=== PATIENT | male | born 1935 | race Caucasian/White ===

== ENCOUNTER 2019-03-29 05:36 | Inpatient (IN) ==
[2019-03-29] MEDS ORDERED: SODIUM CHLORIDE 0.9% 1000ML 1,000 ML IV ONE (05:51)
[2019-03-29] MEDS ORDERED: fentaNYL citrate 100 MCG/2 ML VIAL IV STA ×2 (05:51→06:10)
[2019-03-29 06:06] LABS: Eosinophils # (auto) 0.14 K/uL (0-0.5); Eosinophils % (auto) 2.2 %; Hemoglobin 13.2 g/dL (14.0-18.0); Immature Granulocytes # (auto) 0.01 K/uL (0.00-0.02); Immature Granulocytes % (auto) 0.2 %; Lymphocytes # (auto) 2.09 K/uL (1.2-3.4); Lymphocytes % (auto) 33.2 %; Mean Corpuscular Hemoglobin 32.8 pg (25-34); Mean Corpuscular Hgb Conc 32.2 g/dL (32-36); Mean Corpuscular Volume 101.7 fL (80-100); Mean Platelet Volume 10.2 fL (7.4-10.4); Monocytes # (auto) 0.73 K/uL (0.11-0.59); Monocytes % (auto) 11.6 %; Neutrophils # (auto) 3.32 K/uL (1.4-6.5); Neutrophils % (auto) 52.8 %; Platelet Count 145 K/uL (130-400); RDW Coefficient of Variation 14.2 % (11.5-14.5); RDW Standard Deviation 52.6 fL (36.4-46.3); Red Blood Count 4.03 M/uL (4.7-6.1); White Blood Count 6.29 K/uL (4.8-10.8)
[2019-03-29 06:14] LABS: Alanine Aminotransferase 25 U/L (12-78); Albumin Level 3.4 gm/dl (3.4-5.0); Aspartate Aminotransferase 30 U/L (15-37); BUN Creatinine Ratio 23.9 (10-20); Blood Urea Nitrogen 21 mg/dl (7-18); Calcium 9.1 mg/dl (8.5-10.1); Carbon Dioxide 30 mmol/L (21-32); Chloride 105 mmol/L (98-107); Creatinine Clr Calc Pharmacy 65.1 ml/min; Est GFR (African American) 92.9; Est GFR (Non-African American) 80.2; Glucose 115 mg/dl (70-99); Lipase 268 U/L (73-393); Potassium 3.9 mmol/L (3.5-5.1); Sodium 139 mmol/L (136-145)
[2019-03-29 06:19] LABS: Alkaline Phosphatase 76 U/L (45-117); Bilirubin,Total 0.7 mg/dl (0.2-1); Globulin 3.4 gm/dl (2.5-4.0); Total Protein 6.8 gm/dl (6.4-8.2); Troponin I < 0.015 ng/ml (0-0.045)
[2019-03-29] MEDS ORDERED: IOVERSOL 100ml IV PRN (06:25)
--- NOTE | 2019-03-29 06:39 | CT Scan Report ---
CT abd pelvis IV con only CT DOSE: 374.23 mGy.cm CLINICAL HISTORY: Diffuse abdominal pain. TECHNIQUE: The patient was scanned in a dynamic helical fashion during intravenous administration of 92 cc Optiray 320 A dose lowering technique was utilized adhering to the principles of ALARA. COMPARISON STUDY: X-ray study dated 03/29/2019 FINDINGS: The heart is enlarged. There is a 9 mm left lower lobe pulmonary nodule. There is a 3 mm left lower l obe pulmonary nodule. There are subpleural fibrotic/atelectatic changes. There is a 9 mm subpleural r ight middle lobe opacity. No hepatic masses are visualized. No gallbladder lesions are evident. Splenic masses are visualized. No pancreatic masses are visualized. There is borderline dilatation of the pancreatic duct. No adrenal masses are visualized. There is no hydronephrosis. No solid renal masses are visualized. There is colonic dilatation. There is decompression of the rectum and distal sigmoid. There is a mese nteric swirl sign indicative of a sigmoid volvulus. There is no free intraperitoneal air. There is no pneumatosis. There is no evidence of abdominal aortic aneurysm. There is no significant ascites. There are borderline enlarged aortocaval lymph nodes. There is an indwelling IVC filter. There are postsurgical changes of a ventral hernia repair. No destructive skeletal lesions are visualized. IMPRESSION: 1. 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 2. Nonspecific lower lobe pulmonary nodules. The largest measures 9 mm. 3-6 month follow-up is recomm ended. Please refer to below summary of Fleischner criteria recommendations for follow-up of incidental CT n odules ([facility], Guidelines for management of small pulmonary nodules detected on CT scans: A sta tement from the Fleischner [employer], Radiology 237: [id number].) SOLID NODULES Solitary nodule size: <6 mm * low risk patients: no follow-up needed * high risk patients: optional CT at 12 months Solitary nodule size: 6-8 mm * low risk patients: follow-up at 6-12 months, then consider further follow-up at 18-24 months * high risk patients: initial follow-up CT at 6-12 months and then at 18-24 months if no change Solitary nodule size: >8 mm * either low or high risk patients - consider follow-up CT at 3 months, and/or CT-PET, and/or biopsy Multiple nodules size: <6 mm * low risk patients: no routine follow-up * high risk patients: optional CT at 12 months Multiple nodules size: 6-8 mm * low risk patients: follow-up at 3-6 months, then consider further follow-up at 18-24 months * high risk patients: follow-up at 3-6 months, then at 18-24 months if no change Multiple nodules size: >8 mm * low risk patients: follow-up at 3-6 months, then consider further follow-up at 18-24 months * high risk patients: follow-up at 3-6 months, then at 18-24 months if no change Note: newly detected indeterminate nodule in persons 35 years of age or older. * low risk patients: minimal or absent history of smoking and/or other known risk factors * high risk patients: history of smoking or of other known risk factors (e.g. first degree relative with lung cancer, or exposure to asbestos, radon, uranium) * if a nodule up to 8 mm is partly solid or is ground glass further follow-up is required after [address] m [address] to exclude possible slow growing adenocarcinoma (SOUTH) SUBSOLID NODULES Solitary pure ground-glass nodule * nodule size <6 mm - no CT follow-up required * nodule size >=6 mm - follow-up CT at 6-12 months, then every 2 years until 5 years Solitary part-solid nodule * nodule size <6 mm - no CT follow-up required * nodule size >=6 mm - follow-up CT at 3-6 months. If unchanged, and solid component remains <6 mm, then annual follow-up for 5 years Multiple subsolid nodules * nodule size <6 mm - follow-up CT at 3-6 months, consider further follow-up at 2 and 4 years if sta ble * nodule size >=6 mm - follow-up CT at 3-6 months, subsequent management based on the most suspiciou s nodule(s) ACT 112: Negative or not required by law. Electronically signed by: Calderon Menendez M.D. 03/29/2019 6:38 AM
[2019-03-29] MEDS ORDERED: HYDROmorphone INJ 1 MG/ML SYRINGE IV STA (06:49)
[2019-03-29] MEDS ORDERED: HYDROmorphone INJ 1 MG/ML SYRINGE ONE (06:50)
--- NOTE | 2019-03-29 06:50 | XRay Report ---
XR abdomen 2V w PA chest CLINICAL HISTORY: Abdominal distention COMPARISON STUDY: No previous studies for comparison. FINDINGS: There are postsurgical changes of a midline sternotomy. There is mediastinal widening possi negrita secondary to aortic tortuosity/ectasia. There is no free air. There is colonic dilatation with a paucity of rectal gas. Clinical correlation regards to distal large bowel obstruction is recommended. IMPRESSION: 1. No free air identified 2. Dilated colon with a paucity of rectal gas. The findings raise the possibility of a distal colonic obstruction. ACT 112: Negative or not required by law. Electronically signed by: Calderon Menendez M.D. 03/29/2019 6:49 AM
[2019-03-29 06:52] LABS: Appearance Urine Clear (Clear); Bilirubin Urine Negative (Negative); Blood Urine Negative (Negative); Color Urine Yellow; Glucose Urine UA Negative (Negative); Ketones Urine Negative (Negative); Leukocyte Esterase Urine Negative (Negative); Nitrite Urine Negative (Negative); Protein Urine Negative (Negative); Specific Gravity Urine 1.022 (1.000-1.030); Urobilinogen Urine Negative (Negative); pH Urine 7.5 (4.5-7.5)
--- NOTE | 2019-03-29 07:17 | Emergency Department Note ---
Entered by Jovanni Saravia acting as a scribe for History of Present Illness General Chief complaint: Abdominal Pain Stated complaint: abdominal pain Time Seen by Provider: 03/29/19 05:41 Source: patient History of Present Illness Onset (ago): day(s) 2 Location: abdomen Severity: similar to prior episodes Pain Consistency: + other (worsening) Associated symptoms: + other (Positive for weakness. Negative for CP and SOB. ) The patient is an 83 year old male who presents to the emergency department with complaints of worsening abdominal pain beginning two days ago. The patient states that he developed abdominal pain two days ago that worsened this morning. 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 He reports that he had part of his small bowel removed at that time. The patient states that his symptoms feel similar to his past SBO. He also complains of weakness and back pain. She notes that he did not move his bowels much today. He denies any CP and SOB. Home Medications Home Medications Medication Instructions Recorded Confirmed Type aspirin 81 mg chewable tablet 81 mg PO DAILY 02/11/19 03/29/19 History atorvastatin 20 mg tablet 20 mg PO DAILY 02/11/19 03/29/19 History finasteride 5 mg tablet 5 mg PO DAILY 02/11/19 03/29/19 History furosemide 20 mg tablet 20 mg PO DAILY 02/11/19 03/29/19 History iron,carbonyl 65 mg-vitamin C 125 1 tab PO DAILY 02/11/19 03/29/19 History mg tablet,delayed release latanoprost 0.005 % eye drops 1 drops OP HS ml 02/11/19 03/29/19 History lisinopril 5 mg tablet 5 mg PO DAILY 02/11/19 03/29/19 History metoprolol succinate 25 mg capsule 25 mg PO DAILY 02/11/19 03/29/19 History sprinkle, ext. release 24 hr jhzwxcdmqfpx-hngedafj-vbmmba 1 tab PO DAILY 02/11/19 03/29/19 History rivaroxaban 20 mg tablet 20 mg PO QPM 02/11/19 03/29/19 History tamsulosin 0.4 mg capsule 0.4 mg PO DAILY 02/11/19 03/29/19 History vit 1 cap PO DAILY cap 02/11/19 03/29/19 History C,E,zinc,Xt-wnxkm-9-lutein-zeaxanthin 250 mg-2.5 mg-0.5 mg capsule temazepam 30 mg capsule 30 mg PO DAILY #30 cap 02/12/19 03/29/19 Rx Allergies Allergy/AdvReac Type Severity Reaction Status Date / Time No Known Allergies Allergy Unverified 02/11/19 13:36 Past Med/Surg History Medical History (Updated 03/29/19 @ 07:05 by Jovanni Saravia) History of blood clots HTN (hypertension), benign Sensorineural hearing loss of both ears Surgical History (Updated 02/11/19 @ 13:45 by Tom Millard) History of ankle surgery due to broken ankle History of aortic valve replacement History of back surgery History of left cataract surgery History of right cataract surgery Family History (Updated 02/11/19 @ 13:46 by Tom Millard) Mother Heart disease Hypertension Father Hypertension Social History (Updated 02/11/19 @ 13:49 by Tom Millard) Preferred Language: [place]aguan Communication Ability: Effective Hearing Ability: Hard of Hearing marital status: Single Current Living Situation: Alone current occupational status: retired Feels Safe at Home: Yes Smoking Status: Never smoker Second Hand Exposure: No ; Hx Alcohol Use: Yes Alcohol type: wine Alcohol Intake Frequency: Weekly Alcohol Intake Frequency Comment: 2 drinks per week Hx Substance Use: No Dental Care, Regularly: Yes Seatbelt Use: always Review of Systems See HPI for pertinent positives & negatives. and A total of 10 systems reviewed and were otherwise negative Physical Exam Vital Signs Vital Signs - 24 hr 03/29/19 05:40 03/29/19 05:53 03/29/19 06:28 Temperature 36.4 C L Temperature Source Oral Pulse Rate 54 L Pulse Rate [Right Finger] 58 L Pulse Rhythm Regular Pulse Strength Normal Respiratory Rate 20 20 Respiratory Effort / Characteristics Non-Labored Spontaneous Respiratory Depth Normal Respiratory Pattern Regular Blood Pressure 175/100 H Blood Pressure [Right Arm] 185/117 H Blood Pressure Mean 125 Blood Pressure Mean [Right Arm] 139 Pulse Oximetry 98 100 98 Oxygen Delivery Method Room Air Room Air Room Air Sepsis Recent Fever Within 48 Hours No Sepsis Action Taken by Nursing No Action Required 03/29/19 06:46 Temperature Temperature Source Pulse Rate Pulse Rate [Right Finger] 54 L Pulse Rhythm Pulse Strength Respiratory Rate 24 Respiratory Effort / Characteristics Respiratory Depth Respiratory Pattern Blood Pressure Blood Pressure [Right Arm] 153/105 H Blood Pressure Mean Blood Pressure Mean [Right Arm] 121 Pulse Oximetry 94 Oxygen Delivery Method Room Air Sepsis Recent Fever Within 48 Hours Sepsis Action Taken by Nursing HEENT: Head - normocephalic and atraumatic Pupils are equal, round, and reactive to light. Extraocular eye muscles are intact, and sclera are anicteric. Nose - moist nasal mucosa without discharge. Mouth - dry buccal mucosa. Oropharynx is nonerythematous and there is no tonsillar exudate or edema noted. Neck: Supple; no cervical lymphadenopathy. Heart: Regular rhythm and bradycardic. There is a normal S1 and S2 with no murmurs, clicks, or gallops appreciated. Lungs: Clear to auscultation bilaterally with no wheezes, rales, or rhonchi. Abdomen: Hard, significantly distended with tinkling bowel sounds. There are no palpable pulsatile masses or hepatosplenomegaly. The patient has guarding rigidity and rebound noted on physical exam. Diffuse abdominal distention. Extremities: No evidence of cyanosis clubbing. There are easily palpable peripheral pulses. Trace pedal edema in the legs. Skin: warm and dry with good turgor and no rashes. Course Course 0547: The patient was evaluated in room B2. A complete history and physical examination were performed. Nursing notes and previous electronic medical records were reviewed. IV lock was established and labs were drawn as above. 0602: Fentanyl Citrate 50mcg IV 0605: Sodium Chloride 1000 mls @ 999 mls/hr IV. The patient had a portable obstruction series which was concerning for free air versus volvulus. There is no obvious pulmonary pathology. 0614: Fentanyl Citrate 50mcg IV. The patient will go for CT scan of the abdomen/pelvis 0650: I reevaluated and updated the patient on the results of the labs and CT scan. 0651: Hydromorphone HCl 1mg IV 0653: Upon reevaluation, the patient is stable. I discussed the findings and the treatment plan with the patient. He expresses agreement and understanding. I spoke with of the Dr Edwin Sow [facility]. He will evaluate the patient. 0720: There is still significant pain. The patient was given 4 mg of IV morphine and 4 mg of IV Zofran. He is awaiting GI evaluation. Consultations Consultation #1: I reviewed the patient's case with Dr. Edwin Sow [facility]. He will evaluate the patient for further management. Time: 06:53 Administered Medications Ioversol (Optiray 320 100ml) 100 ml IV ONCE PRN PRN Reason: Interaction Checking Stop: 04/02/19 06:24 Last Admin: 03/29/19 06:26 Dose: 92 ml Documented by: [id number] Discontinued Medications Fentanyl Citrate (Fentanyl Citrate) 50 mcg IV NOW STA Stop: 03/29/19 05:52 Last Admin: 03/29/19 06:02 Dose: 50 mcg Documented by: [id number] Fentanyl Citrate (Fentanyl Citrate) 50 mcg IV NOW STA Stop: 03/29/19 06:11 Last Admin: 03/29/19 06:14 Dose: 50 mcg Documented by: [id number] Hydromorphone HCl (Dilaudid) 1 mg IV NOW STA Stop: 03/29/19 06:50 Last Admin: 03/29/19 06:51 Dose: 1 mg Documented by: [id number] Hydromorphone HCl (Dilaudid) Confirm Administered Dose 1 mg .ROUTE .STK-MED ONE Stop: 03/29/19 06:51 Last Admin: 03/29/19 06:51 Dose: Not Given Documented by: [id number] Sodium Chloride (Nss 1000ml) 1,000 mls @ 999 mls/hr IV .Q1H1M ONE Stop: 03/29/19 06:51 Last Admin: 03/29/19 06:05 Dose: 999 mls/hr Documented by: [id number] Medical Decision Making Differential Diagnosis Differential diagnoses includes: SBO, gastritis, cystitis, and ureteral calculi. Medical Records Attestation: I reviewed the patient's medical records. Home Medications Current Medication List: was personally reviewed by me Laboratory Data Attestation: I reviewed the patient's lab results. Result diagrams: 03/29/19 05:30 03/29/19 05:30 Lab Results 03/29/19 03/29/19 03/29/19 Range/Units 05:30 05:30 06:44 WBC 6.29 (4.8-10.8) K/uL RBC 4.03 L (4.7-6.1) M/uL Hgb 13.2 L (14.0-18.0) g/dL Hct 41.0 L (42-52) % MCV 101.7 H (80-100) fL MCH 32.8 (25-34) pg MCHC 32.2 (32-36) g/dL RDW Std Deviation 52.6 H (36.4-46.3) fL RDW Coeff of Any 14.2 (11.5-14.5) % Plt Count 145 (130-400) K/uL MPV 10.2 (7.4-10.4) fL Immature Gran % (Auto) 0.2 % Neut % (Auto) 52.8 % Lymph % (Auto) 33.2 % Clinch % (Auto) 11.6 % Eos % (Auto) 2.2 % Baso % (Auto) 0.0 % Immature Gran # (Auto) 0.01 (0.00-0.02) K/uL Neut # (Auto) 3.32 (1.4-6.5) K/uL Lymph # (Auto) 2.09 (1.2-3.4) K/uL Clinch # (Auto) 0.73 H (0.11-0.59) K/uL Eos # (Auto) 0.14 (0-0.5) K/uL Baso # (Auto) 0.00 (0-0.2) K/uL Sodium 139 (136-145) mmol/L Potassium 3.9 (3.5-5.1) mmol/L Chloride 105 (98-107) mmol/L Carbon Dioxide 30 (21-32) mmol/L Anion Gap 4.0 (3-11) BUN 21 H (7-18) mg/dl Creatinine 0.89 (0.6-1.4) mg/dl Est Cr Clr Drug Dosing 65.1 ml/min Est GFR ( Amer) 92.9 Est GFR (Non-Af Amer) 80.2 BUN/Creatinine Ratio 23.9 H (10-20) Glucose 115 H (70-99) mg/dl Calcium 9.1 (8.5-10.1) mg/dl Total Bilirubin 0.7 (0.2-1) mg/dl AST 30 (15-37) U/L ALT 25 (12-78) U/L Alkaline Phosphatase 76 (45-117) U/L Troponin I < 0.015 (0-0.045) ng/ml Total Protein 6.8 (6.4-8.2) gm/dl Albumin 3.4 (3.4-5.0) gm/dl Globulin 3.4 (2.5-4.0) gm/dl Albumin/Globulin Ratio 1.0 (0.9-2) Lipase 268 (73-393) U/L Urine Color Yellow Urine Appearance Clear (Clear) Urine pH 7.5 (4.5-7.5) Ur Specific [place] 1.022 (1.000-1.030) Urine Protein Negative (Negative) Urine Glucose (UA) Negative (Negative) Urine Ketones Negative (Negative) Urine Blood Negative (Negative) Urine Nitrite Negative (Negative) Urine Bilirubin Negative (Negative) Urine Urobilinogen Negative (Negative) Ur Leukocyte Esterase Negative (Negative) Imaging Data Radiologist's Impression: Radiology results as stated below per my review and the radiologist's interpretation: CT abd pelvis IV con only FINDINGS: The heart is enlarged. There is a 9 mm left lower lobe pulmonary nodule. There is a 3 mm left lower lobe pulmonary nodule. There are subpleural fibrotic/atelectatic changes. There is a 9 mm subpleural right middle lobe opacity. No hepatic masses are visualized. No gallbladder lesions are evident. Splenic masses are visualized. No pancreatic masses are visualized. There is borderline dilatation of the pancreatic duct. No adrenal masses are visualized. There is no hydronephrosis. No solid renal masses are visualized. There is colonic dilatation. There is decompression of the rectum and distal sigmoid. There is a mesenteric swirl sign indicative of a sigmoid volvulus. There is no free intraperitoneal air. There is no pneumatosis. There is no evidence of abdominal aortic aneurysm. There is no significant ascites. There are borderline enlarged aortocaval lymph nodes. There is an indwelling IVC filter. There are postsurgical changes of a ventral hernia repair. No destructive skeletal lesions are visualized. IMPRESSION: 1. 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 2. Nonspecific lower lobe pulmonary nodules. The largest measures 9 mm. 3-6 month follow-up is recommended. Please refer to below summary of Fleischner criteria recommendations for follow- up of incidental CT nodules ([facility], Guidelines for management of small pulmonary nodules detected on CT scans: A statement from the Fleischner [employer], Radiology 237: [phone].) SOLID NODULES Solitary nodule size: <6 mm * low risk patients: no follow-up needed * high risk patients: optional CT at 12 months Solitary nodule size: 6-8 mm * low risk patients: follow-up at 6-12 months, then consider further follow-up at 18-24 months * high risk patients: initial follow-up CT at 6-12 months and then at 18-24 months if no change Solitary nodule size: >8 mm * either low or high risk patients - consider follow-up CT at 3 months, and/or CT-PET, and/or biopsy Multiple nodules size: <6 mm * low risk patients: no routine follow-up * high risk patients: optional CT at 12 months Multiple nodules size: 6-8 mm * low risk patients: follow-up at 3-6 months, then consider further follow-up at 18-24 months * high risk patients: follow-up at 3-6 months, then at 18-24 months if no change Multiple nodules size: >8 mm * low risk patients: follow-up at 3-6 months, then consider further follow-up at 18-24 months * high risk patients: follow-up at 3-6 months, then at 18-24 months if no change Note: newly detected indeterminate nodule in persons 35 years of age or older. * low risk patients: minimal or absent history of smoking and/or other known risk factors * high risk patients: history of smoking or of other known risk factors (e.g. first degree relative with lung cancer, or exposure to asbestos, radon, uranium) * if a nodule up to 8 mm is partly solid or is ground glass further follow-up is required after 24 months to exclude possible slow growing adenocarcinoma (SOUTH) SUBSOLID NODULES Solitary pure ground-glass nodule * nodule size <6 mm - no CT follow-up required * nodule size >=6 mm - follow-up CT at 6-12 months, then every 2 years until 5 years Solitary part-solid nodule * nodule size <6 mm - no CT follow-up required * nodule size >=6 mm - follow-up CT at 3-6 months. If unchanged, and solid component remains <6 mm, then annual follow-up for 5 years Multiple subsolid nodules * nodule size <6 mm - follow-up CT at 3-6 months, consider further follow-up at 2 and 4 years if stable * nodule size >=6 mm - follow-up CT at 3-6 months, subsequent management based on the most suspicious nodule(s) ACT 112: Negative or not required by law. Electronically signed by: Calderon Menendez M.D. 03/29/2019 6:38 AM XR abdomen 2V w PA chest FINDINGS: There are postsurgical changes of a midline sternotomy. There is mediastinal widening possibly secondary to aortic tortuosity/ectasia. There is no free air. There is colonic dilatation with a paucity of rectal gas. Clinical correlation regards to distal large bowel obstruction is recommended. IMPRESSION: 1. No free air identified 2. Dilated colon with a paucity of rectal gas. The findings raise the possibility of a distal colonic obstruction. ACT 112: Negative or not required by law. Electronically signed by: Calderon Menendez M.D. 03/29/2019 6:49 AM ECG Data Attestation: I personally reviewed and interpreted this ECG as follows: Indication: + abdominal pain Rate (beats per minute): 53 Rhythm: + atrial fibrillation ECG ST segments: + ST depression (Lateral) Comparison ECG Date: no prior available Additional Comments: Slow ventricular response. Blood Pressure Blood Pressure Findings: Elevated blood pressure Blood Pressure Disposition: elevated BP felt to be situational MDM Narrative The patient is an 83 year old male who presents to the emergency department with complaints of worsening abdominal pain beginning two days ago. The patient has severe abdominal distention and pain. He has required multiple doses of IV analgesia. Patient has a sigmoid volvulus. I discussed the case with gastroenterology and they will evaluate the patient. Impression & Plan Sigmoid volvulus Discharge Plan Visit Data Chief Complaint: Abdominal Pain Stated Complaint: abdominal pain ED Provider: Liya Kim Discharge Problem: Sigmoid volvulus Patient Disposition: Being Evaluated by Surgeon Forms Stand Alone Forms: My [facility] Prescriptions Prescriptions: No Action latanoprost 0.005 % drops 1 drops OP HS RF: 0 Xarelto 20 mg tablet 20 mg PO QPM RF: 0 atorvastatin 20 mg tablet 20 mg PO DAILY RF: 0 lisinopril 5 mg tablet 5 mg PO DAILY RF: 0 metoprolol succinate 25 mg capsule,sprinkle,ER 24hr 25 mg PO DAILY RF: 0 furosemide 20 mg tablet 20 mg PO DAILY RF: 0 finasteride 5 mg tablet 5 mg PO DAILY RF: 0 tamsulosin [Flomax] 0.4 mg capsule 0.4 mg PO DAILY RF: 0 aspirin [Leslie Chewable Aspirin] 81 mg tablet,chewable 81 mg PO DAILY RF: 0 vit C,E,Zn,Nu--ykd-zeax 250-2.5-0.5 mg capsule 1 cap PO DAILY RF: 0 gbcrwyxajupd-kqfmkbvm-yswxaz tablet 1 tab PO DAILY RF: 0 Vitron-C 65 mg iron- 125 mg tablet,delayed release (DR/EC) 1 tab PO DAILY RF: 0 temazepam 30 mg capsule 30 mg PO DAILY Qty: 30 RF: 5 Referrals Referrals: Jaclyn Hitchcock MD [Primary Care Provider] - The scribe's documentation has been prepared under my direction and personally reviewed by me in its entirety. I confirm that the note above accurately reflects all work, treatment, procedures, and medical decision making performed by me.
[2019-03-29] MEDS ORDERED: MoRPHine SULFATE 4 MG/ML 1 ML CARP\\VIAL IV STA (07:23)
[2019-03-29] MEDS ORDERED: ONDANSETRON INJ 2 MG/ML 2 ML VIAL IV STA (07:23)
[2019-03-29] MEDS ORDERED: LIDOCAINE HCL 2% 2 ML VIAL/AMP(20MG/ML) INFIL ONE (07:54)
[2019-03-29] MEDS ORDERED: PROPOFOL IV EMULSION 10 MG/ML 20 ML VIAL IV ONE (07:54)
--- NOTE | 2019-03-29 08:09 | Gastrointestinal Consultation ---
Date of Consultation March 29, 2019 Assessment & Plan (1) Sigmoid volvulus: Proceed with emergent colonoscopy for sigmoid decompression. I did inform him, that if this is not successful, or if his sigmoid volvulus recurs, he will need surgery Consult surgery for further evaluation and recommendations. Continue supportive care. History of Present Illness Reason for Consultation: Sigmoid Volvulus History of Present Illness Rubén Thapa is an 83 yo CM who presented to the ER today with complaints of abdominal pain and bloating. He stated that his pain began 2 days prior to evaluation and was 8/10 in intensity. He denied any vomiting, but did have intermittent nausea with the bloating. 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 Lab studies in the ER revealed a slight decrease in H/H and a CT abd/pelvis revealed a sigmoid volvulus. I was contacted emergently for this. At the time I saw the patient in pre-op endoscopy area, he continued to complain of 9/10 abdominal pain, generalized, constant, radiating to his back. He states he has never had a sigmoid volvulus in the past, and does not remember the date of his last colonoscopy. He denies any further complaints. Allergies Allergy/AdvReac Type Severity Reaction Status Date / Time No Known Allergies Allergy Unverified 02/11/19 13:36 Home Medications Home Medications Medication Instructions Recorded Confirmed Type aspirin 81 mg chewable tablet 81 mg PO DAILY 02/11/19 03/29/19 History atorvastatin 20 mg tablet 20 mg PO DAILY 02/11/19 03/29/19 History finasteride 5 mg tablet 5 mg PO DAILY 02/11/19 03/29/19 History furosemide 20 mg tablet 20 mg PO DAILY 02/11/19 03/29/19 History iron,carbonyl 65 mg-vitamin C 125 1 tab PO DAILY 02/11/19 03/29/19 History mg tablet,delayed release latanoprost 0.005 % eye drops 1 drops OP HS ml 02/11/19 03/29/19 History lisinopril 5 mg tablet 5 mg PO DAILY 02/11/19 03/29/19 History metoprolol succinate 25 mg capsule 25 mg PO DAILY 02/11/19 03/29/19 History sprinkle, ext. release 24 hr [id number]-abeoxzwb-gpmtoe 1 tab PO DAILY 02/11/19 03/29/19 History rivaroxaban 20 mg tablet 20 mg PO QPM 02/11/19 03/29/19 History tamsulosin 0.4 mg capsule 0.4 mg PO DAILY 02/11/19 03/29/19 History vit 1 cap PO DAILY cap 02/11/19 03/29/19 History C,E,zinc,Te-tuene-7-lutein-zeaxanthin 250 mg-2.5 mg-0.5 mg capsule temazepam 30 mg capsule 30 mg PO DAILY #30 cap 02/12/19 03/29/19 Rx Patient History Medical History History of blood clots HTN (hypertension), benign Sensorineural hearing loss of both ears Surgical History History of ankle surgery due to broken ankle History of aortic valve replacement History of back surgery History of left cataract surgery History of right cataract surgery Family History Mother Heart disease Hypertension Father Hypertension Social History Preferred Language: Amharic Communication Ability: Effective Hearing Ability: Hard of Hearing marital status: Single Current Living Situation: Alone current occupational status: retired Feels Safe at Home: Yes Smoking Status: Never smoker Second Hand Exposure: No ; Hx Alcohol Use: Yes Alcohol type: wine Alcohol Intake Frequency: Weekly Alcohol Intake Frequency Comment: 2 drinks per week Hx Substance Use: No Dental Care, Regularly: Yes Seatbelt Use: always Review of Systems Review of Systems: All systems reviewed & are unremarkable except as noted in HPI & below Physical Exam Constitutional: + ill appearing and + thin Eyes: PERRL, conjunctivae normal, anicteric sclerae ENMT: external ear and nose normal, oropharynx normal Neck: trachea midline, no thyromegaly Respiratory: normal respiratory effort, lungs clear to auscultation Cardiovascular: Rate/Rhythm: + irregularly irregular Gastrointestinal (Abdomen): Inspection/Auscultation: + abdomen distended; + abnormal bowel sounds (minimal with trace tinkling auscultated) Percussion/Palpation: + abdomen tender; no guarding and abdomen not rigid Skin: no rashes, warm and dry Psychiatric: A+Ox3, euthymic affect Results & Data Vital Signs (Past 12 Hours) Vital Signs Temp Pulse Pulse Resp BP BP Pulse Ox 03/29/19 07:53 62 28 H 163/102 H 96 03/29/19 07:14 67 28 H 181/120 H 03/29/19 06:46 54 L 24 153/105 H 94 03/29/19 06:28 58 L 20 185/117 H 98 03/29/19 05:53 100 03/29/19 05:40 36.4 C L 54 L 20 175/100 H 98 PG Care Time/CCT Total # of Minutes Spent Total Time Spent with Patient: Total time spent is greater than 50% in coordination of care (as documented) at patient's floor/unit and/or counseling patient:
--- NOTE | 2019-03-29 08:19 | Anesthesiology Consultation ---
Date of Service March 29, 2019 Assessment & Plan (1) Encounter for pre-operative examination: Chart Review Chart Review: Acceptable Risk for Surgery and Patient NOT seen in Pre Admission Testing Consults Requested none History Surgery Operation Date: 03/29/19 16:30 Proposed Procedures p Colonoscopy Dr. Edwin Sanches Case, DO Height/Weight Height: 5 ft 9 in Weight: 73.7 kg Allergies Allergy/AdvReac Type Severity Reaction Status Date / Time No Known Allergies Allergy Unverified 02/11/19 13:36 Medications Home Medications Medication Instructions Recorded Confirmed Last Taken aspirin 81 mg chewable tablet 81 mg PO DAILY 02/11/19 03/29/19 03/28/19 atorvastatin 20 mg tablet 20 mg PO DAILY 02/11/19 03/29/19 03/28/19 finasteride 5 mg tablet 5 mg PO DAILY 02/11/19 03/29/19 03/28/19 furosemide 20 mg tablet 20 mg PO DAILY 02/11/19 03/29/19 03/28/19 iron,carbonyl 65 mg-vitamin C 125 1 tab PO DAILY 02/11/19 03/29/19 03/28/19 mg tablet,delayed release latanoprost 0.005 % eye drops 1 drops OP HS ml 02/11/19 03/29/19 03/28/19 lisinopril 5 mg tablet 5 mg PO DAILY 02/11/19 03/29/19 03/28/19 metoprolol succinate 25 mg capsule 25 mg PO DAILY 02/11/19 03/29/19 03/28/19 sprinkle, ext. release 24 hr [id number]-tjmcnacf-tejarl 1 tab PO DAILY 02/11/19 03/29/19 03/28/19 rivaroxaban 20 mg tablet 20 mg PO QPM 02/11/19 03/29/19 03/28/19 tamsulosin 0.4 mg capsule 0.4 mg PO DAILY 02/11/19 03/29/19 03/28/19 vit 1 cap PO DAILY cap 02/11/19 03/29/19 03/28/19 C,E,zinc,Go-umlpw-3-lutein-zeaxanthin 250 mg-2.5 mg-0.5 mg capsule temazepam 30 mg capsule 30 mg PO DAILY #30 cap 02/12/19 03/29/19 03/28/19 NPO Date Last Intake of Fluids: 03/28/19 Time Last Intake of Fluids: 18:00 Date Last Intake of Solids: 03/28/19 Time Last Intake of Solids: 23:00 Past Medical History Medical History History of blood clots HTN (hypertension), benign Sensorineural hearing loss of both ears Past Family History Family History Mother Heart disease Hypertension Father Hypertension Past Surgical History Surgical History History of ankle surgery due to broken ankle History of aortic valve replacement History of back surgery History of left cataract surgery History of right cataract surgery Social History Smoking Status: Never smoker Hx Alcohol Use: Yes Alcohol type: wine Hx Substance Use: No Physical Exam Vital Signs Last Vital Signs Temp 36.6 C 03/29/19 08:13 Pulse 50 L 03/29/19 08:13 Resp 18 03/29/19 08:13 BP 169/117 H 03/29/19 08:13 Pulse Ox 97 03/29/19 08:13 Testing Laboratory Results 03/29/19 05:30 03/29/19 05:30 Urine Color Yellow 03/29/19 06:44 Urine Appearance Clear (Clear) 03/29/19 06:44 Urine pH 7.5 (4.5-7.5) 03/29/19 06:44 Ur Specific [place] 1.022 (1.000-1.030) 03/29/19 06:44 Urine Protein Negative (Negative) 03/29/19 06:44 Urine Glucose (UA) Negative (Negative) 03/29/19 06:44 Urine Ketones Negative (Negative) 03/29/19 06:44 Urine Nitrite Negative (Negative) 03/29/19 06:44 Ur Leukocyte Esterase Negative (Negative) 03/29/19 06:44
[2019-03-29] MEDS ORDERED: ePHEDrine sulfate 50 MG/ML AMP IV PRN (08:23)
[2019-03-29] MEDS ORDERED: ATROPINE SULFATE 0.1 MG/ML 10ML SYR IV PRN (08:23)
--- NOTE | 2019-03-29 08:57 | GI REPORT ---
Patient Name: Rubén Thapa Procedure Date: 03/29/2019 8:03 AM Date of : 1935 Admit Type: Emergency Department Age: 83 Gender: Male Attending MD: Red Pineda DO Procedure: Colonoscopy Providers: Red Pineda DO Referring MD: Referred Self Indications: Volvulus Medicines: Monitored Anesthesia Care Complications: No immediate complications. Estimated Blood Loss: Estimated blood loss: none. Procedure: Pre-Anesthesia Assessment: - Prior to the procedure, a History and Physical was performed, and patient medications and allergies were reviewed. The patient's tolerance of previous anesthesia was also reviewed. The risks and benefits of the procedure and the sedation options and risks were discussed with the patient. All questions were answered, and informed consent was obtained. Prior Anticoagulants: The patient last took aspirin 1 day and Xarelto (rivaroxaban) 1 day prior to the procedure. ASA Grade Assessment: III - A patient with severe systemic disease. After reviewing the risks and benefits, the patient was deemed in satisfactory condition to undergo the procedure. After I obtained informed consent, the scope was passed under direct vision. Throughout the procedure, the patient's blood pressure, pulse, and oxygen saturations were monitored continuously. The Scope was introduced through the anus and advanced to the transverse colon for evaluation. This was the intended extent. The colonoscopy was somewhat difficult due to inadequate bowel prep. The patient tolerated the procedure well. The quality of the bowel preparation was inadequate. No anatomical landmarks were photographed. Findings: The perianal and digital rectal examinations were normal. A probable volvulus with apparent localized ischemia was found in the sigmoid colon. Decompression of the volvulus was attempted, and partial decompression was achieved. Impression: - Preparation of the colon was inadequate. - Probable volvulus. Partial decompression achieved. - No specimens collected. Recommendation: - Admit the patient to [facility] for ongoing care. - NPO. - No repeat colonoscopy. - Refer to a surgeon. - Fleets Enema today x 2 - Check Abdominal series following enema therapy. Red Pineda DO 03/29/2019 8:56:41 AM This report has been signed electronically. Note Initiated On: 03/29/2019 8:03 AM Number of Addenda: 0 I attest to the content of the Intraoperative Record and orders documented therein, exceptions below {[id number]}
--- NOTE | 2019-03-29 08:59 | History & Physical Report ---
Date of Service March 29, 2019 Assessment & Plan (1) Sigmoid volvulus: s/p decompression by Dr. Pineda plan for Fleet Enema q6 x 3 doses check Abdominal film this afternoon consult general surgery keep NPO except medications that are needed, such as metoprolol (2) HTN (hypertension), benign: use Hydralazine PRN allowed to take toprol (3) Atrial fibrillation: hold Xarelto continue metoprolol for rate control HR in the 50's on admission (4) H/O mitral valve repair: safe to hold Xarelto, he takes the Xarelto for afib (5) History of aortic valve replacement: porcine valve on the Xarelto for afib History of Present Illness Chief Complaint: My abdomen hurt Primary Care Provider: Jaclyn Hitchcock MD 83 yo male with history of porcine AV replacement, mitral valve repair, 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 The patient gives a history of having intermittent abdominal pain, would not occur too frequently, and he described it as a gas pain and if he would push on his abdomen the pain would go away. Since 2008, he says that he did not have any serious abdominal issues other than some hernias. Last night he started to have some pain after eating dinner, the pain was diffuse. It did not get better with position change. It was associated with some nausea. He could not move his bowels last night. The pain kept him up all night and he felt like his abdomen was getting more distended. He called his neighbor to ask her to take him to the ED, she called ambulance that brought him here. In the ED his abdominal film showed dilated colon with no air in colon distally suggesting an obstruction. CT abdomen/pelvis showed sigmoid volvulus. Dr. Pineda took the patient for colonoscopy and decompression immediately this morning. Saw patient after procedure, he was feeling much better. No abdominal pain, no nausea. Discussed with Dr. Reyes, he will likely need surgical intervention to fix the volvulus. Allergies Allergy/AdvReac Type Severity Reaction Status Date / Time No Known Allergies Allergy Unverified 02/11/19 13:36 Home Medications Home Medications Medication Instructions Recorded Confirmed Type aspirin 81 mg chewable tablet 81 mg PO DAILY 02/11/19 03/29/19 History atorvastatin 20 mg tablet 20 mg PO DAILY 02/11/19 03/29/19 History finasteride 5 mg tablet 5 mg PO DAILY 02/11/19 03/29/19 History furosemide 20 mg tablet 20 mg PO DAILY 02/11/19 03/29/19 History iron,carbonyl 65 mg-vitamin C 125 1 tab PO DAILY 02/11/19 03/29/19 History mg tablet,delayed release latanoprost 0.005 % eye drops 1 drops OP HS ml 02/11/19 03/29/19 History lisinopril 5 mg tablet 5 mg PO DAILY 02/11/19 03/29/19 History metoprolol succinate 25 mg capsule 25 mg PO DAILY 02/11/19 03/29/19 History sprinkle, ext. release 24 hr fpjixiyijaiq-crwvskfz-urcvqt 1 tab PO DAILY 02/11/19 03/29/19 History rivaroxaban 20 mg tablet 20 mg PO QPM 02/11/19 03/29/19 History tamsulosin 0.4 mg capsule 0.4 mg PO DAILY 02/11/19 03/29/19 History vit 1 cap PO DAILY cap 02/11/19 03/29/19 History C,E,zinc,Qf-cxmyo-6-lutein-zeaxanthin 250 mg-2.5 mg-0.5 mg capsule temazepam 30 mg capsule 30 mg PO DAILY #30 cap 02/12/19 03/29/19 Rx Past Med/Surg History Medical History (Updated 03/29/19 @ 08:18 by Shahid Cruz MD) History of blood clots HTN (hypertension), benign Sensorineural hearing loss of both ears Surgical History (Updated 03/30/19 @ 00:21 by Gilles Marvin DO) H/O mitral valve repair History of ankle surgery due to broken ankle History of aortic valve replacement History of back surgery History of left cataract surgery History of right cataract surgery Family History Mother Heart disease Hypertension Father Hypertension Social History Preferred Language: Spanish Communication Ability: Effective Hearing Ability: Hard of Hearing Beliefs That Will Affect Care: None marital status: Single Current Living Situation: Alone current occupational status: retired Other Information That Helps Us Care for You: No Feels Safe at Home: Yes Safety Concerns: Feels Safe At This Time Smoking Status: Never smoker Second Hand Exposure: No ; Hx Alcohol Use: No Hx Substance Use: No Dental Care, Regularly: Yes Seatbelt Use: always Review of Systems Review of Systems: All systems reviewed & are unremarkable except as noted in HPI & below Respiratory: no cough and no dyspnea Cardiovascular: no chest pain and no edema Gastrointestinal: + abdominal pain, + bloating, + nausea and + constipation; no vomiting and no diarrhea/loose stools Physical Exam Constitutional: WD/WN, vitals as above Eyes: PERRL, conjunctivae normal, anicteric sclerae ENMT: external ear and nose normal, oropharynx normal Neck: trachea midline, no thyromegaly Respiratory: normal respiratory effort, lungs clear to auscultation Cardiovascular: Rate/Rhythm: regular rate and + irregularly irregular Heart Sounds: normal S1 and normal S2 (artifical sounding); no murmur Vessels: no JVD Extremities: normal capillary refill; no edema Gastrointestinal (Abdomen): normal bowel sounds, soft, nontender, no hepatosplenomegaly Musculoskeletal: no cyanosis or clubbing, extremities motor strength 5/5 Skin: no rashes, warm and dry Neurologic: patellar DTR's 2+ bilat, sensation intact and PERRL, EOMI, accommodation nl, no face palsy, no dysarthria Psychiatric: A+Ox3, euthymic affect Lymphatic: no cervical or axillary lymphadenopathy Results & Data Vital Signs (Past 12 Hours) Vital Signs Temp Pulse Pulse Resp BP BP Pulse Ox 03/29/19 08:13 36.6 C 50 L 18 169/117 H 97 03/29/19 07:53 62 28 H 163/102 H 96 03/29/19 07:14 67 28 H 181/120 H 03/29/19 06:46 54 L 24 153/105 H 94 03/29/19 06:28 58 L 20 185/117 H 98 03/29/19 05:53 100 03/29/19 05:40 36.4 C L 54 L 20 175/100 H 98 Laboratory Results Laboratory Results - last 24 hr 03/29/19 03/29/19 03/29/19 05:30 05:30 06:44 WBC 6.29 RBC 4.03 L Hgb 13.2 L Hct 41.0 L MCV 101.7 H MCH 32.8 MCHC 32.2 RDW Std Deviation 52.6 H RDW Coeff of Any 14.2 Plt Count 145 MPV 10.2 Immature Gran % (Auto) 0.2 Neut % (Auto) 52.8 Lymph % (Auto) 33.2 [place] % (Auto) 11.6 Eos % (Auto) 2.2 Baso % (Auto) 0.0 Immature Gran # (Auto) 0.01 Neut # (Auto) 3.32 Lymph # (Auto) 2.09 [place] # (Auto) 0.73 H Eos # (Auto) 0.14 Baso # (Auto) 0.00 Sodium 139 Potassium 3.9 Chloride 105 Carbon Dioxide 30 Anion Gap 4.0 BUN 21 H Creatinine 0.89 Est Cr Clr Drug Dosing 65.1 Est GFR ( Amer) 92.9 Est GFR (Non-Af Amer) 80.2 BUN/Creatinine Ratio 23.9 H Glucose 115 H Calcium 9.1 Total Bilirubin 0.7 AST 30 ALT 25 Alkaline Phosphatase 76 Troponin I < 0.015 Total Protein 6.8 Albumin 3.4 Globulin 3.4 Albumin/Globulin Ratio 1.0 Lipase 268 Urine Color Yellow Urine Appearance Clear Urine pH 7.5 Ur Specific [place] 1.022 Urine Protein Negative Urine Glucose (UA) Negative Urine Ketones Negative Urine Blood Negative Urine Nitrite Negative Urine Bilirubin Negative Urine Urobilinogen Negative Ur Leukocyte Esterase Negative Diagnostic Findings XR abdomen min 2V IMPRESSION: Improved exam with no current evidence for significant bowel distention. CT abdomen/pelvis IMPRESSION: 1. 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 2. Nonspecific lower lobe pulmonary nodules. The largest measures 9 mm. 3-6 month follow-up is recommended. Code Status & VTE Plan Code Status full code VTE Prophylaxis Plan VTE Prophylaxis will be ordered: Yes PG Care Time/CCT Total # of Minutes Spent Total Time Spent with Patient: Total time spent is greater than 50% in coordination of care (as documented) at patient's floor/unit and/or counseling patient:
[2019-03-29] MEDS ORDERED: ACETAMINOPHEN 325 MG TAB PO PRN (11:17)
[2019-03-29] MEDS ORDERED: ONDANSETRON INJ 2 MG/ML 2 ML VIAL IV PRN (11:17)
[2019-03-29] MEDS: METOPROLOL SUCC 25MG EXT REL TAB PO SCH (12:29)
[2019-03-29] MEDS: SOD PHOSPHATE/SOD BIPHOSPHATE ENEMA 132 ML BTL PR SCH ×2 (12:30→18:40)
--- NOTE | 2019-03-29 15:20 | Anesthesiology Progress Note ---
Date of Service March 29, 2019 Anesthesia Post Procedure Vital Signs Vital Signs: Temp Pulse Pulse Resp BP BP Pulse Ox 03/29/19 12:28 61 115/79 03/29/19 11:00 36.4 C L 65 18 128/78 94 03/29/19 09:58 58 L 16 108/76 96 03/29/19 09:38 61 16 116/80 97 03/29/19 09:22 65 16 123/86 97 03/29/19 09:07 67 16 128/84 97 03/29/19 09:00 68 16 107/86 97 03/29/19 08:53 50 L 16 85/62 L 97 03/29/19 08:13 36.6 C 50 L 18 169/117 H 97 03/29/19 07:53 62 28 H 163/102 H 96 03/29/19 07:14 67 28 H 181/120 H 03/29/19 06:46 54 L 24 153/105 H 94 03/29/19 06:28 58 L 20 185/117 H 98 03/29/19 05:53 100 03/29/19 05:40 36.4 C L 54 L 20 175/100 H 98 Pain Intensity Abdomen: Pain Intensity: 9 Lower Back: Pain Intensity: 8 Transfer of Care Handoff Completed per policy Notes Mental Status: alert / awake / arousable Patient Amnestic to Procedure: Yes Nausea / Vomiting: adequately controlled Pain: adequately controlled Airway Patency, RR, SpO2: stable & adequate BP & HR: stable & adequate Hydration State: stable & adequate Anesthetic Complications: no major complications apparent and Pt Satisfied with anesthetic care
--- NOTE | 2019-03-29 15:52 | XRay Report ---
XR abdomen min 2V CLINICAL HISTORY: sigmoid volvulus, s/p decompression COMPARISON STUDY: 03/29/2019 5:53 AM FINDINGS: Considerable interval improvement in the appearance of the bowel pattern. No evidence for f ree air or obstructive change. Persistent air within the small bowel as well as colon diminished from the prior study. Mild residual contrast within a trabeculated bladder. IMPRESSION: Improved exam with no current evidence for significant bowel distention. ACT 112: Negative or not required by law. The above report was generated using voice recognition software. It may contain grammatical, syntax or spelling errors. Electronically signed by: Eliseo Bynum M.D. 03/29/2019 3:50 PM
[2019-03-29] MEDS: LATANOPROST 0.005% OP SOLN 2.5 ML BTL OPB SCH (20:26)
[2019-03-29] MEDS ORDERED: TEMAZEPAM 15 MG CAPSULE PO ONE (20:50)
[2019-03-30] MEDS ORDERED: TEMAZEPAM 15 MG CAPSULE ONE (00:06)
[2019-03-30] MEDS: SOD PHOSPHATE/SOD BIPHOSPHATE ENEMA 132 ML BTL PR SCH (00:07)
--- NOTE | 2019-03-30 07:03 | Surgery Consultation ---
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 Delayed post procedure KUB showed no evidence of recurrence. The patient is feeling well. He would be at high risk for surgical intervention with a difficult procedure related to all of his previous abdominal surgery. I explained to the patient that the usual recommendation would be to remove the sigmoid colon. He is not sure that he wants surgery. We discussed the fact that it can recur. His statements indicated that he would rather wait until it recurred to then consider surgery. We also discussed the blood supply problem that can occur. We will continue to follow. If surgery is an option then tertiary care may be a better option for him. Present on Admission?: Yes History of Present Illness Requesting Physician: Gilles Marvin DO and Red Pineda DO Attending Physician: Gilles Marvin DO History of Present Illness I have been asked by Dr. Marvin and Dr. Pineda to see this 83-year-old male who presented to the emergency room with a complaint of abdominal pain that began 2 days prior to admission. It was a very dull ache that then resolved. However the next day he developed severe abdominal pain throughout his abdomen. He has regular bowel movements usually but he had not that day. He had no fever or chills. He had some nausea but no vomiting. He never had pain similar to this before. CT scan of the abdomen and pelvis demonstrated a sigmoid volvulus. He underwent a colonoscopy for decompression. Since then the abdominal pain has resolved. He has had multiple previous abdominal procedures. He was not a good historian but felt that the small bowel resection was for a blockage during which ileostomy was performed. That was reversed. Then he has had 2 ventral hernia repairs one with placement of a large piece of mesh. He is to get enemas. He had a repeat x-ray that demonstrated improvement in the colonic dilatation. He has a history of atrial fibrillation and is on Xarelto. Allergies Allergy/AdvReac Type Severity Reaction Status Date / Time No Known Allergies Allergy Unverified 02/11/19 13:36 Home Medications Home Medications Medication Instructions Recorded Confirmed Type aspirin 81 mg chewable tablet 81 mg PO DAILY 02/11/19 03/29/19 History atorvastatin 20 mg tablet 20 mg PO DAILY 02/11/19 03/29/19 History finasteride 5 mg tablet 5 mg PO DAILY 02/11/19 03/29/19 History furosemide 20 mg tablet 20 mg PO DAILY 02/11/19 03/29/19 History iron,carbonyl 65 mg-vitamin C 125 1 tab PO DAILY 02/11/19 03/29/19 History mg tablet,delayed release latanoprost 0.005 % eye drops 1 drops OP HS ml 02/11/19 03/29/19 History lisinopril 5 mg tablet 5 mg PO DAILY 02/11/19 03/29/19 History metoprolol succinate 25 mg capsule 25 mg PO DAILY 02/11/19 03/29/19 History sprinkle, ext. release 24 hr lgghunujqrba-tbruwicv-upycns 1 tab PO DAILY 02/11/19 03/29/19 History rivaroxaban 20 mg tablet 20 mg PO QPM 02/11/19 03/29/19 History tamsulosin 0.4 mg capsule 0.4 mg PO DAILY 02/11/19 03/29/19 History vit 1 cap PO DAILY cap 02/11/19 03/29/19 History C,E,zinc,Yj-kdwaz-1-lutein-zeaxanthin 250 mg-2.5 mg-0.5 mg capsule temazepam 30 mg capsule 30 mg PO DAILY #30 cap 02/12/19 03/29/19 Rx Patient History Medical History (Updated 03/29/19 @ 08:18 by Shahid Cruz MD) History of blood clots HTN (hypertension), benign Sensorineural hearing loss of both ears Surgical History (Updated 03/30/19 @ 07:02 by Eliseo Reyes MD) H/O mitral valve repair History of ankle surgery due to broken ankle History of aortic valve replacement History of back surgery History of left cataract surgery History of right cataract surgery S/P closure of ileostomy S/P repair of ventral hernia X 2 with placement of mesh S/P small bowel resection Family History Mother Heart disease Hypertension Father Hypertension Social History Preferred Language: Thai Communication Ability: Effective Hearing Ability: Hard of Hearing Beliefs That Will Affect Care: None marital status: Single Current Living Situation: Alone current occupational status: retired Other Information That Helps Us Care for You: No Feels Safe at Home: Yes Safety Concerns: Feels Safe At This Time Smoking Status: Never smoker Second Hand Exposure: No ; Hx Alcohol Use: No Hx Substance Use: No Dental Care, Regularly: Yes Seatbelt Use: always Physical Exam Constitutional: no acute distress Neck: Thyroid: normal thyroid Respiratory: normal respiratory effort, lungs clear to auscultation Cardiovascular: Rate/Rhythm: regular rate and regular rhythm Gastrointestinal (Abdomen): Inspection/Auscultation: abdomen normal to inspection; abdomen not distended Percussion/Palpation: abdomen soft; abdomen nontender Lymphatic: no cervical lymphadenopathy Results & Data Vital Signs (Past 12 Hours) Vital Signs Temp Pulse Resp BP Pulse Ox 03/30/19 06:57 36.8 C 64 18 131/89 94 03/30/19 03:11 36.4 C L 69 18 106/61 96 03/29/19 23:05 36.8 C 53 L 18 132/78 96 Laboratory Results WBC 6.29, H&H 13.2 and 41.0, platelet 145,000 sodium 139, potassium 3.9, chloride 105, CO2 30, BUN glucose 115, LFTs normal, troponin I < 0.[address] abd pelvis IV con only CT DOSE: 374.23 mGy.cm CLINICAL HISTORY: Diffuse abdominal pain. TECHNIQUE: The patient was scanned in a dynamic helical fashion during intravenous administration of 92 cc Optiray 320 A dose lowering technique was utilized adhering to the principles of ALARA. COMPARISON STUDY: X-ray study dated 03/29/2019 FINDINGS: The heart is enlarged. There is a 9 mm left lower lobe pulmonary nodule. There is a 3 mm left lower lobe pulmonary nodule. There are subpleural fibrotic/atelectatic changes. There is a 9 mm subpleural right middle lobe opacity. No hepatic masses are visualized. No gallbladder lesions are evident. Splenic masses are visualized. No pancreatic masses are visualized. There is borderline dilatation of the pancreatic duct. No adrenal masses are visualized. There is no hydronephrosis. No solid renal masses are visualized. There is colonic dilatation. There is decompression of the rectum and distal sigmoid. There is a mesenteric swirl sign indicative of a sigmoid volvulus. There is no free intraperitoneal air. There is no pneumatosis. There is no evidence of abdominal aortic aneurysm. There is no significant ascites. There are borderline enlarged aortocaval lymph nodes. There is an indwelling IVC filter. There are postsurgical changes of a ventral hernia repair. No destructive skeletal lesions are visualized. IMPRESSION: 1. 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 2. Nonspecific lower lobe pulmonary nodules. The largest measures 9 mm. 3-6 month follow-up is recommended. XR abdomen min 2V CLINICAL HISTORY: sigmoid volvulus, s/p decompression COMPARISON STUDY: 03/29/2019 5:53 AM FINDINGS: Considerable interval improvement in the appearance of the bowel pattern. No evidence for free air or obstructive change. Persistent air within the small bowel as well as colon diminished from the prior study. Mild residual contrast within a trabeculated bladder. IMPRESSION: Improved exam with no current evidence for significant bowel distention.
[2019-03-30 07:37] LABS: Eosinophils # (auto) 0.18 K/uL (0-0.5); Eosinophils % (auto) 3.8 %; Hemoglobin 11.8 g/dL (14.0-18.0); Immature Granulocytes # (auto) 0.01 K/uL (0.00-0.02); Immature Granulocytes % (auto) 0.2 %; Lymphocytes # (auto) 1.49 K/uL (1.2-3.4); Lymphocytes % (auto) 31.5 %; Mean Corpuscular Hemoglobin 32.6 pg (25-34); Mean Corpuscular Hgb Conc 31.9 g/dL (32-36); Mean Corpuscular Volume 102.2 fL (80-100); Mean Platelet Volume 9.4 fL (7.4-10.4); Monocytes # (auto) 0.49 K/uL (0.11-0.59); Monocytes % (auto) 10.4 %; Neutrophils # (auto) 2.56 K/uL (1.4-6.5); Neutrophils % (auto) 54.1 %; Platelet Count 107 K/uL (130-400); RDW Coefficient of Variation 14.5 % (11.5-14.5); RDW Standard Deviation 54.2 fL (36.4-46.3); Red Blood Count 3.62 M/uL (4.7-6.1); White Blood Count 4.73 K/uL (4.8-10.8)
[2019-03-30 07:45] LABS: INR 1.3 (0.9-1.1); Prothrombin Time 13.2 Seconds (9.0-12.0)
[2019-03-30 08:14] LABS: BUN Creatinine Ratio 15.7 (10-20); Calcium 8.8 mg/dl (8.5-10.1); Creatinine Clr Calc Pharmacy 69.8 ml/min; Est GFR (African American) 95.6; Est GFR (Non-African American) 82.5; Potassium 3.9 mmol/L (3.5-5.1)
[2019-03-30] MEDS: METOPROLOL SUCC 25MG EXT REL TAB PO SCH (08:29)
--- NOTE | 2019-03-30 09:35 | Electrocardiogram Report ---
Test Reason : Blood Pressure : / mmHG Vent. Rate : 053 BPM Atrial Rate : 214 BPM P-R Int : 000 ms QRS Dur : 120 ms QT Int : 534 ms P-R-T Axes : 000 -32 -28 degrees QTc Int : 501 ms Atrial fibrillation with slow ventricular response Left axis deviation Inferior infarct , age undetermined Abnormal ECG No previous ECGs available Confirmed by Steve Carmona ([id number]) on 03/30/2019 9:35:20 AM Referred By: REFERRED SELF Confirmed By:Steve Carmona
--- NOTE | 2019-03-30 10:52 | XRay Report ---
ABDOMEN 2 VIEWS HISTORY: follow up sigmoid volvulus COMPARISON: Abdominal series 03/29/2019. FINDINGS: Cardiomegaly and interstitial thickening at the lung bases persists. There are poststernoto my changes and a mitral valve ring noted. There is an IVC filter identified. Dilated gas-filled large and small bowel are again noted. This is similar to the prior study. The sigmoid colon measures up t o 9 cm in diameter. IMPRESSION: Persistent dilatation of the colon most pronounced at the sigmoid colon consistent with the patient's known sigmoid volvulus. This is similar to the prior studies. ACT 112: Negative or not required by law. Electronically signed by: Sonido Vann M.D. 03/30/2019 10:51 AM
--- NOTE | 2019-03-30 11:14 | Anesthesiology Progress Note ---
Date of Service March 30, 2019 Anesthesia Post Procedure Vital Signs Vital Signs: Temp Pulse Resp BP Pulse Ox 03/30/19 06:57 36.8 C 64 18 131/89 94 03/30/19 03:11 36.4 C L 69 18 106/61 96 03/29/19 23:05 36.8 C 53 L 18 132/78 96 03/29/19 15:28 36.4 C L 44 L 18 125/78 97 03/29/19 12:28 61 115/79 Pain Intensity Abdomen: Pain Intensity: 9 Lower Back: Pain Intensity: 8 Notes Mental Status: alert / awake / arousable and participated in evaluation Patient Amnestic to Procedure: Yes Nausea / Vomiting: adequately controlled Pain: adequately controlled Airway Patency, RR, SpO2: stable & adequate BP & HR: stable & adequate Hydration State: stable & adequate Anesthetic Complications: no major complications apparent
[2019-03-30] MEDS ORDERED: D5W AND 1/2NSS 1,000 ML IV SCH (15:00)
--- NOTE | 2019-03-30 15:33 | Hospitalist Progress Note ---
Date of Service March 30, 2019 Assessment & Plan (1) Sigmoid volvulus: s/p decompression by Dr. Pineda on 03/29 in the morning repeat abdominal x-ray on 03/30 shows recurrent sigmoid volvulus patient feels fine, no abdominal pain, no bloating, no nausea will keep NPO, had some liquids in the morning on 03/30 very complex surgery as he has hernia repair after reversal of ileostomy he has numerous tacks where mesh was placed will need surgical resection at tertiary care Dr. Reyes discussed with colorectal surgery at [place], they agree to evaluate the patient once he is there I discussed with hospitalist at [place], they will accept to surgical floor however, no beds for 24-48 hours discussed this with patient [place] mentioned that if his clinical status changes at all, such as increased abdominal pain, vomiting, that we should call to change his triage status will place on D5 1/2NSS for hydration keep NPO except medications (2) HTN (hypertension), benign: continue Toprol BP up slightly at 150/82 (3) Atrial fibrillation: hold Xarelto (last dose was in evening on 03/28/19) continue metoprolol for rate control HR in the 60s (4) H/O mitral valve repair: safe to hold Xarelto, he takes the Xarelto for afib (5) History of aortic valve replacement: porcine valve had surgery around [id number] Subjective patient felt well this morning, tolerated clears this morning he reported that he would be interested in getting surgery if indicated allowed him to have liquids this morning as plan initially would be outpatient follow up with colorectal surgeon however, KUB this morning showed return of sigmoid volvulus patient without any symptoms, abdomen soft and non-distended with good bowel sounds discussed at length with Dr. Reyes, recommends referral to tertiary care at [place] for surgical opinion discussed with [place], Dr. Lewis will accept the patient to hospitalist service, however, no beds for 24-48 hours discussed with patient and surgeon, this is acceptable will keep patient NPO, give IV fluids continue to hold Xarelto Review of Systems Review of Systems: All systems reviewed & are unremarkable except as noted in HPI & below Respiratory: no cough and no dyspnea Cardiovascular: no chest pain, no syncope and no edema Gastrointestinal: no abdominal pain, no bloating, no nausea, no vomiting, no constipation and no diarrhea/loose stools Genitourinary: no dysuria and no urinary frequency Physical Exam Constitutional: WD/WN, vitals as above Eyes: PERRL, conjunctivae normal, anicteric sclerae ENMT: external ear and nose normal, oropharynx normal Neck: trachea midline, no thyromegaly Respiratory: normal respiratory effort, lungs clear to auscultation Cardiovascular: Rate/Rhythm: regular rate and + irregularly irregular Heart Sounds: normal S1 and normal S2 (artifical sounding); no murmur Vessels: no JVD Extremities: normal capillary refill; no edema Gastrointestinal (Abdomen): normal bowel sounds, soft, nontender, no hepatosplenomegaly Musculoskeletal: no cyanosis or clubbing, extremities motor strength 5/5 Skin: no rashes, warm and dry Neurologic: patellar DTR's 2+ bilat, sensation intact and PERRL, EOMI, accommodation nl, no face palsy, no dysarthria Psychiatric: A+Ox3, euthymic affect Lymphatic: no cervical or axillary lymphadenopathy Results & Data Vital Signs (Past 12 Hours) Vital Signs Temp Pulse Resp BP BP Pulse Ox 03/30/19 15:03 36.7 C 62 16 150/82 H 96 03/30/19 14:35 36.8 C 64 18 131/89 94 03/30/19 06:57 36.8 C 64 18 131/89 94 Laboratory Results Laboratory Results - last 24 hr 03/30/19 03/30/19 03/30/19 07:25 07:25 07:25 WBC 4.73 L RBC 3.62 L Hgb 11.8 L Hct 37.0 L MCV 102.2 H MCH 32.6 MCHC 31.9 L RDW Std Deviation 54.2 H RDW Coeff of Any 14.5 Plt Count 107 L MPV 9.4 Immature Gran % (Auto) 0.2 Neut % (Auto) 54.1 Lymph % (Auto) 31.5 [place] % (Auto) 10.4 Eos % (Auto) 3.8 Baso % (Auto) 0.0 Immature Gran # (Auto) 0.01 Neut # (Auto) 2.56 Lymph # (Auto) 1.49 [place] # (Auto) 0.49 Eos # (Auto) 0.18 Baso # (Auto) 0.00 PT 13.2 H INR 1.3 H Sodium 142 Potassium 3.9 Chloride 108 H Carbon Dioxide 30 Anion Gap 4.0 BUN 13 Creatinine 0.83 Est Cr Clr Drug Dosing 69.8 Est GFR ( Amer) 95.6 Est GFR (Non-Af Amer) 82.5 BUN/Creatinine Ratio 15.7 Glucose 86 Calcium 8.8 Diagnostic Findings ABDOMEN 2 VIEWS HISTORY: follow up sigmoid volvulus COMPARISON: Abdominal series 03/29/2019. FINDINGS: Cardiomegaly and interstitial thickening at the lung bases persists. There are poststernotomy changes and a mitral valve ring noted. There is an IVC filter identified. Dilated gas-filled large and small bowel are again noted. This is similar to the prior study. The sigmoid colon measures up to 9 cm in diameter. IMPRESSION: Persistent dilatation of the colon most pronounced at the sigmoid colon consistent with the patient's known sigmoid volvulus. This is similar to the prior studies. Medications Administered Current Inpatient Medications Acetaminophen (Tylenol) 650 mg PO Q4H PRN PRN Reason: pain/fever Stop: 04/28/19 11:16 Dextrose/Sodium Chloride (D5w And 1/2nss) 1,000 mls @ 80 mls/hr IV .[id number] [facility] Stop: 04/29/19 14:59 Last Admin: 03/30/19 15:40 Dose: 80 mls/hr Documented by: Ioversol (Optiray 320 100ml) 100 ml IV ONCE PRN PRN Reason: Interaction Checking Stop: 04/02/19 06:24 Last Admin: 03/29/19 06:26 Dose: 92 ml Documented by: Latanoprost (Xalatan Oph) 1 drops OPB HS [facility] Stop: 04/28/19 20:59 Last Admin: 03/29/19 20:26 Dose: 1 drops Documented by: Metoprolol Succinate (Toprol Xl) 25 mg PO DAILY [facility] Stop: 04/28/19 11:59 Last Admin: 03/30/19 08:29 Dose: 25 mg Documented by: Ondansetron HCl (Zofran) 4 mg IV Q6H PRN PRN Reason: Nausea Stop: 04/28/19 11:16 PG Care Time/CCT Total # of Minutes Spent Total Time Spent: 45 Total Time Spent with Patient: Total time spent is greater than 50% in coordination of care (as documented) at patient's floor/unit and/or counseling patient:
--- NOTE | 2019-03-30 18:18 | Surgery Progress Note ---
Date of Service March 30, 2019 Assessment & Plan (1) Sigmoid volvulus: Patient with history of sigmoid volvulus. There is some dilation of the colon again today but there is no evidence of peritonitis. Because of his previous surgical history of multiple medical problems I think surgical intervention at a tertiary care facility would be appropriate. We discussed this with colorectal surgery in [place] who have accepted him. There is no need for immediate surgical intervention at this time. Subjective Denies abdominal pain Denies nausea and vomiting Has not had fever or chills Physical Exam Gastrointestinal (Abdomen): Inspection/Auscultation: abdomen normal to inspection; abdomen not distended Percussion/Palpation: abdomen soft; abdomen nontender Results & Data Vital Signs (Past 12 Hours) Vital Signs Temp Pulse Resp BP BP Pulse Ox 03/30/19 15:03 36.7 C 62 16 150/82 H 96 03/30/19 14:35 36.8 C 64 18 131/89 94 03/30/19 06:57 36.8 C 64 18 131/89 94 Laboratory Results 03/30/19 03/30/19 03/30/19 Range/Units 07:25 07:25 07:25 WBC 4.73 L (4.8-10.8) K/uL RBC 3.62 L (4.7-6.1) M/uL Hgb 11.8 L (14.0-18.0) g/dL Hct 37.0 L (42-52) % MCV 102.2 H (80-100) fL MCH 32.6 (25-34) pg MCHC 31.9 L (32-36) g/dL RDW Std Deviation 54.2 H (36.4-46.3) fL RDW Coeff of Any 14.5 (11.5-14.5) % Plt Count 107 L (130-400) K/uL MPV 9.4 (7.4-10.4) fL Immature Gran % (Auto) 0.2 % Neut % (Auto) 54.1 % Lymph % (Auto) 31.5 % [place] % (Auto) 10.4 % Eos % (Auto) 3.8 % Baso % (Auto) 0.0 % Immature Gran # (Auto) 0.01 (0.00-0.02) K/uL Neut # (Auto) 2.56 (1.4-6.5) K/uL Lymph # (Auto) 1.49 (1.2-3.4) K/uL [place] # (Auto) 0.49 (0.11-0.59) K/uL Eos # (Auto) 0.18 (0-0.5) K/uL Baso # (Auto) 0.00 (0-0.2) K/uL PT 13.2 H (9.0-12.0) Seconds INR 1.3 H (0.9-1.1) Sodium 142 (136-145) mmol/L Potassium 3.9 (3.5-5.1) mmol/L Chloride 108 H (98-107) mmol/L Carbon Dioxide 30 (21-32) mmol/L Anion Gap 4.0 (3-11) BUN 13 (7-18) mg/dl Creatinine 0.83 (0.6-1.4) mg/dl Est Cr Clr Drug Dosing 69.8 ml/min Est GFR ( Amer) 95.6 Est GFR (Non-Af Amer) 82.5 BUN/Creatinine Ratio 15.7 (10-20) Glucose 86 (70-99) mg/dl Calcium 8.8 (8.5-10.1) mg/dl Diagnostic Findings ABDOMEN 2 VIEWS HISTORY: follow up sigmoid volvulus COMPARISON: Abdominal series 03/29/2019. FINDINGS: Cardiomegaly and interstitial thickening at the lung bases persists. There are poststernotomy changes and a mitral valve ring noted. There is an IVC filter identified. Dilated gas-filled large and small bowel are again noted. This is similar to the prior study. The sigmoid colon measures up to 9 cm in diameter. IMPRESSION: Persistent dilatation of the colon most pronounced at the sigmoid colon consistent with the patient's known sigmoid volvulus. This is similar to the prior studies.
--- NOTE | 2019-03-30 19:15 | Discharge Summary ---
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 The patient gives a history of having intermittent abdominal pain, would not occur too frequently, and he described it as a gas pain and if he would push on his abdomen the pain would go away. Since 2008, he says that he did not have any serious abdominal issues other than some hernias. Last night he started to have some pain after eating dinner, the pain was diffuse. It did not get better with position change. It was associated with so me nausea. He could not move his bowels last night. The pain kept him up all night and he felt like his abdomen was getting more distended. He called his neighbor to ask her to take him to the ED, she called ambulance that brought him here. In the ED his abdominal film showed dilated colon with no air in colon distally suggesting an obstruction. CT abdomen/pelvis showed sigmoid volvulus. Dr. Pineda took the patient for colonoscopy and decompression immediately this morning. Saw patient after procedure, he was feeling much better. No abdominal pain, no nausea. Discussed with Dr. Reyes, he will likely need surgical intervention to fix the volvulus. Principal Diagnosis Sigmoid volvulus Discharge Exam Constitutional WD/WN, vitals as above Eyes PERRL, conjunctivae normal, anicteric sclerae ENMT external ear and nose normal, oropharynx normal Neck trachea midline, no thyromegaly Respiratory normal respiratory effort, lungs clear to auscultation Cardiovascular Rate/Rhythm: regular rate and + irregularly irregular Heart Sounds: normal S1 and normal S2 (artifical sounding); no murmur Vessels: no JVD Extremities: normal capillary refill; no edema Gastrointestinal (Abdomen) normal bowel sounds, soft, nontender, no hepatosplenomegaly Musculoskeletal no cyanosis or clubbing, extremities motor strength 5/5 Skin no rashes, warm and dry Neurologic patellar DTR's 2+ bilat, sensation intact and PERRL, EOMI, accommodation nl, no face palsy, no dysarthria Psychiatric A+Ox3, euthymic affect Lymphatic no cervical or axillary lymphadenopathy Discharge Data Allergies Allergy/AdvReac Type Severity Reaction Status Date / Time No Known Allergies Allergy Unverified 02/11/19 13:36 Consultations 03/29/19 06:59 ED Decision to Admit Stat 03/29/19 11:17 Consult Case Management - Discharge Planning Routine 03/29/19 12:10 ED Decision to Admit Stat 03/29/19 12:22 Consult General Surgery Routine Procedures Performed Operation Date: 03/29/19 16:30 Actual Procedures p Colonoscopy with Decompression - Red Pineda, DO Ordered Studies 03/29/19 06:08 CT abd pelvis IV con only Stat Hospital Course (1) Sigmoid volvulus: s/p decompression by Dr. Pineda on 03/29 in the morning repeat abdominal x-ray on 03/30 shows recurrent sigmoid volvulus patient feels fine, no abdominal pain, no bloating, no nausea will keep NPO, had some liquids in the morning on 03/30 very complex surgery as he has hernia repair after reversal of ileostomy he has numerous tacks where mesh was placed will need surgical resection at tertiary care Dr. Reyes discussed with colorectal surgery at [facility], they agree to evaluate the patient once he is there transfer to [facility] this evening will place on D5 1/2NSS for hydration keep NPO except medications (2) HTN (hypertension), benign: continue Toprol BP up slightly at 150/82 (3) Atrial fibrillation: hold Xarelto (last dose was in evening on 03/28/19) continue metoprolol for rate control HR in the 60s (4) H/O mitral valve repair: safe to hold Xarelto, he takes the Xarelto for afib (5) History of aortic valve replacement: porcine valve had surgery around 5917-7932 Total Time Total Time Spent Total Time Spent (In Minutes): 45 minutes Total Time Includes: Examination of the Patient, Discharge Planning, Medication Reconciliation and Communication With Other Providers (Dr. Reyes) Discharge Plan Discharge Items Patient Disposition: Transfer Acute Care Hospital Reason For Visit: SIGMOID VOLVULUS Discharge Diagnosis: Sigmoid volvulus Atrial fibrillation h/o Aortic valve replacement Condition on Discharge: Good Goals: evaluation by colorectal surgery Activity: As commented below Activity Comment: up ad marjorie Non-emergency contact: Primary Care Provider Call non-emergency contact if: you have any medication questions Follow-up/Referrals: Jaclyn Hitchcock MD [Primary Care Provider] - Diet: Regular Diet Comment: keep patient NPO Addtl Attending Provider Instructions: transfer to [facility] for colorectal surgery eval for sigmoid volvulus keep patient NPO can stop fluids while being transported continue to HOLD Xarelto Pending Studies at Discharge: No Stand-Alone Forms: My [facility] Skilled Items Patient informed of condition?: Yes DNR: No Discharge Level of Care: Other Communicable Disease: No Discharge Prognosis: Stable Lines: Peripheral IV Urinary Catheter: No Medications and DC Order Prescriptions: Continued latanoprost 0.005 % drops 1 drops OP HS RF: 0 Xarelto 20 mg tablet 20 mg PO QPM RF: 0 atorvastatin 20 mg tablet 20 mg PO DAILY RF: 0 lisinopril 5 mg tablet 5 mg PO DAILY RF: 0 metoprolol succinate 25 mg capsule,sprinkle,ER 24hr 25 mg PO DAILY RF: 0 furosemide 20 mg tablet 20 mg PO DAILY RF: 0 finasteride 5 mg tablet 5 mg PO DAILY RF: 0 tamsulosin [Flomax] 0.4 mg capsule 0.4 mg PO DAILY RF: 0 aspirin [Leslie Chewable Aspirin] 81 mg tablet,chewable 81 mg PO DAILY RF: 0 vit C,E,Zn,Za--kzr-zeax 250-2.5-0.5 mg capsule 1 cap PO DAILY RF: 0 mcndceowdbmk-sgisaefd-nwkaur tablet 1 tab PO DAILY RF: 0 Vitron-C 65 mg iron- 125 mg tablet,delayed release (DR/EC) 1 tab PO DAILY RF: 0 temazepam 30 mg capsule 30 mg PO DAILY Qty: 30 RF: 5 Discharge Orders: Discharge Order (Routine); Ordered 03/30/19 Ordered By: Gilles Marvin Admission Data Admit Date/Time: 03/29/19 08:57 Attending Provider: Gilles Marvin Admit Provider: Gilles Marvin Primary Care Provider: Jaclyn Hitchcock Other Providers: Red Pineda ; Pito Hennessy ; Rae Lucia ; Gregg Fontanez ; Tee Benaivdez ; Tiago Kern ; Adriane Bolanos ; Yon Khan ; Jigar David ; Gilles Marvin ; Aby Prajapati ; Yuli Salinas ; Ashley Summers ; Dirk Domínguez ; Oriana Boland ; Eldon Allison ; Bola Ferrell ; Rae Loredo ; Osmani Brandon ; Vanessa Alejandro ; Skip Daiz ; Adonis Montoya ; Tee Roldan ; Ellen Whipple ; Dixie Payne ; Gold Guillen ; Mika Balderrama ; Eunice Hall ; Seth Dickson ; Vel Rai ; Radha Braun ; Chucky Rouse ; Eliseo Reyes Other Interventions: Discharge Summary Assessment (RN) Last Done: 03/30/19 14:35
[2019-03-30] MEDS: LATANOPROST 0.005% OP SOLN 2.5 ML BTL OPB SCH (20:08)
== END 2019-03-30 21:11 | disposition short-term general hospital (02) | DRG 344 ==
LOC: ED 05:36 → 3W 07:53 → ED 07:53 → 3W 08:57

== ENCOUNTER 2022-08-28 07:44 | Inpatient (IN) ==
--- NOTE | 2022-08-16 11:20 | Anesthesiology Consultation ---
Date of Service August 16, 2022 Assessment & Plan (1) Encounter for pre-operative examination: - type and screen: Robert with blood bank advised that nothing further is needed from PAT or patient for this, advised labs will need repeated the DOS and that patient will need brought to OR 1 hour prior to usual time. Marilynn with OR made aware. - pt expressed understanding both legs would be operated on, I advised he further discuss with Dr. Azul's office. I also called the office and relayed this information, Yomaira advised she would relay the information to Gaby and Dr. Azul and they will reach out to the patient and will call our office/the OR if the booking needs changed. Chart Review Chart Review: Acceptable Risk for Surgery and Patient seen in Pre Admission Testing Teaching & Discussion Pre-Anesthesia Teaching/Discussion Notes: Instructed NPO after midnight before surgery, except medications with 15 cc of water. Medication instructions provided according to the PAT guidelines. History Surgery Operation Date: 08/28/22 09:45 Proposed Procedures p Endovascular Repair Right Popliteal Artery Aneurysm - Dante Azul MD Height/Weight Height: 5 ft 9 in Weight: 70.4 kg Allergies Allergy/AdvReac Type Severity Reaction Status Date / Time No Known Allergies Allergy Verified 08/16/22 11:16 Medications Home Medications Medication Instructions Recorded Confirmed Last Taken vit C 250 mg-vit E 90 mg-zinc 40 1 tab PO HS 03/21/21 08/16/22 07/24/22 mg-copper 1 bc-svuebj-kzmmry capsule (PreserVision AREDS-2) bghhpdgogvvw-hmonnojl-hqczek tablet 1 tab PO HS 08/27/21 08/16/22 07/25/22 rivaroxaban 20 mg tablet (Xarelto) 20 mg PO HS #90 tabs 10/16/21 08/16/22 07/24/22 atorvastatin 20 mg tablet 20 mg PO HS #90 tabs 10/18/21 08/16/22 07/24/22 lisinopril 5 mg tablet 5 mg PO HS #90 tabs 05/17/22 08/16/22 07/24/22 trazodone 50 mg tablet 50 mg PO HS #30 tabs 05/17/22 08/16/22 07/24/22 finasteride 5 mg tablet 5 mg PO HS #30 tabs 06/17/22 08/16/2207/24/23 tamsulosin 0.4 mg capsule (Flomax) 0.4 mg PO HS #30 caps 07/16/22 08/16/22 07/24/22 colestipol 1 gram tablet 1 g PO DAILY PRN loose stools 08/16/22 08/16/22 Unknown furosemide 20 mg tablet 20 mg PO QPM 08/16/22 08/16/22 Unknown Past Medical History Medical History (Updated 08/16/22 @ 11:56 by Cassy Solis PA-C) 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 following with Dr Azul. Glaucoma History of blood clots pt unsure about this? History of COVID-2020, resolved, no symptoms, tested at assisted [facility] and "test was positive" HTN (hypertension), benign controlled, stable per pt Sensorineural hearing loss of both ears Patient denies h/o stroke, seizures, heart attack, heart failure, DM, or blood transfusions. Exercise / Class Metabolic Activity III < 4 Walking/Shop/Light housework (denies chest discomfort or shortness of breath with usual activities, ambulates with cane) Past Family History Family History Mother Heart disease Hypertension Father Hypertension Denies family history of Ovarian cancer Prostate cancer Myocardial infarction Breast cancer Colorectal cancer Past Surgical History Surgical History (Updated 08/16/22 @ 11:57 by Cassy Solis PA-C) H/[place] History of aortic valve replacement All cardiac surgeries done in [place]. Follows w/JULITO Baker History of back surgery age 32 History of left cataract surgery History of open reduction and internal fixation (ORIF) procedure ankle-pt unsure which side History of right cataract surgery Hx of colonoscopy S/P closure of ileostomy S/P colon resection 04/01/19 Dr. Andrzej Bellamy- Open sigmoidectomy with colocolostomy, flexible sigmoidoscopy, and transversus abdominus plane (TAP) block S/P repair of ventral hernia X 2 with placement of mesh S/P small bowel resection Past Anesthesia History No Hx of Anesthesia Complications and No Family Hx of Anesthesia Complications History of PONV No Hx of PONV and No Hx of Motion Sickness Social History Smoking Status: Never smoker Do You Dip or Chew Tobacco: No Hx Alcohol Use: Yes Alcohol type: wine alcohol intake frequency: holidays/special occasions only Hx Substance Use: No substance use type: does not use Review of Systems Chronic nonproductive cough, denies change or worsening. Patient denies chest pain, shortness of breath, dyspnea on exertion, snoring, witnessed apneas, reflux, fever, chills, wheezing, or palpitations. Physical Exam Vital Signs Vitals BP 138/95 P 54 TEMP 97.6 SP02 98% on RA RESP 18 Physical Full cervical extension range of motion without pain TMD 3.5 finger breadths Mallampati Score 2 Dentition: veneers, denies chipped or loose teeth, caps/crowns, implants or bridges Lungs: normal respiratory effort. Good air movement, clear throughout to auscultation, no adventitious breath sounds Cardiac: regular rate and rhythm, no murmurs noted Carotid arteries: negative bruit bilat Lab Results Anesthesia Preop Results Results Anesthesia Widget: WBC 5.13 K/ul (4.8-10.8) 07/25/22 Hgb 13.6 g/dl (14.0-18.0) L 07/25/22 Hct 41.5 % (42.0-52.0) L 07/25/22 Plt 126 K/uL (130-400) L 07/25/22 Na 140 mmol/L (136-145) 07/25/22 K 3.9 mmol/L (3.5-5.1) 07/25/22 Cl 101 mmol/L (98-107) 07/25/22 CO2 33 mmol/L (21-32) H 07/25/22 BUN 25 mg/dl (6-23) H 07/25/22 Creat 0.99 mg/dl (0.6-1.4) 07/25/22 Glucose Level 68 mg/dl (70-99(Fasting)) L 07/25/22 PT 17.1 Seconds (9.0-12.0) H 08/16/22 PTT 36.1 Seconds (21.0-31.0) H 08/16/22 INR 1.6 (0.9-1.1) H 08/16/22 Blood Type A Negative 08/16/22 Antibody Screen POSITIVE A 08/16/22 Testing Electrocardiogram Date: 07/25/22 Afib, rate 76 bpm RBBB Chest X-Ray Date: 08/16/22 No acute chest disease Echocardiogram Date: 05/24/22 EF 60-65% Mild cLVH LA moderately dilated RA severely dilated Bioprosthetic aortic valve well seated and functions normally, gradient is normal Mild aortic regurgitation Moderate mitral regurgitation Moderate tricuspid regurgitation RVSP elevated at 30-40 mmHg Mild aortic root dilatation Moderately dilated ascending aorta Stress Test Date: 10/03/17 Pharmacologic Normal Cardiac Catheterization Date: 02/05/17 Left main: no stenosis LCX: less than 10% narrowing LAD: less than 20% plaque RCA: less than 20% plaque Other Testing Aorta w/ runoff CTA 08/09/22 1. Fusiform aneurysmal dilatation of the right popliteal artery and distal right superficial femoral artery, measuring 2.6 cm in caliber. Aneurysmal dilatation extends for approximately 5.5 cm. 2. Mild aneurysmal dilatation of the aorta at the level of the diaphragmatic hiatus, measuring 3.2 cm. Mid to distal abdominal aorta normal in caliber. Significant tortuosity of the abdominal aorta, as above. Mild atherosclerotic plaque. 3. Three vessel runoff bilaterally. Multifocal stenoses within the right calf vessels. 4. Dilatation of the ascending aorta, partially imaged on this exam. Visualized portions measure up to 4.9 cm which is similar to chest CT of August 17, 2021. RLE venous doppler 07/25/22 1. No DVT within the right lower extremity. 2. Incidental note is made of a 2.6 cm right popliteal artery fusiform aneurysm. Carotid doppler 12/04/17 < 50% stenosis ICAs bilat COVID-19 Risk Screen Screening Information COVID-19 Screen Date: 08/16/22 Exposure 21 Days Family/Household +COVID Last 21 Days: No Exposure 10 Days Any COVID Exposure Last 10 Days: No Symptoms Last 10 Days Experienced COVID Sx Last 10 Days: No + COVID 0-90 Days COVID + in Last 0-90 Days: No
--- NOTE | 2022-08-16 11:51 | PAT Medication Instructions ---
Medication Instructions Date of Service August 16, 2022 Home Medications Medication Instructions Recorded rivaroxaban 20 mg tablet (Xarelto) 20 mg PO HS #90 tabs 10/16/21 atorvastatin 20 mg tablet 20 mg PO HS #90 tabs 10/18/21 lisinopril 5 mg tablet 5 mg PO HS #90 tabs 05/17/22 trazodone 50 mg tablet 50 mg PO HS #30 tabs 05/17/22 finasteride 5 mg tablet 5 mg PO HS #30 tabs 06/17/22 tamsulosin 0.4 mg capsule (Flomax) 0.4 mg PO HS #30 caps 07/16/22 vit C 250 mg-vit E 90 mg-zinc 40 mg-copper 1 in-tqcflz-tdrsoz capsule (PreserVision AREDS-2) 1 tab PO HS jbmvlxcqtcju-gmsdyofs-rfhshc tablet 1 tab PO HS rivaroxaban 20 mg tablet (Xarelto) 20 mg PO HS atorvastatin 20 mg tablet 20 mg PO HS lisinopril 5 mg tablet 5 mg PO HS trazodone 50 mg tablet 50 mg PO HS finasteride 5 mg tablet 5 mg PO HS tamsulosin 0.4 mg capsule (Flomax) 0.4 mg PO HS colestipol 1 gram tablet 1 g PO DAILY PRN furosemide 20 mg tablet 20 mg PO QPM ASK your prescriber and surgeon rivaroxaban 20 mg tablet (Xarelto) 20 mg PO HS STOP taking 2 weeks before surgery (or as soon as possible if surgery is within 2 weeks) vit C 250 mg-vit E 90 mg-zinc 40 mg-copper 1 eb-ialbjm-xfvyiw capsule (PreserVision AREDS-2) 1 tab PO HS STOP taking 48 hours before surgery colestipol 1 gram tablet 1 g PO DAILY PRN Take evening before surgery gltufimywipp-tdwjxvwo-esmpmf tablet 1 tab PO HS atorvastatin 20 mg tablet 20 mg PO HS lisinopril 5 mg tablet 5 mg PO HS trazodone 50 mg tablet 50 mg PO HS finasteride 5 mg tablet 5 mg PO HS tamsulosin 0.4 mg capsule (Flomax) 0.4 mg PO HS furosemide 20 mg tablet 20 mg PO QPM Other Notes NOTHING TO EAT OR DRINK AFTER MIDNIGHT. If you have any questions please call us at [phone] or [phone] or [phone] or [phone]
[~2022-08-28 07:44] MED LIST: LACTATED RINGER'S 1,000 ML IV SCH; ceFAZolin 2000MG 2,000 MG/15 ML SYR IV SCH
--- NOTE | 2022-08-28 08:05 | History & Physical Bridge Note ---
Date of Service August 28, 2022 History & Physical Bridge Note I have examined the patient, reviewed the History & Physical and in the interval since the performance of the History & Physical I have noted the following changes of clinical significance: no changes noted
--- NOTE | 2022-08-28 08:05 | History & Physical Report ---
Date of Service August 28, 2022 History of Present Illness Primary Care Provider: Jaclyn Hitchcock MD Name: AMY JOHNSON Patient Number: [id number] : 1935 Date of Service: 08/01/2022 Chief Complaint: _Popliteal artery aneurysm of the right lower extremity HPI: _I had the pleasure of seeing Amy today for evaluation of his popliteal artery aneurysm. As you know he is a 87-year-old gentleman who has a history of venous insufficiency and ulcerations in the medial aspect of his right ankle. He had increased leg swelling and pain and was sent to emergency room by his family doctor. 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 He does complain of bilateral leg pain but not associated with walking. He has had aortic and mitral valves replaced in the past. 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 He denies any rest pain in the toes and the foot of the right lower extremity. He is treating his right leg ulceration with local care. He denies any symptoms of cerebrovascular insufficiency. Diagnostic Results His CT angio showed 4.9 cm ascending thoracic aorta. He also has a 3.4 cm suprarenal aortic aneurysm. His right popliteal artery has a 2.6 cm aneurysm. Past medical history is positive for heart disease with aortic and mitral valve surgeries in the past. Social history she has never smoked. He does not drink alcohol. Current Home Meds: (Last Updated 08/01 10:27) atorvastatin (atorvastatin 20 mg oral tablet) 20 mg PO qhs finasteride (finasteride 5 mg oral tablet) 5 mg PO Daily Women of childbearing age should not touch or handle broken tablets. - Lucille Escobar 08/01 10:27 furosemide (furosemide 20 mg oral tablet) 20 mg PO Daily lisinopril (lisinopril 5 mg oral tablet) 5 mg PO Daily multivitamin with minerals (ICaps AREDS 2 oral capsule) 1 tab po daily multivitamin with minerals (Centrum Silver oral tablet) 1 tab PO Daily rivaroxaban (Xarelto 20 mg oral tablet) 20 mg PO qPM tamSULOsin (tamsulosin 0.4 mg oral capsule) 0.4 mg PO Daily traZODone (traZODone 50 mg oral tablet) 50 mg PO qhs Past Medical History: Problems: Ascending aortic aneurysm AAA (abdominal aortic aneurysm) Popliteal aneurysm Vitals: Last Updated 08/01/22 10:41 Date Temp BP Location Pulse RR SpO2 Pain 08/01/22 0 08/01/22 126/90 Right Arm 08/01/22 130/84 Left Arm 65 87 Vital Signs are the last 3 documented. No Orthostatic Data Available Height and Weight: Last Updated 08/01/22 10:36 Date BMI Wt(kg) Wt(lb) Method Ht(cm) (ft-in) Method 08/01/22 67.9 149 Standing Scale Heights and Weights are the last 3 documented. Physical Exam: _The patient is awake alert and oriented x3. Is no apparent distress. His blood pressure is 130/84 in the left and 126/90 on the right. His radials carotids and superficial temporal is a +2 bilaterally. I cannot appreciate carotid bruits. Lungs were clear and heart had a regular rate and rhythm. Abdominal exam is benign. No abnormal dilatation of the aorta was appr eciated. His femorals are +2 and not widened. His popliteals are +2 bilaterally. The right popliteal does have a widened pulse approximately 2-1/2 3 cm in size. Pedal pulses are +1 bilaterally. Lower extremities has a small ulceration present over the medial malleolus on the right leg with mild granulation tissue present. The lower extremities do show signs of venous insufficiency with stasis changes present. 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 He also has a 3.4 cm suprarenal aortic aneurysm as well as a 4.9 cm ascending aortic aneurysm. ASSESSMENT: _Right popliteal artery aneurysm PLAN: _ Patient is scheduled for an endovascular repair of his right popliteal artery aneuryusm. I have discussed the risks options and benefits of the procedure with the patient. The patient understands the risks options and benefits and agrees to the procedure. Thank you very much for letting us participate in the care of this patient. Sincerely, Vincent Azul MD Signature Line Electronic Signature on File Electronically Reviewed/Signed by: Dante Azul MD Author Signature Dt/Tm:08/01/2022 11:45 AM Air Tank Assembler Riaz Bello [facility] [place], [address] [place] [address] EJS Result Type: Outpt Note Date of Service: August 01, 2022 11:33 EDT Authorization Status: Final Author or Import Date: MD Azul Eugene J on August 01, 2022 11:45 EDT Verified By: MD Azul Eugene J on August 01, 2022 11:45 EDT Encounter info: [id number], [place] [address], Clinic, 08/01/2022 - 08/01/2022 Allergies Allergy/AdvReac Type Severity Reaction Status Date / Time No Known Allergies Allergy Verified 08/16/22 11:16 Home Medications Medication Instructions Recorded Confirmed Type vit C 250 mg-vit E 90 mg-zinc 40 1 tab PO HS 03/21/21 08/16/22 History mg-copper 1 av-wvdvfk-cflwme capsule (PreserVision AREDS-2) lsqvptdpodbv-gvgzlagp-uobffp tablet 1 tab PO HS 08/27/21 08/16/22 History rivaroxaban 20 mg tablet (Xarelto) 20 mg PO HS #90 tabs 10/16/21 08/16/22 Rx atorvastatin 20 mg tablet 20 mg PO HS #90 tabs 10/18/21 08/16/22 Rx lisinopril 5 mg tablet 5 mg PO HS #90 tabs 05/17/22 08/16/22 Rx trazodone 50 mg tablet 50 mg PO HS #30 tabs 05/17/22 08/16/22 Rx finasteride 5 mg tablet 5 mg PO HS #30 tabs 06/17/22 08/16/22 Rx tamsulosin 0.4 mg capsule (Flomax) 0.4 mg PO HS #30 caps 07/16/22 08/16/22 Rx colestipol 1 gram tablet 1 g PO DAILY PRN loose stools 08/16/22 08/16/22 History furosemide 20 mg tablet 20 mg PO QPM 08/16/22 08/16/22 History Past Med/Surg History Medical History (Updated 08/16/22 @ 11:56 by Cassy Solis PA-C) 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 following with Dr Azul. Glaucoma History of blood clots pt unsure about this? History of COVID-19 2020, resolved, no symptoms, [facility]" HTN (hypertension), benign controlled, stable per pt Sensorineural hearing loss of both ears Surgical History (Updated 08/16/22 @ 11:57 by Cassy Solis PA-C) [place] [facility] History of aortic valve replacement [place] cardiac [place] Follows w/JULITO Baker History of back surgery age 32 History of left cataract surgery History of open reduction and internal fixation (ORIF) procedure ankle-pt unsure which side History of right cataract surgery Hx of colonoscopy S/P closure of ileostomy S/P colon resection 04/01/19 Dr. Andrzej Bellamy- Open sigmoidectomy with colocolostomy, flexible sigmoidoscopy, and transversus abdominus plane (TAP) block S/P repair of ventral hernia X 2 with placement of mesh S/P small bowel resection Family History Mother Heart disease Hypertension Father Hypertension Denies family history of Ovarian cancer Prostate cancer Myocardial infarction Breast cancer Colorectal cancer Social History Smoking Status: Never smoker Second Hand Exposure: No; Do You Dip or Chew Tobacco: No; Tobacco Cessation Education Requested by Patient: No Hx Alcohol Use: Yes Alcohol type: wine Alcohol Intake Frequency: Monthly or Less Alcohol Intake Frequency Comment: 2 drinks per week Hx Substance Use: No Preferred Language: Armenian Communication Ability: Effective 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
[2022-08-28] MEDS ORDERED: fentaNYL citrate PF 100 MCG/2 ML VIAL ONE (11:41)
[2022-08-28] MEDS ORDERED: PROMETHAZINE HCL 12.5 MG in SODIUM CHLORIDE 0.9% 50 ML IV PRN (14:49)
[2022-08-28] MEDS ORDERED: NALOXONE HCL 0.4 MG/1 ML VIAL/CARP IV PRN (14:49)
[2022-08-28] MEDS ORDERED: fentaNYL citrate PF 100 MCG/2 ML VIAL IV PRN (14:49)
[2022-08-28] MEDS ORDERED: ONDANSETRON INJ 2 MG/ML 2 ML VIAL IV PRN (14:49)
[2022-08-28] MEDS ORDERED: LABETALOL HCL IV 5 MG/ML 20ML IV PRN (14:49)
[2022-08-28] MEDS ORDERED: ATROPINE SULFATE 0.1 MG/ML 10ML SYR IV PRN (14:49)
[2022-08-28] MEDS ORDERED: ePHEDrine sulfate 50 MG/ML AMP IV PRN (14:49)
[2022-08-28] MEDS ORDERED: FLUMAZENIL 0.1 MG/1 ML 10 ML VIAL IV PRN (14:49)
[2022-08-28] MEDS ORDERED: PROPOFOL IV EMULSION 10 MG/ML 20 ML VIAL IV ONE (15:03)
[2022-08-28] MEDS ORDERED: LIDOCAINE 2% 2 ML VIAL/AMP(20MG/ML) INFIL ONE (15:03)
[2022-08-28] MEDS ORDERED: LIDOCAINE 2% 20 MG/ML 5 ML SYR IV ONE (15:03)
[2022-08-28] MEDS ORDERED: ePHEDrine sulfate 50 MG/ML SYR ONE (15:04)
[2022-08-28] MEDS ORDERED: PHENYLEPHRINE HCL 10 MG/ML VIAL ONE (15:04)
[2022-08-28] MEDS ORDERED: ONDANSETRON INJ 2 MG/ML 2 ML VIAL ONE (15:04)
[2022-08-28] MEDS ORDERED: VISIPAQUE IV PRN (15:46)
[2022-08-28] MEDS ORDERED: PROTAMINE SULFATE 10 MG/ML 5 ML VIAL IV ONE (15:52)
--- NOTE | 2022-08-28 16:01 | Procedure Note ---
Angiogram Post Procedure Fluoroscopy Time (minutes): 5.8 Radiation (mGy): 28 Contrast: 35 Post Operative Report Pre & Post Diagnosis Operation Date: 08/28/22 11:00 Pre-Op Diagnosis: Right Popliteal Artery Aneurysm Post-Op Diagnosis: Right Popliteal Artery Aneurysm I identified the patient and participated in the time-out.: Yes Procedure Operation Date: 08/28/22 11:00 Actual Procedures p Angiogram Right Lower Extremity, Mechanical Closure of Bilateral Femoral Arteries, Endovascular repair of right popliteal artery aneurysm.(Bilateral) - Dante Azul MD Surgeon Dante Azul MD Systems Security Analyst none Estimated Blood Loss 20 Findings Consistent with Post-Op Diagnosis Specimens none Anesthesia Type General Complications none Disposition Accompanied Patient To Recovery: No Disposition: Recovery Room Indications This is a 87-year-old gentleman who was found to have a 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 CT angiogram confirmed an isolated popliteal artery of the right side. Endovascular pair is recommended. I have discussed the risks options and benefits of the procedure with the patient. The patient understands the risks options and benefits and agrees to the procedure. Description of Procedure The patient was taken the operating room and placed in supine position. Both groins were then prepped and draped in a sterile manner after general anesthesia was accomplished. A timeout was performed and the patient was identified. Due to the tortuosity of the iliac arteries it was thought that we should snare the wire and bring the 12 [place] sheath over to the right side from the left on a rail. We therefore punctured the right groin. This was done with ultrasound guidance. The artery was patent and large with minimal plaque on ultrasound. Once punctured we placed a guidewire followed by a 6 [place] sheath. We then did an ultrasound of the left groin. Again this artery was large and with mild plaque. Under ultrasound guidance the left common femoral artery was punctured. The Manta depth finder was placed and found to be 3.5 from the skin. We then inserted an 8 [place] sheath. 035 wire was passed up the right side followed by a 25 mm snare. 035 wire was passed up the left. This was snared from with the snare from the right side and a 035 wire pulled out to the right groin sheath. We then inserted a quick cross the left side to the right. Once this was in 1 sheath and out the other guidewire was removed. We replaced this with an Amplatz wire. Again using the rail the 8 [place] sheath was removed from the left side and a 12 [place] dry seal was inserted. This passed over to the right external iliac. The tortuosity of the iliacs was eliminated with the Amplatzer wire. Once the 12 [place] was in place we then used an 035 stiff Glidewire and passed this down through the superficial femoral artery down through the popliteal and the anterior tibial artery. Arteriography was then performed which showed the location of the popliteal artery aneurysm even though that did not fill the sac there was irregularity present at that area. The distal landing zone will be just proximal to the anterior tibial artery. A 10 x 15 would cover the entire aneurysm and have nice proximal distal landing zones. We then inserted a 10 x 15 Viabahn. And this was placed proximal to the takeoff of the anterior tibial. It was deployed without difficulty. We then inserted an 9 x 2 [place] balloon and inflated to 14 gabriela which gave us a 9.6 cm balloon. The Viabahn was ballooned in its entirety from 1 end to the other. Completion angio showed good flow through the Viabahn with a nice smooth artery above and below. The balloon was then removed. We then pulled the 12 [place] dry seal back to the left side. Once it was done in the external iliac we removed the Amplatz wire. 035 guidewire was then reinserted through the sheath into the aorta. The 12 [place] sheath was removed and the puncture site closed using the Manta device. Adequate hemostasis was seen on the left side. We then placed the wire and the 6 [place] sheath on the right and used a Star closure device however the closure device did not get a good seal. Pressure was then applied after hemostasis was obtained. Pressure dressing was placed on the right groin.The patient left the operation room in satisfactory condition and tolerated the procedure well. All needle and sponge counts were correct at the end of the procedure. I attest to the content of the Intraoperative Record and any orders documented therein. Any exceptions are noted below.
[2022-08-28] MEDS ORDERED: hydrALAZINE HCL 20 MG/ML VIAL IV STA (16:22)
[2022-08-28] MEDS ORDERED: hydrALAZINE HCL 20 MG/ML VIAL ONE (16:22)
--- NOTE | 2022-08-28 17:01 | Anesthesiology Progress Note ---
Date of Service August 28, 2022 Anesthesia Post Procedure Vital Signs Vital Signs: Temp Pulse Pulse Resp BP BP Pulse Ox 08/28/22 16:40 70 25 H 145/107 H 98 08/28/22 16:30 79 22 154/107 H 98 08/28/22 16:20 71 22 171/115 H 92 08/28/22 16:14 36.1 C L 66 16 164/118 H 98 08/28/22 08:57 36.5 C 67 18 154/112 H 146/108 H 97 O2 Del Method O2 Flow Rate 08/28/22 16:40 Oxymask 5 08/28/22 16:30 Oxymask 5 08/28/22 16:20 Oxymask 7 08/28/22 16:14 Oxymask 7 08/28/22 08:57 Room Air Transfer of Care Handoff Completed per policy Notes Mental Status: alert / awake / arousable Patient Amnestic to Procedure: Yes Nausea / Vomiting: adequately controlled Pain: adequately controlled Airway Patency, RR, SpO2: stable & adequate BP & HR: stable & adequate Hydration State: stable & adequate Anesthetic Complications: no major complications apparent
[2022-08-28] MEDS ORDERED: oxyCODONE/ACETAMINOPHEN 5mg/325mg TAB PO PRN (17:43)
[2022-08-28] MEDS ORDERED: CLOPIDOGREL BISULFATE 300 MG TAB PO STA (17:43)
[2022-08-28] MEDS ORDERED: COLESTIPOL HCL 1 GM TAB PO PRN (17:43)
[2022-08-28] MEDS ORDERED: D5W AND 1/2NSS 1,000 ML IV SCH (17:43)
[2022-08-28 19:43] LABS: Creatinine Clr Calc Pharmacy 66.1 ml/min; Est GFR (African American) 94.9 ml/min; Est GFR (Non-African American) 81.9 ml/min
[2022-08-28] MEDS: ATORVASTATIN 20 MG TAB PO SCH (20:52)
[2022-08-28] MEDS: traZODone HCL 50 MG TAB PO SCH (20:52)
[2022-08-28] MEDS: CEROVITE ADV FORMULA TAB PO SCH (20:52)
[2022-08-28] MEDS: lisinopril 5 MG TAB PO SCH (20:53)
[2022-08-28] MEDS: TAMSULOSIN HCL 0.4 MG CAP PO SCH (20:53)
[2022-08-28] MEDS: RIVAROXABAN 20 MG TAB PO SCH (20:53)
[2022-08-28] MEDS: FINASTERIDE 5 MG TAB PO SCH (20:53)
[2022-08-28] MEDS ORDERED: NON-FORMULARY MEDICATION (Vit C,E-Zn-Coppr-Lutein-Zeaxan [Preservision Areds-2] 250-90-40- PO SCH (21:00)
--- NOTE | 2022-08-28 22:14 | Critical Care Consultation ---
Date of Consultation August 28, 2022 Assessment & Plan (1) Aneurysm of right popliteal artery: (2) Anticoagulant long-term use: (3) Atrial fibrillation with slow ventricular response: (4) S/P mitral valve repair: (5) S/P AVR (aortic valve replacement): Plan Monitor in ICU. HDS. Continue blood thinners and BP control per Dr. Azul. Thanks. Please call with questions. History of Present Illness Reason for Consultation: Post op monitoring s/p Right Popliteal Artery Aneurysmrepair Attending Physician: Dante Azul MD History of Present Illness 87 yo presenting for elective percutaneous repair of r popliteal artery aneurysm. Hx includes prior mitral valve and aortic valve repair. Currently st able in PACU without complaints. Transferring to ICU for monitoring. D/w anesthesiologist. No significant issues intraop or post op. Allergies Allergy/AdvReac Type Severity Reaction Status Date / Time No Known Allergies Allergy Verified 08/28/22 08:41 Home Medications Medication Instructions Recorded Confirmed Type vit C 250 mg-vit E 90 mg-zinc 40 1 tab PO HS 03/21/21 08/28/22 History mg-copper 1 wu-uxzomh-jfgdmh capsule (PreserVision AREDS-2) lvobijfyzxdq-peolycfz-xopdha tablet 1 tab PO HS 08/27/21 08/28/22 History rivaroxaban 20 mg tablet (Xarelto) 20 mg PO HS #90 tabs 10/16/21 08/28/22 Rx atorvastatin 20 mg tablet 20 mg PO HS #90 tabs 10/18/21 08/28/22 Rx lisinopril 5 mg tablet 5 mg PO HS #90 tabs 05/17/22 08/28/22 Rx trazodone 50 mg tablet 50 mg PO HS #30 tabs 05/17/22 08/28/22 Rx tamsulosin 0.4 mg capsule (Flomax) 0.4 mg PO HS #30 caps 07/16/22 08/28/22 Rx colestipol 1 gram tablet (Colestid) 1 g PO DAILY PRN loose stools 08/16/22 08/28/22 History furosemide 20 mg tablet 20 mg PO QAM 08/16/22 08/28/22 History finasteride 5 mg tablet (Proscar) 5 mg PO HS 08/28/22 08/28/22 History Patient History Medical History 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 following with Dr Azul. Glaucoma History of blood clots pt unsure about this? History of COVID-19 2020, resolved, no symptoms, tested at assisted living fac[facility] and "test was positive" HTN (hypertension), benign controlled, stable per pt Sensorineural hearing loss of both ears Surgical History H[place] [facility] [place] [facility] History of aortic valve replacement [place] Follows w/JULITO Baker History of back surgery age 32 History of left cataract surgery History of open reduction and internal fixation (ORIF) procedure ankle-pt unsure which side History of right cataract surgery Hx of colonoscopy S/P closure of ileostomy S/P colon resection 04/01/19 Dr. Andrzej Bellamy- Open sigmoidectomy with colocolostomy, flexible sigmoidoscopy, and transversus abdominus plane (TAP) block S/P repair of ventral hernia X 2 with placement of mesh S/P small bowel resection Family History Mother Heart disease Hypertension Father Hypertension Denies family history of Ovarian cancer Prostate cancer Myocardial infarction Breast cancer Colorectal cancer Social History Smoking Status: Never smoker Second Hand Exposure: No; Do You Dip or Chew Tobacco: No; Tobacco Cessation Education Requested by Patient: No Hx Alcohol Use: Yes Alcohol type: wine Alcohol Intake Frequency: Monthly or Less Alcohol Intake Frequency Comment: 2 drinks per week Hx Substance Use: No Preferred Language: Ukrainian Communication Ability: Effective Hearing Ability: Hard of Hearing Lock Installer Required: No Beliefs That Will Affect Care: None marital status: Single Current Living Situation: Alone and Other Current Living Situation Comment: [facility] current occupational status: retired How many Children do You have: 0 Other Information That Helps Us Care for You: No Feels Safe at Home: Yes Safety Concerns: Feels Safe At This Time Childhood Exposure to Second-Hand Smoke: No Diet: regular caffeine: No Dental Care, Regularly: Yes Physical Activity Frequency: Does not Exercise Seatbelt Use: always Sunscreen Use: No Assistive Devices: Cane and Glasses Review of Systems Review of Systems: All systems reviewed & are unremarkable except as noted in HPI & below Physical Exam Constitutional: WD/WN, vitals as above Respiratory: normal respiratory effort, lungs clear to auscultation Cardiovascular: RRR, no murmur, no edema Gastrointestinal (Abdomen): normal bowel sounds, soft, nontender, no hepatosplenomegaly Neurologic: PERRL, EOMI, accommodation nl, no face palsy, no dysarthria Psychiatric: A+Ox3, euthymic affect Results & Data Results & Data Vital Signs (Past 12 Hours) Vital Signs Temp Pulse Pulse Resp BP BP Pulse Ox 08/28/22 20:01 82 95 08/28/22 20:01 160/124 H 08/28/22 20:00 83 18 97 08/28/22 19:45 74 20 94 08/28/22 19:45 148/96 H 08/28/22 19:30 84 16 90 08/28/22 19:30 148/111 H 08/28/22 19:15 82 21 95 08/28/22 19:15 138/108 H 08/28/22 19:00 69 18 100 08/28/22 19:00 150/106 H 08/28/22 18:46 69 15 94 08/28/22 18:46 147/114 H 08/28/22 18:45 70 15 92 08/28/22 18:30 72 21 97 08/28/22 18:30 145/108 H 08/28/22 18:16 71 18 95 08/28/22 18:16 139/111 H 08/28/22 18:15 73 25 H 94 08/28/22 18:00 77 16 94 08/28/22 18:00 133/102 H 08/28/22 17:50 78 21 95 08/28/22 17:45 68 22 96 08/28/22 17:45 136/97 08/28/22 17:40 73 22 96 08/28/22 17:33 61 18 08/28/22 17:33 138/103 H 08/28/22 17:10 36.4 C L 70 21 148/97 H 96 08/28/22 17:00 36.4 C L 61 24 129/92 98 08/28/22 16:50 36.4 C L 75 22 142/104 H 98 08/28/22 16:40 70 25 H 145/107 H 98 08/28/22 16:30 79 22 154/107 H 98 08/28/22 16:20 71 22 171/115 H 92 08/28/22 16:14 36.1 C L 66 16 164/118 H 98 O2 Del Method O2 Flow Rate 08/28/22 20:01 08/28/22 20:01 08/28/22 20:00 Room Air 08/28/22 19:45 08/28/22 19:45 08/28/22 19:30 08/28/22 19:30 08/28/22 19:15 08/28/22 19:15 08/28/22 19:00 08/28/22 19:00 08/28/22 18:46 08/28/22 18:46 08/28/22 18:45 08/28/22 18:30 08/28/22 18:30 08/28/22 18:16 08/28/22 18:16 08/28/22 18:15 08/28/22 18:00 08/28/22 18:00 08/28/22 17:50 08/28/22 17:45 08/28/22 17:45 08/28/22 17:40 08/28/22 17:33 08/28/22 17:33 08/28/22 17:10 Room Air 08/28/22 17:00 Oxymask 2 08/28/22 16:50 Oxymask 3 08/28/22 16:40 Oxymask 5 08/28/22 16:30 Oxymask 5 08/28/22 16:20 Oxymask 7 08/28/22 16:14 Oxymask 7 [place] [address] IN/OBS CONSULT LVL 2,35M Patient Type New History Problem Focused Exam Detailed Medical Decision Making Straight Forward Diagnoses Aneurysm of right popliteal artery I72.4 Anticoagulant long-term use Z79.01 Atrial fibrillation with slow ventricular response I48.91 S/P mitral valve repair Z98.890 S/P AVR (aortic valve replacement) Z95.2
[2022-08-28] MEDS: ceFAZolin 2000MG 2,000 MG/15 ML SYR IV SCH (22:37)
[2022-08-29] MEDS: ceFAZolin 2000MG 2,000 MG/15 ML SYR IV SCH (05:31)
[2022-08-29] MEDS: CLOPIDOGREL BISULFATE 75 MG TAB PO SCH (08:44)
--- NOTE | 2022-08-29 08:55 | Communication Note ---
Date of Service: August 29, 2022 Patient has permanent a fib. Being treated by his operational review sergeant and PCP with rivaroxaban and lisiopril.
--- NOTE | 2022-08-29 09:12 | Pulmonology Progress Note ---
Date of Service August 29, 2022 Assessment & Plan (1) Aneurysm of right popliteal artery: (2) Anticoagulant long-term use: (3) Atrial fibrillation with slow ventricular response: (4) S/P mitral valve repair: (5) S/P AVR (aortic valve replacement): Plan Status post right popliteal artery aneurysm repair. Remains hemodynamically stable. Anticoagulation per vascular surgery. Patient safe to transfer out of ICU. Thanks. Please call with questions. Admission and Anticipated Discharge Date Admission Date: August 28, 2022 Subjective No issues overnight or this morning. Patient denies complaint. Review of Systems Review of Systems: All systems reviewed & are unremarkable except as noted in HPI & below Physical Exam Constitutional: WD/WN, vitals as above Respiratory: normal respiratory effort, lungs clear to auscultation Cardiovascular: RRR, no murmur, no edema Gastrointestinal (Abdomen): normal bowel sounds, soft, nontender, no hepatosplenomegaly Neurologic: PERRL, EOMI, accommodation nl, no face palsy, no dysarthria Psychiatric: A+Ox3, euthymic affect Results & Data Results & Data Vital Signs (Past 12 Hours) Vital Signs Temp Pulse Resp BP Pulse Ox Pulse Ox O2 Del Method 08/29/22 08:00 95 Room Air 08/29/22 08:00 72 08/29/22 04:00 36.6 C 08/29/22 00:00 36.6 C 08/29/22 05:45 124/82 08/29/22 05:45 63 24 96 08/29/22 05:35 124/81 08/29/22 05:35 58 L 15 96 08/29/22 05:15 70 20 94 08/29/22 05:15 129/82 08/29/22 05:00 64 22 95 08/29/22 05:00 130/83 08/29/22 04:46 123/96 08/29/22 04:46 60 13 95 08/29/22 04:30 116/79 08/29/22 04:30 65 10 L 95 08/29/22 04:15 67 6 L 95 08/29/22 04:15 117/78 08/29/22 04:00 56 L 0 L 97 08/29/22 04:00 112/77 08/29/22 03:45 118/93 08/29/22 03:45 67 16 96 08/29/22 03:30 118/78 08/29/22 03:30 64 17 92 08/29/22 03:15 119/89 08/29/22 03:15 67 12 95 08/29/22 03:00 71 21 91 08/29/22 03:00 135/89 08/29/22 02:45 57 L 16 92 08/29/22 02:45 144/85 H 08/29/22 02:30 65 17 89 L 08/29/22 02:30 141/96 H 08/29/22 02:15 68 1 L 96 08/29/22 02:15 115/74 08/29/22 02:00 61 13 95 08/29/22 02:00 121/84 08/29/22 01:45 62 22 89 L 08/29/22 01:45 134/87 08/29/22 01:30 65 0 L 96 08/29/22 01:30 122/82 08/29/22 01:15 72 15 92 08/29/22 01:15 143/101 H 08/29/22 01:00 66 22 90 08/29/22 01:00 131/94 08/29/22 00:45 65 15 92 08/29/22 00:45 141/108 H 08/29/22 00:30 66 4 L 94 08/29/22 00:30 129/86 08/29/22 00:15 67 21 92 08/29/22 00:15 152/118 H 08/29/22 00:00 76 24 88 L 08/29/22 00:00 149/118 H 08/28/22 23:45 65 3 L 94 08/28/22 23:45 149/99 H 08/28/22 23:30 65 12 97 08/28/22 23:30 148/103 H 08/28/22 23:15 163/108 H 08/28/22 23:15 77 12 93 08/28/22 23:00 74 10 L 89 L 08/28/22 23:00 177/107 H 08/28/22 22:45 166/107 H 08/28/22 22:45 66 13 94 08/28/22 22:30 67 16 93 08/28/22 22:30 158/120 H 08/29/22 00:00 77 08/28/22 22:15 80 15 94 08/28/22 22:15 166/127 H 08/28/22 22:00 76 31 H 95 08/28/22 22:00 160/128 H 08/28/22 21:47 69 6 L 96 08/28/22 21:47 151/118 H 08/28/22 21:30 78 13 96 08/28/22 21:30 156/115 H 08/28/22 21:16 69 16 92 08/28/22 21:16 171/115 H PG Care Time/CCT Total # of Minutes Spent Total Time Spent with Patient: Total time spent is greater than 50% in coordination of care (as documented) at patient's floor/unit and/or counseling patient: Coding Level of Care Code 95491 SUB INP/OBS CARE 04/17MIN Diagnoses Aneurysm of right popliteal artery I72.4 Anticoagulant long-term use Z79.01 Atrial fibrillation with slow ventricular response I48.91 S/P mitral valve repair Z98.890 S/P AVR (aortic valve replacement) Z95.2
[2022-08-29] MEDS: FUROSEMIDE 20 MG TAB PO SCH (12:02)
[2022-08-29] MEDS ORDERED: FUROSEMIDE INJ 20 MG/2 ML VIAL IV ONE (14:15)
--- NOTE | 2022-08-29 14:23 | Surgery Progress Note ---
Date of Service August 29, 2022 Assessment & Plan (1) Aneurysm of right popliteal artery: Plan: He is doing well postoperatively from his popliteal artery aneurysm repair by endovascular approach. He does have bilateral leg swelling which is not new and unchanged. He does have palpable pulses distally. This point we will transfer him to the floor and increase his diuretic to treat his mild hypertension. (2) HTN (hypertension), benign: Plan: He is mildly hypertensive today postoperatively. We will give him another dose of Lasix. (3) Atrial fibrillation: Plan: This patient has permanent atrial fibrillation requiring anticoagulation with Xarelto and he is on lisinopril. Admission and Anticipated Discharge Date Admission Date: August 28, 2022 Subjective Patient is awake and alert. He ambulated in the javier earlier today and is sitting up in a chair for most of the day. He has no complaints of foot pain. Physical Exam Constitutional: WD/WN, vitals as above Respiratory: normal respiratory effort; no respiratory distress Cardiovascular: Rate/Rhythm: regular rate and regular rhythm Vessels: posterior tibial pulses present and dorsalis pedis pulses present Musculoskeletal: no cyanosis or clubbing, extremities motor strength 5/5 Hip: + surgical incision (Puncture sites are dry and clean) Neurologic: CN's II-XI intact bilaterally and moves all extremities Psychiatric: Orientation: alert and oriented x 3 Results & Data Vital Signs (Past 12 Hours) Vital Signs Temp Pulse Resp BP Pulse Ox Pulse Ox O2 Del Method 08/29/22 13:30 61 17 96 08/29/22 13:19 158/116 H 08/29/22 13:19 71 23 95 08/29/22 13:00 63 17 97 08/29/22 13:00 163/110 H 08/29/22 12:30 107 H 14 95 08/29/22 12:00 81 14 97 08/29/22 12:00 158/106 H 08/29/22 11:30 76 22 98 08/29/22 11:23 152/100 H 08/29/22 11:23 78 25 H 95 08/29/22 11:00 61 16 97 08/29/22 10:30 63 20 08/29/22 10:00 72 19 95 08/29/22 10:00 163/101 H 08/29/22 09:30 63 19 96 08/29/22 09:16 142/99 H 08/29/22 09:16 70 25 H 95 08/29/22 08:00 Room Air 08/29/22 09:10 58 L 16 142/99 H 95 08/29/22 09:00 62 21 96 08/29/22 09:00 141/106 H 08/29/22 08:50 60 18 95 08/29/22 08:40 59 L 23 95 08/29/22 08:30 22 08/29/22 08:20 60 18 93 08/29/22 08:10 66 26 H 140/90 96 08/29/22 08:01 64 20 95 08/29/22 08:01 149/103 H 08/29/22 08:00 74 18 93 08/29/22 07:50 66 28 H 91 08/29/22 07:40 64 22 96 08/29/22 07:31 135/92 08/29/22 07:31 59 L 14 95 08/29/22 07:30 62 17 95 08/29/22 07:20 63 25 H 90 08/29/22 07:10 63 19 93 08/29/22 07:01 114/85 08/29/22 07:01 60 19 96 08/29/22 07:00 58 L 18 96 08/29/22 06:50 52 L 19 97 08/29/22 06:40 62 25 H 96 08/29/22 06:30 60 18 96 08/29/22 06:30 114/81 08/29/22 06:20 60 17 98 08/29/22 06:16 56 L 23 95 08/29/22 06:16 130/75 08/29/22 06:10 56 L 16 97 08/29/22 06:00 58 L 28 H 93 08/29/22 06:00 123/84 08/29/22 05:50 58 L 18 97 08/29/22 08:00 95 08/29/22 08:00 72 08/29/22 04:00 36.6 C 08/29/22 05:45 124/82 08/29/22 05:45 63 24 96 08/29/22 05:35 124/81 08/29/22 05:35 58 L 15 96 08/29/22 05:15 70 20 94 08/29/22 05:15 129/82 08/29/22 05:00 64 22 95 08/29/22 05:00 130/83 08/29/22 04:46 123/96 08/29/22 04:46 60 13 95 08/29/22 04:30 116/79 08/29/22 04:30 65 10 L 95 08/29/22 04:15 67 6 L 95 08/29/22 04:15 117/78 08/29/22 04:00 56 L 0 L 97 08/29/22 04:00 112/77 08/29/22 03:45 118/93 08/29/22 03:45 67 16 96 08/29/22 03:30 118/78 08/29/22 03:30 64 17 92 08/29/22 03:15 119/89 08/29/22 03:15 67 12 95 08/29/22 03:00 71 21 91 08/29/22 03:00 135/89 08/29/22 02:45 57 L 16 92 08/29/22 02:45 144/85 H 08/29/22 02:30 65 17 89 L 08/29/22 02:30 141/96 H O2 Del Method 08/29/22 13:30 08/29/22 13:19 08/29/22 13:19 08/29/22 13:00 08/29/22 13:00 08/29/22 12:30 08/29/22 12:00 08/29/22 12:00 08/29/22 11:30 08/29/22 11:23 08/29/22 11:23 08/29/22 11:00 08/29/22 10:30 08/29/22 10:00 08/29/22 10:00 08/29/22 09:30 08/29/22 09:16 08/29/22 09:16 08/29/22 08:00 08/29/22 09:10 08/29/22 09:00 08/29/22 09:00 08/29/22 08:50 08/29/22 08:40 08/29/22 08:30 08/29/22 08:20 08/29/22 08:10 08/29/22 08:01 08/29/22 08:01 08/29/22 08:00 08/29/22 07:50 08/29/22 07:40 08/29/22 07:31 08/29/22 07:31 08/29/22 07:30 08/29/22 07:20 08/29/22 07:10 08/29/22 07:01 08/29/22 07:01 08/29/22 07:00 08/29/22 06:50 08/29/22 06:40 08/29/22 06:30 08/29/22 06:30 08/29/22 06:20 08/29/22 06:16 08/29/22 06:16 08/29/22 06:10 08/29/22 06:00 08/29/22 06:00 08/29/22 05:50 08/29/22 08:00 Room Air 08/29/22 08:00 08/29/22 04:00 08/29/22 05:45 08/29/22 05:45 08/29/22 05:35 08/29/22 05:35 08/29/22 05:15 08/29/22 05:15 08/29/22 05:00 08/29/22 05:00 08/29/22 04:46 08/29/22 04:46 08/29/22 04:30 08/29/22 04:30 08/29/22 04:15 08/29/22 04:15 08/29/22 04:00 08/29/22 04:00 08/29/22 03:45 08/29/22 03:45 08/29/22 03:30 08/29/22 03:30 08/29/22 03:15 08/29/22 03:15 08/29/22 03:00 08/29/22 03:00 08/29/22 02:45 08/29/22 02:45 08/29/22 02:30 08/29/22 02:30 (3) Atrial fibrillation Atrial fibrillation type: permanent Qualified Code(s): I48.21 - Permanent atrial fibrillation
[2022-08-29] MEDS: RIVAROXABAN 20 MG TAB PO SCH (17:52)
[2022-08-29] MEDS: lisinopril 5 MG TAB PO SCH (20:33)
[2022-08-29] MEDS: CEROVITE ADV FORMULA TAB PO SCH (20:33)
[2022-08-29] MEDS: ATORVASTATIN 20 MG TAB PO SCH (20:33)
[2022-08-29] MEDS: FINASTERIDE 5 MG TAB PO SCH (20:33)
[2022-08-29] MEDS: traZODone HCL 50 MG TAB PO SCH (20:33)
[2022-08-29] MEDS: TAMSULOSIN HCL 0.4 MG CAP PO SCH (20:33)
[2022-08-30] MEDS: CLOPIDOGREL BISULFATE 75 MG TAB PO SCH (08:15)
--- NOTE | 2022-08-30 08:56 | Surgery Progress Note ---
Date of Service August 30, 2022 Assessment & Plan (1) Aneurysm of right popliteal artery: Plan: POD #2, doing well. Will d/c to [facility] today, with recommendations to f/u with wound clinic regarding his R lower leg ulcerations. (2) HTN (hypertension), benign: Plan: Improved (3) Atrial fibrillation: Plan: on formerly [facility] Admission and Anticipated Discharge Date Admission Date: August 28, 2022 Subjective 87 yo m POD #2 after RLE endovascular pop aneurysm repair, doing well post op. Pt denies any significant concerns or complaints presently. States his edema is improved. Review of Systems Review of Systems: All systems reviewed & are unremarkable except as noted in HPI & below Physical Exam Constitutional: WD/WN, vitals as above Respiratory: normal respiratory effort; no respiratory distress Cardiovascular: Rate/Rhythm: regular rate and regular rhythm Vessels: posterior tibial pulses present and dorsalis pedis pulses present Musculoskeletal: no cyanosis or clubbing, extremities motor strength 5/5 Hip: + surgical incision (Puncture sites are dry and clean) Neurologic: CN's II-XI intact bilaterally and moves all extremities Psychiatric: Orientation: alert and oriented x 3 Results & Data Vital Signs (Past 12 Hours) Vital Signs Temp Pulse Resp BP Pulse Ox Pulse Ox O2 Del Method 08/30/22 07:40 36.6 C 85 16 136/96 92 Room Air 08/29/22 23:59 95 O2 Del Method 08/30/22 07:40 08/29/22 23:59 Room Air (3) Atrial fibrillation Atrial fibrillation type: permanent Qualified Code(s): I48.21 - Permanent atrial fibrillation
--- NOTE | 2022-08-30 08:57 | Discharge Summary ---
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 As you know he is a 87-year-old gentleman who has a history of venous insufficiency and ulcerations in the medial aspect of his right ankle. He had increased leg swelling and pain and was sent to emergency room by his family doctor. 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 He does complain of bilateral leg pain but not associated with walking. He has had aortic and mitral valves replaced in the past. 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 He denies any rest pain in the toes and the foot of the right lower extremity. He is treating his right leg ulceration with local care. He denies any symptoms of cerebrovascular insufficiency. Diagnostic Results His CT angio showed 4.9 cm ascending thoracic aorta. He also has a 3.4 cm suprarenal aortic aneurysm. His right popliteal artery has a 2.6 cm aneurysm. Past medical history is positive for heart disease with aortic and mitral valve surgeries in the past. Social history she has never smoked. He does not drink alcohol. Current Home Meds: (Last Updated 08/01 10:27) atorvastatin (atorvastatin 20 mg oral tablet) 20 mg PO qhs finasteride (finasteride 5 mg oral tablet) 5 mg PO Daily Women of childbearing age should not touch or handle broken tablets. Tameka Escobar 08/01 10:27 furosemide (furosemide 20 mg oral tablet) 20 mg PO Daily lisinopril (lisinopril 5 mg oral tablet) 5 mg PO Daily multivitamin with minerals (ICaps AREDS 2 oral capsule) 1 tab po daily multivitamin with minerals (Centrum Silver oral tablet) 1 tab PO Daily rivaroxaban (Xarelto 20 mg oral tablet) 20 mg PO qPM tamSULOsin (tamsulosin 0.4 mg oral capsule) 0.4 mg PO Daily traZODone (traZODone 50 mg oral tablet) 50 mg PO qhs Past Medical History: Problems: Ascending aortic aneurysm AAA (abdominal aortic aneurysm) Popliteal aneurysm Vitals: Last Updated 08/01/22 10:41 Date Temp BP Location Pulse RR SpO2 Pain 08/01/22 0 08/01/22 126/90 Right Arm 08/01/22 130/84 Left Arm 65 87 Vital Signs are the last 3 documented. No Orthostatic Data Available Height and Weight: Last Updated 08/01/22 10:36 Date BMI Wt(kg) Wt(lb) Method Ht(cm) (ft-in) Method 08/01/22 67.9 149 Standing Scale Heights and Weights are the last 3 documented. Physical Exam: _The patient is awake alert and oriented x3. Is no apparent distress. His blood pressure is 130/84 in the left and 126/90 on the right. His radials carotids and superficial temporal is a +2 bilaterally. I cannot appreciate carotid bruits. Lungs were clear and heart had a regular rate and rhythm. Abdominal exam is benign. No abnormal dilatation of the aorta was appreciated. His femorals are +2 and not widened. His popliteals are +2 bilaterally. The right popliteal does have a widened pulse approximately 2-1/2 3 cm in size. Pedal pulses are +1 bilaterally. Lower extremities has a small ulceration present over the medial malleolus on the right leg with mild granulation tissue present. The lower extremities do show signs of venous insufficiency with stasis changes present. 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 He also has a 3.4 cm suprarenal aortic aneurysm as well as a 4.9 cm ascending aortic aneurysm. ASSESSMENT: _Right popliteal artery aneurysm PLAN: _ Patient is scheduled for an endovascular repair of his right popliteal artery aneuryusm. I have discussed the risks options and benefits of the procedure with the patient. The patient understands the risks options and benefits and agrees to the procedure. Thank you very much for letting us participate in the care of this patient. Sincerely, Vnicent Azul MD Signature Line Electronic Signature on File Electronically Reviewed/Signed by: Dante Azul MD Author Signature Dt/Tm:08/01/2022 11:45 AM [facility], [address] Result Type: Outpt Note Date of Service: August 01, 2022 11:33 EDT Authorization Status: Final Author or Import Date: MD Azul Eugene J on August 01, 2022 11:45 EDT Verified By: MD Azul Eugene J on August 01, 2022 11:45 EDT Encounter info: [id number], [place] [id number], Clinic, 08/01/2022 - 08/01/2022 Admission Exam Per Admitting Provider Physical Exam: _The patient is awake alert and oriented x3. Is no apparent distress. His blood pressure is 130/84 in the left and 126/90 on the right. His radials carotids and superficial temporal is a +2 bilaterally. I cannot appreciate carotid bruits. Lungs were clear and heart had a regular rate and rhythm. Abdominal exam is benign. No abnormal dilatation of the aorta was appreciated. His femorals are +2 and not widened. His popliteals are +2 bilaterally. The right popliteal does have a widened pulse approximately 2-1/2 3 cm in size. Pedal pulses are +1 bilaterally. Lower extremities has a small ulceration present over the medial malleolus on the right leg with mild granulation tissue present. The lower extremities do show signs of venous insufficiency with stasis changes present. 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 He also has a 3.4 cm suprarenal aortic aneurysm as well as a 4.9 cm ascending aortic aneurysm. Principal Diagnosis 1. s/p endovascular repair R pop aneurysm 2. R pop aneurysm 3. HTN 4. A fib Discharge Exam Constitutional WD/WN, vitals as above Respiratory normal respiratory effort; no respiratory distress Cardiovascular Rate/Rhythm: regular rate and regular rhythm Vessels: posterior tibial pulses present and dorsalis pedis pulses present Musculoskeletal no cyanosis or clubbing, extremities motor strength 5/5 Hip: + surgical incision (Puncture sites are dry and clean) Neurologic CN's II-XI intact bilaterally and moves all extremities Psychiatric Orientation: alert and oriented x 3 Discharge Data Allergies Allergy/AdvReac Type Severity Reaction Status Date / Time No Known Allergies Allergy Verified 08/28/22 08:41 Consultations 08/28/22 17:43 Consult Waste Disposal Attendant Routine Procedures Performed Operation Date: 08/28/22 11:00 Actual Procedures p Angiogram Right Lower Extremity, Mechanical Closure of Bilateral Femoral Arteries, Stenting of right popliteal artery.(Bilateral) - Dante Azul MD Ordered Studies 08/28/22 07:08 EV angio LE RT Routine US EV guide vascular access Routine Hospital Course (1) Aneurysm of right popliteal artery: POD #2, doing well. Will d/c to [facility] today, with recommendations to f/u with wound clinic regarding his R lower leg ulcerations. (2) HTN (hypertension), benign: Improved (3) Atrial fibrillation: on xarelto Total Time Total Time Spent Total Time Spent (In Minutes): 0 Discharge Plan Discharge Items Patient Disposition: Transfer [facility] Reason For Visit: Right Popliteal Artery Aneurysm Discharge Diagnosis: 1. s/p endovascular repair of Right popliteal artery aneurysm 2. R popliteal art aneurysm Activity: Per Instructions section Non-emergency contact: Primary Care Provider and Surgeon Call non-emergency contact if: you have any medication questions, your pain is not controlled, your pain is concerning for you, you have a fever, your wound has increased redness and your wound has increased drainage Follow-up/Referrals: Miriam Fontanez CRNP [Nurse Practitioner] - (Follow up with [facility] within 2 weeks for R lower leg wounds) Jaclyn Hitchcock MD [Primary Care Provider] - (Follow up with your PCP within 2 weeks) Dante Azul MD [Physician] - (Follow up with Dr Azul or Camila Roblero PA-C, within 2 weeks. ) Diet: Heart Healthy Addtl Attending Provider Instructions: SPECIAL CARE INSTRUCTIONS: Medications: * Continue to take your medications as directed. Follow up with [facility] for RLE wounds. Please change dressing daily using aquacel, 4x4, and kerlix until follow up with wound clinic. Incision/Puncture Site Care: * You will have an incision or puncture in each of your groins. Liquid glue will be used to seal your incisions/puncture site. This will lift off as the incisions/puncture sites heal. * If Liquid glue is not used, there will be small dressings covering your incisions. After you get home, you may remove the dressings and shower - allowing the warm soapy water to run over it. * Be sure to dry the sites well and keep them dry. * DO NOT SOAK IN A TUB/POOL/etc. UNTIL ALL SURGICAL SITES ARE HEALED. DO NOT REMOVE THE GLUE UNTIL THE INCISIONS HEAL. Restrictions: * Limit yourself to medical intern activity for the first week. * You may walk and go up and down steps. * Avoid excessive bending or movement at the level of the incisions or punctures. Risks and Possible Complications: * Infection/Drainage/Bleeding - Drainage or bleeding from the incisions/puncture site should be minimal. If you have excessive bleeding or drainage, call our office ([phone]) right away. * Pain/Numbness - You may experience some mild pain or soreness at your incision sites. You may also have some numbness around the incisions or into the insides of your thighs. Bruising is normal and should resolve within 2 weeks. * Changes in Appetite or Bowel Habits - Mostly related to anesthesia and pain medication, some patients have reported decreased appetite and/or problems with constipation. These symptoms usually improve over a few weeks. Remembering to take an yetc-odn-uwvqkrg stool softener, as directed, will help you to avoid constipation. Call our office and seek emergent treatment if you develop: * Fever or chills * Have a temperature greater than 101 degrees F * Any redness or purulent drainage from your incisions or punctures * Severe abdominal, chest or back pain SKIN IRRITATION: * You may experience some redness and/or swelling in the area where radiation was administered. If any skin irritation occurs, please contact your family physician. You will be receiving a call from the Vascular Surgery Nurse after you are discharged. FOLLOW UP VISIT: It is important for you to keep your follow up appointments with your medical provider. Keep any scheduled doctor appointments. Pending Studies at Discharge: No Stand-Alone Forms: My [facility] Skilled Items Patient informed of condition?: Yes DNR: No Discharge Level of Care: Skilled Communicable Disease: No Discharge Prognosis: Stable Lines: None Urinary Catheter: No Medications and DC Order Prescriptions: New clopidogrel 75 mg Tablet 75 mg PO QAM Qty: 90 3RF Continued Xarelto 20 mg tablet 20 mg PO HS Qty: 90 3RF atorvastatin 20 mg tablet 20 mg PO HS Qty: 90 3RF lisinopril 5 mg tablet 5 mg PO HS Qty: 90 3RF trazodone 50 mg tablet 50 mg PO HS Qty: 30 5RF Rx Instructions: PER PT "ONLY TAKE THIS MED FOR SLEEP". tamsulosin [Flomax] 0.4 mg capsule 0.4 mg PO HS Qty: 30 5RF PreserVision AREDS-2 250-90-40-1 mg Capsule 1 tab PO HS [id number]-[id number] Tablet 1 tab PO HS furosemide 20 mg tablet 20 mg PO QAM Rx Instructions: takes at lunch colestipol [Colestid] 1 gram tablet 1 g PO DAILY PRN (Reason: loose stools) Rx Instructions: DID NOT BRING THIS MED WITH HIM, UNSURE IF STILL TAKING. TAKE 1 TABLET BY MOUTH ONCE OR TWICE A DAY BY OTHER MEDICATIONS BY 2 HOURS. finasteride [Proscar] 5 mg tablet 5 mg PO HS Admission Data Admit Date/Time: 08/28/22 08:05 Attending Provider: Dante Azul Admit Provider: Dante Azul Primary Care Provider: Jaclyn Hitchcock Other Providers: He Funez [place] ; Rishabh Lancaster ; Satya James ; Josemanuel Mclaughlin ; Amandeep Hill ; Josué Lechuga ; Jerzy Gillette ; Winsome Arechiga ; Yevgeniy Haile ; Stephanie Mccarthy
[2022-08-30] MEDS: FUROSEMIDE 20 MG TAB PO SCH (12:39)
== END 2022-08-30 16:15 | disposition home or self-care (01) | DRG 253 ==
LOC: ASU 07:44 → 1E 08:05 → 3W 08-29 17:46

== ENCOUNTER 2022-09-25 13:59 | Inpatient (IN) ==
--- NOTE | 2022-09-25 14:46 | XRay Report ---
XR chest 1V portable HISTORY: weakness COMPARISON: Chest 09/09/2022. FINDINGS: There are poststernotomy changes and a cardiac valve prosthesis again noted. The heart maki ins mildly enlarged. This mildly tortuous thoracic aorta. The lungs are hyperexpanded with mild apica l predominant emphysematous changes. No pneumothorax. No pleural effusion. Interstitial thickening at the lung bases remains unchanged and is likely chronic. Otherwise, no new focal lung consolidations to suggest a pneumonia. No evidence for pulmonary edema. An IVC filter is partially visualized. IMPRESSION: No significant change compared to the prior study. No acute process. ACT 112: Negative or not required by law. Electronically signed by: Sonido Vann M.D. 09/25/2022 2:45 PM
[2022-09-25 15:25] LABS: Basophils # (auto) 0.01 K/uL (0-0.2); Basophils % (auto) 0.2 %; Eosinophils # (auto) 0.11 K/uL (0-0.50); Eosinophils % (auto) 2.4 %; Hematocrit (blood only) 37.1 % (42.0-52.0); Hemoglobin 12.5 g/dl (14.0-18.0); Immature Granulocytes # (auto) 0.01 K/uL (0.01-0.20); Immature Granulocytes % (auto) 0.2 %; Lymphocytes # (auto) 1.23 K/uL (1.2-3.4); Lymphocytes % (auto) 27.4 %; Mean Corpuscular Hemoglobin 33.6 pg (25.0-34.0); Mean Corpuscular Hgb Conc 33.7 g/dL (32.0-36.0); Mean Corpuscular Volume 99.7 fL (80.0-100.0); Mean Platelet Volume 10.3 fL (9.4-12.4); Monocytes # (auto) 0.49 K/uL (0.11-0.59); Monocytes % (auto) 10.9 %; Neutrophils # (auto) 2.64 K/uL (1.40-6.50); Neutrophils % (auto) 58.9 %; Platelet Count 152 K/uL (130-400); RDW Coefficient of Variation 14.6 % (11.5-14.5); RDW Standard Deviation 53.2 fL (36.4-46.3); Red Blood Count 3.72 M/uL (4.70-6.10); White Blood Count 4.49 K/ul (4.8-10.8)
[2022-09-25 15:41] LABS: Albumin Globulin Ratio 1.2 (0.9-2); Albumin Level 3.3 gm/dl (3.4-5.0); BUN Creatinine Ratio 23.9 (10-20); Bilirubin,Total 0.8 mg/dl (0.2-1.0); Calcium 8.6 mg/dl (8.6-10.3); Creatinine Clr Calc Pharmacy 54.7 ml/min; Est GFR (African American) 87.6 ml/min; Est GFR (Non-African American) 75.6 ml/min; Globulin 2.7 gm/dl (2.5-4.0); Magnesium 1.9 mg/dl (1.7-2.4); Potassium 4.6 mmol/L (3.5-5.1)
[2022-09-25] MEDS ORDERED: OPTIRAY 320 125ml IV ONE (15:50)
--- NOTE | 2022-09-25 16:08 | CT Scan Report ---
CT angio head wo/w CLINICAL HISTORY: double vision, fall COMPARISON STUDY: Head CT March 21, 2021. TECHNIQUE: Unenhanced and arterial phase images of the head were obtained. Intravenous injection of 1 00 cc of Optiray 320 IV was uneventful. Sagittal and coronal reconstructions were viewed as well as m aximal intensity projections on an independent 3-D workstation. Automated exposure control was utiliz for the study. A dose lowering technique was utilized adhering to the principles of ALARA. FINDINGS: No acute intracranial hemorrhage, midline shift or mass effect is present. Ventricular syst em is stable. Basal cisterns are patent. There are no extra-axial collections. White matter hypodensi ties are similar to prior study and favor small vessel disease. There are no findings to suggest acut e dural sinus thrombosis or acute territorial infarct. Moderate atrophy is noted. There is no acute c alvarial fracture. The bilateral M1, M2, A1 and A2 segments are patent. 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 No saccular aneurysms are ident ified within the head. There is a large right posterior communicating artery. No central vessel occlu kel is identified. IMPRESSION: 1. No acute intracranial findings. 2. No central vessel occlusion. No saccular intracranial aneurysm. 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 ACT 112: Negative or not required by law. Electronically signed by: Jose Le M.D. 09/25/2022 4:07 PM
--- NOTE | 2022-09-25 16:14 | CT Scan Report ---
CT ANGIOGRAPHY OF THE NECK WITH CONTRAST CLINICAL HISTORY: double vision, fall COMPARISON STUDY: No previous studies for comparison. Technique: CT angiography of the carotid and vertebral arteries was obtained using Optiray and 3D rec onstruction on an independent workstation. NASCET criteria was utilized. Automated exposure control was utilized for the study. A dose lowering technique was utilized adhering to the principles of ALA RA. Findings: No acute cervical spine fracture is identified. There is no cervical lymphadenopathy. The b ilateral common carotid, cervical internal carotid and vertebral arteries are patent. There is minima l plaque within the proximal left internal carotid artery. No stenosis within the major vessels of th e neck is noted. There is no dissection. Linear densities at the carotid bifurcations are symmetric a nd likely artifactual. Right vertebral artery is dominant. IMPRESSION: No stenosis or dissection within the bilateral common carotid, cervical internal carotid or vertebral arteries. ACT 112: Negative or not required by law. Electronically signed by: Jose Le M.D. 09/25/2022 4:12 PM
[2022-09-25 17:39] LABS: Appearance Urine Clear (Clear); Bilirubin Urine Negative (Negative); Blood Urine Negative (Negative); Color Urine Yellow; Glucose Urine UA Negative (Negative); Ketones Urine Negative (Negative); Leukocyte Esterase Urine Negative (Negative); Nitrite Urine Negative (Negative); Protein Urine Negative (Negative); Specific Gravity Urine > 1.045 (1.000-1.030); Urobilinogen Urine Negative (Negative)
--- NOTE | 2022-09-25 17:52 | Emergency Department Note ---
Impression & Plan Diplopia, Atrial fibrillation ED Provider Note INFORMANT: Patient ED PROVIDER(S): Rubén Caldwell MD CHIEF COMPLAINT: Double vision, fall PLAN: Disposition: Admitted Condition: Good Outpatient prescription management: none Referral: None MEDICAL DECISION MAKING: Patient presented because of double vision. Work-up was initiated. ECG showed that he was in atrial fibrillation which he has a history of. The patient does have a mild anemia on CBC. Chemistry panel, LFTs and TSH are negative. CT of the neck and head including CT angiography revealed right cavernous carotid dilatation but no evidence of acute stroke or dissection. No tumor was noted. Chest imaging was performed and was negative. Patient is still complaining of double vision. MR imaging was ordered both with and without contrast. Discussed with venue manager. Dee Dee Cutler reports the patient lives in independent living at the facility and has had multiple fall recently and complained of double vision today. The staff there reports they have concerns for his safety at the facility due to him being independent and them not having access to his medical records. Jaclyn Cutler contacted the office of aging. OOA is in agreement that the patient most likely isnt safe in his residence and recommendation is for him to be admitted while Dee Dee Cutler works with him on a safer living arrangement. [facility] Diagnostics were reviewed and case discussed with Dr Esparza. Patient was evaluated in the ER admitted for further management After review of the information above and other included data, I feel the patient requires admission. Triage Nursing notes reviewed and agree them. Vital Signs: reviewed and remarkable for no significant abnormalities Prior /Outside records reviewed: none Differential diagnosis: CVA, TIA, tumor, Conjunctivitis, trauma, corneal abrasion, hyphema, glaucoma, iritis, corneal ulcer, dendrite, CRAO, CRVO, vitreous detachment, retinal detachment, as well as other pathologies. Diagnostics, as interpreted by me: ECG: Twelve-lead ECG reveals atrial fibrillation at 69 bpm with left axis deviation and right bundle branch block. No ST elevation. Cardiac Monitoring: Cardiac monitoring ordered by me: The patient was placed on continuous cardiac monitoring and observed. It revealed atrial fibrillation at 62 bpm Medical decision rules: none Imaging studies: CT and CT angiography as noted above. MR imaging pending. Chest x-ray. Findings: A chest x-ray was performed and revealed no pneumothorax, effusion, infiltrate, pulmonary edema, free air under the diaphragm, or wide mediastinum. Impression: No acute disease. HPI: The patient is a 87year old male who presents to the Emergency Room with complaints of double vision. This started 1 to 2 weeks ago and is persisting. Patient notes that his vision split horizontally. Patient did have several falls recently. Staff at his independent living is concerned about his safety and ability to safely get around. The patient also notes the following associated symptoms, bruising on the right arm from the fall 2 weeks ago. The patient has taken no medication for relieving factors. Current pain is rated as 0/10. Pt denies LOC, headache, fevers, chills, diaphoresis,neck pain, chest pain, breathing difficulties, nausea, vomiting, abdominal pain, back pain, melena, hematochezia, urinary symptoms, numbness, weakness, lymphadenopathy, rash, or other complaints. PAST MEDICAL HISTORY: See Below, A-fib PAST SURGICAL HISTORY: See Below, SOCIAL HISTORY: See Below, retired HOME MEDICATIONS: See Below ALLERGIES: See Below VITALS: See Below PHYSICAL EXAMINATION: GENERAL: Awake, alert, well-appearing, in no distress HENT: Normocephalic, atraumatic. Oropharynx unremarkable. EYES: Normal conjunctiva. Sclera non-icteric. PERRLA. EOMI. NECK: Inspection normal. Non-tender. Supple. No nuchal rigidity. FROM. No masses. RESPIRATORY: Clear to auscultation. No wheezes. No rales. Normal respiratory effort. CARDIAC: Normal rate. Normal rhythm. No murmurs. No rubs. Extremities warm and well perfused. Pulses equal. No JVD. GI: Soft, non-distended. No tenderness to palpation. No rebound or guarding. No masses. RECTAL: Deferred. MUSCULOSKELETAL: Atraumatic. Chest examination reveals no tenderness. The back is symmetrical on inspection without obvious abnormality. There is no CVA tenderness to palpation. No joint edema. LOWER EXTREMITIES: Calves are equal size bilaterally and non-tender. No edema. No discoloration. NEURO: Normal sensorium. No sensory or motor deficits noted. Speech normal. No drift. Normal rapid alternating movements. Cranial nerves II through XII intact. SKIN: No rash or jaundice noted. 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 following with Dr Azul. Glaucoma History of blood clots pt unsure about this? History of COVID-2020, resolved, no symptoms, tested at assisted living facilty and "test was positive" HTN (hypertension), benign controlled, stable per pt Sensorineural hearing loss of both ears Surgical History H/[place] [facility] History of aortic valve replacement All cardiac surgeries done [place] [facility]. Follows w/JORGE BakerG History of back surgery age 32 History of left cataract surgery History of open reduction and internal fixation (ORIF) procedure ankle-pt unsure which side History of right cataract surgery Hx of colonoscopy S/P closure of ileostomy S/P colon resection 04/01/19 Dr. Andrzej Bellamy- Open sigmoidectomy with colocolostomy, flexible sigmoidoscopy, and transversus abdominus plane (TAP) block S/P repair of ventral hernia X 2 with placement of mesh S/P small bowel resection Family History Mother Heart disease Hypertension Father Hypertension Denies family history of Ovarian cancer Prostate cancer Myocardial infarction Breast cancer Colorectal cancer Social History Smoking Status: Never smoker Second Hand Exposure: No; Do You Dip or Chew Tobacco: No; Hx Alcohol Use: Yes Alcohol type: wine Alcohol Intake Frequency: Monthly or Less Alcohol Intake Frequency Comment: 2 drinks per week Hx Substance Use: No Preferred Language: Surinamese Communication Ability: Effective Hearing Ability: Hard of Hearing Pharmacy Services Representative Required: No Beliefs That Will Affect Care: None marital status: Single Current Living Situation: Alone and Other Current Living Situation Comment: [facility] current occupational status: retired How many Children do You have: 0 Feels Safe at Home: Yes Childhood Exposure to Second-Hand Smoke: No Diet: regular caffeine: No Dental Care, Regularly: Yes Physical Activity Frequency: Does not Exercise Seatbelt Use: always Sunscreen Use: No Assistive Devices: Cane and Walker Allergies Allergies Allergy/AdvReac Type Severity Reaction Status Date / Time No Known Allergies Allergy Verified 09/25/22 17:36 Home Meds Home Medications Medication Instructions Recorded Confirmed ggvvnywhbjsb-pmzgmkaq-ohqkan tablet 1 tab PO HS 08/27/21 09/25/22 colestipol 1 gram tablet (Colestid) 1 g PO DAILY PRN loose stools 08/16/22 09/25/22 furosemide 20 mg tablet 20 mg PO QAM 08/16/22 09/25/22 finasteride 5 mg tablet (Proscar) 5 mg PO HS 08/28/22 09/25/22 vit C 250 mg-E 90 mg-zinc 40 1 tab PO HS 09/25/22 09/25/22 mg-copper 1 ug-noxspa-ygugib chew tablet (PreserVision AREDS-2) Previous Rx's Medication Instructions Recorded rivaroxaban 20 mg tablet (Xarelto) 20 mg PO HS #90 tabs 10/16/21 atorvastatin 20 mg tablet 20 mg PO HS #90 tabs 10/18/21 lisinopril 5 mg tablet 5 mg PO HS #90 tabs 05/17/22 trazodone 50 mg tablet 50 mg PO HS #30 tabs 05/17/22 tamsulosin 0.4 mg capsule (Flomax) 0.4 mg PO HS #30 caps 07/16/22 clopidogrel 75 mg tablet 75 mg PO QAM #90 tabs 08/30/22 Results & Data (ED) Vital Signs Vital Signs - 24 hr 09/25/22 14:10 09/25/22 14:10 09/25/22 14:15 Temperature 36.5 C Temperature Source Oral Pulse Rate 63 66 Pulse Rate [Apical] 63 Pulse Rate from SpO2 Sensor Pulse Rhythm [Apical] Regular Pulse Strength [Apical] Normal Respiratory Rate 18 18 Respiratory Effort / Characteristics Non-Labored Non-Labored Respiratory Depth Normal Normal Respiratory Pattern Regular Regular Blood Pressure 108/75 Blood Pressure [Right Arm] 108/75 Blood Pressure Mean 86 Blood Pressure Mean [Right Arm] 86 Blood Pressure Position [Right Arm] Lying Pulse Oximetry 96 Oxygen Delivery Method Room Air Sepsis Recent Fever Within 48 Hours No Sepsis New/Unexplained Change in Mental Status No Sepsis Action Taken by Nursing No Action Required 09/25/22 14:59 09/25/22 13:59 09/25/22 14:06 Temperature Temperature Source Pulse Rate 62 35 L Pulse Rate [Apical] Pulse Rate from SpO2 Sensor 60 Pulse Rhythm [Apical] Pulse Strength [Apical] Respiratory Rate 18 15 Respiratory Effort / Characteristics Respiratory Depth Respiratory Pattern Blood Pressure 108/75 Blood Pressure [Right Arm] Blood Pressure Mean 86 Blood Pressure Mean [Right Arm] Blood Pressure Position [Right Arm] Pulse Oximetry 96 94 Oxygen Delivery Method Room Air Sepsis Recent Fever Within 48 Hours Sepsis New/Unexplained Change in Mental Status Sepsis Action Taken by Nursing 09/25/22 14:07 09/25/22 14:10 09/25/22 14:20 Temperature Temperature Source Pulse Rate 70 66 61 Pulse Rate [Apical] Pulse Rate from SpO2 Sensor Pulse Rhythm [Apical] Pulse Strength [Apical] Respiratory Rate 15 19 15 Respiratory Effort / Characteristics Respiratory Depth Respiratory Pattern Blood Pressure Blood Pressure [Right Arm] Blood Pressure Mean Blood Pressure Mean [Right Arm] Blood Pressure Position [Right Arm] Pulse Oximetry Oxygen Delivery Method Sepsis Recent Fever Within 48 Hours Sepsis New/Unexplained Change in Mental Status Sepsis Action Taken by Nursing 09/25/22 14:30 09/25/22 14:31 09/25/22 14:31 Temperature Temperature Source Pulse Rate 58 L 62 Pulse Rate [Apical] Pulse Rate from SpO2 Sensor Pulse Rhythm [Apical] Pulse Strength [Apical] Respiratory Rate 20 19 Respiratory Effort / Characteristics Respiratory Depth Respiratory Pattern Blood Pressure 101/76 Blood Pressure [Right Arm] Blood Pressure Mean 84 Blood Pressure Mean [Right Arm] Blood Pressure Position [Right Arm] Pulse Oximetry Oxygen Delivery Method Sepsis Recent Fever Within 48 Hours Sepsis New/Unexplained Change in Mental Status Sepsis Action Taken by Nursing 09/25/22 14:40 09/25/22 14:50 09/25/22 15:00 Temperature Temperature Source Pulse Rate 60 62 59 L Pulse Rate [Apical] Pulse Rate from SpO2 Sensor Pulse Rhythm [Apical] Pulse Strength [Apical] Respiratory Rate 14 15 18 Respiratory Effort / Characteristics Respiratory Depth Respiratory Pattern Blood Pressure Blood Pressure [Right Arm] Blood Pressure Mean Blood Pressure Mean [Right Arm] Blood Pressure Position [Right Arm] Pulse Oximetry Oxygen Delivery Method Sepsis Recent Fever Within 48 Hours Sepsis New/Unexplained Change in Mental Status Sepsis Action Taken by Nursing 09/25/22 15:01 09/25/22 15:01 09/25/22 15:10 Temperature Temperature Source Pulse Rate 61 59 L Pulse Rate [Apical] Pulse Rate from SpO2 Sensor Pulse Rhythm [Apical] Pulse Strength [Apical] Respiratory Rate 15 15 Respiratory Effort / Characteristics Respiratory Depth Respiratory Pattern Blood Pressure 132/85 Blood Pressure [Right Arm] Blood Pressure Mean 100 Blood Pressure Mean [Right Arm] Blood Pressure Position [Right Arm] Pulse Oximetry Oxygen Delivery Method Sepsis Recent Fever Within 48 Hours Sepsis New/Unexplained Change in Mental Status Sepsis Action Taken by Nursing 09/25/22 15:20 09/25/22 15:30 09/25/22 15:30 Temperature Temperature Source Pulse Rate 58 L 56 L Pulse Rate [Apical] Pulse Rate from SpO2 Sensor Pulse Rhythm [Apical] Pulse Strength [Apical] Respiratory Rate 16 15 Respiratory Effort / Characteristics Respiratory Depth Respiratory Pattern Blood Pressure 129/94 Blood Pressure [Right Arm] Blood Pressure Mean 105 Blood Pressure Mean [Right Arm] Blood Pressure Position [Right Arm] Pulse Oximetry Oxygen Delivery Method Sepsis Recent Fever Within 48 Hours Sepsis New/Unexplained Change in Mental Status Sepsis Action Taken by Nursing 09/25/22 15:40 09/25/22 15:57 09/25/22 16:00 Temperature Temperature Source Pulse Rate 73 80 Pulse Rate [Apical] Pulse Rate from SpO2 Sensor Pulse Rhythm [Apical] Pulse Strength [Apical] Respiratory Rate 15 15 Respiratory Effort / Characteristics Respiratory Depth Respiratory Pattern Blood Pressure 140/98 Blood Pressure [Right Arm] Blood Pressure Mean 112 Blood Pressure Mean [Right Arm] Blood Pressure Position [Right Arm] Pulse Oximetry Oxygen Delivery Method Sepsis Recent Fever Within 48 Hours Sepsis New/Unexplained Change in Mental Status Sepsis Action Taken by Nursing 09/25/22 16:00 09/25/22 17:59 Temperature Temperature Source Pulse Rate 64 62 Pulse Rate [Apical] Pulse Rate from SpO2 Sensor Pulse Rhythm [Apical] Pulse Strength [Apical] Respiratory Rate 23 Respiratory Effort / Characteristics Respiratory Depth Respiratory Pattern Blood Pressure Blood Pressure [Right Arm] Blood Pressure Mean Blood Pressure Mean [Right Arm] Blood Pressure Position [Right Arm] Pulse Oximetry Oxygen Delivery Method Sepsis Recent Fever Within 48 Hours Sepsis New/Unexplained Change in Mental Status Sepsis Action Taken by Nursing Laboratory Data 09/25/22 15:00 09/25/22 15:00 Lab Results 09/25/22 09/25/22 09/25/22 Range/Units 15:00 15:00 15:00 WBC 4.49 L (4.8-10.8) K/ul RBC 3.72 L (4.70-6.10) M/uL Hgb 12.5 L (14.0-18.0) g/dl Hct 37.1 L (42.0-52.0) % MCV 99.7 (80.0-100.0) fL MCH 33.6 (25.0-34.0) pg MCHC 33.7 (32.0-36.0) g/dL RDW Std Deviation 53.2 H (36.4-46.3) fL RDW Coeff of Any 14.6 H (11.5-14.5) % Plt Count 152 (130-400) K/uL MPV 10.3 (9.4-12.4) fL Immature Gran % (Auto) 0.2 % Neut % (Auto) 58.9 % Lymph % (Auto) 27.4 % Greenlee % (Auto) 10.9 % Eos % (Auto) 2.4 % Baso % (Auto) 0.2 % Neut # (Auto) 2.64 (1.40-6.50) K/uL Lymph # (Auto) 1.23 (1.2-3.4) K/uL Greenlee # (Auto) 0.49 (0.11-0.59) K/uL Eos # (Auto) 0.11 (0-0.50) K/uL Baso # (Auto) 0.01 (0-0.2) K/uL Immature Gran # (Auto) 0.01 (0.01-0.20) K/uL Sodium 139 (136-145) mmol/L Potassium 4.6 (3.5-5.1) mmol/L Chloride 105 (98-107) mmol/L Carbon Dioxide 30 (21-32) mmol/L Anion Gap 4 (3-11) BUN 22 (6-23) mg/dl Creatinine 0.92 (0.6-1.4) mg/dl Est Cr Clr Drug Dosing 54.7 ml/min Est GFR ( Amer) 87.6 ml/min Est GFR (Non-Af Amer) 75.6 ml/min BUN/Creatinine Ratio 23.9 H (10-20) Glucose 84 (70-99(Fasting)) mg/dl Calcium 8.6 (8.6-10.3) mg/dl Magnesium 1.9 (1.7-2.4) mg/dl Total Bilirubin 0.8 (0.2-1.0) mg/dl AST 20 (13-39) U/L ALT 10 (7-52) U/L Alkaline Phosphatase 59 (34-104) U/L Total Creatine Kinase 43 (30-223) U/L Total Protein 6.0 (6.0-8.3) gm/dl Albumin 3.3 L (3.4-5.0) gm/dl Globulin 2.7 (2.5-4.0) gm/dl Albumin/Globulin Ratio 1.2 (0.9-2) TSH 2.833 (0.300-4.500) uIu/ml Urine Color Urine Appearance (Clear) Urine pH (4.5-7.5) Ur Specific Milmay (1.000-1.030) Urine Protein (Negative) Urine Glucose (UA) (Negative) Urine Ketones (Negative) Urine Blood (Negative) Urine Nitrite (Negative) Urine Bilirubin (Negative) Urine Urobilinogen (Negative) Ur Leukocyte Esterase (Negative) SARS-CoV-2, RNA, NAAT (NEGATIVE) 09/25/22 09/25/22 Range/Units 17:10 17:10 WBC (4.8-10.8) K/ul RBC (4.70-6.10) M/uL Hgb (14.0-18.0) g/dl Hct (42.0-52.0) % MCV (80.0-100.0) fL MCH (25.0-34.0) pg MCHC (32.0-36.0) g/dL RDW Std Deviation (36.4-46.3) fL RDW Coeff of Any (11.5-14.5) % Plt Count (130-400) K/uL MPV (9.4-12.4) fL Immature Gran % (Auto) % Neut % (Auto) % Lymph % (Auto) % Greenlee % (Auto) % Eos % (Auto) % Baso % (Auto) % Neut # (Auto) (1.40-6.50) K/uL Lymph # (Auto) (1.2-3.4) K/uL Greenlee # (Auto) (0.11-0.59) K/uL Eos # (Auto) (0-0.50) K/uL Baso # (Auto) (0-0.2) K/uL Immature Gran # (Auto) (0.01-0.20) K/uL Sodium (136-145) mmol/L Potassium (3.5-5.1) mmol/L Chloride (98-107) mmol/L Carbon Dioxide (21-32) mmol/L Anion Gap (3-11) BUN (6-23) mg/dl Creatinine (0.6-1.4) mg/dl Est Cr Clr Drug Dosing ml/min Est GFR ( Amer) ml/min Est GFR (Non-Af Amer) ml/min BUN/Creatinine Ratio (10-20) Glucose (70-99(Fasting)) mg/dl Calcium (8.6-10.3) mg/dl Magnesium (1.7-2.4) mg/dl Total Bilirubin (0.2-1.0) mg/dl AST (13-39) U/L ALT (7-52) U/L Alkaline Phosphatase (34-104) U/L Total Creatine Kinase (30-223) U/L Total Protein (6.0-8.3) gm/dl Albumin (3.4-5.0) gm/dl Globulin (2.5-4.0) gm/dl Albumin/Globulin Ratio (0.9-2) TSH (0.300-4.500) uIu/ml Urine Color Yellow Urine Appearance Clear (Clear) Urine pH 7.0 (4.5-7.5) Ur Specific Milmay > 1.045 H (1.000-1.030) Urine Protein Negative (Negative) Urine Glucose (UA) Negative (Negative) Urine Ketones Negative (Negative) Urine Blood Negative (Negative) Urine Nitrite Negative (Negative) Urine Bilirubin Negative (Negative) Urine Urobilinogen Negative (Negative) Ur Leukocyte Esterase Negative (Negative) SARS-CoV-2, RNA, NAAT NEGATIVE (NEGATIVE) Administered Medications Discontinued Medications Ioversol (Optiray 320 125ml) 118 ml IV ONCE ONE Stop: 09/25/22 15:51 Last Admin: 09/25/22 15:50 Dose: 118 ml Documented By: Chel Imaging Data Radiologist's Impression: Chest X-Ray 09/25/22 14:21 XR chest 1V portable HISTORY: weakness COMPARISON: Chest 09/09/2022. FINDINGS: There are poststernotomy changes and a cardiac valve prosthesis again noted. The heart remains mildly enlarged. This mildly tortuous thoracic aorta. The lungs are hyperexpanded with mild apical predominant emphysematous changes. No pneumothorax. No pleural effusion. Interstitial thickening at the lung bases remains unchanged and is likely chronic. Otherwise, no new focal lung consolidations to suggest a pneumonia. No evidence for pulmonary edema. An IVC filter is partially visualized. IMPRESSION: No significant change compared to the prior study. No acute process. ACT 112: Negative or not required by law. Electronically signed by: Sonido Vann M.D. 09/25/2022 2:45 PM Head CTA 09/25/22 14:21 CT angio head wo/w CLINICAL HISTORY: double vision, fall COMPARISON STUDY: Head CT March 21, 2021. TECHNIQUE: Unenhanced and arterial phase images of the head were obtained. Intravenous injection of 100 cc of Optiray 320 IV was uneventful. Sagittal and coronal reconstructions were viewed as well as maximal intensity projections on an independent 3-D workstation. Automated exposure control was utilized for the study. A dose lowering technique was utilized adhering to the principles of ALARA. FINDINGS: No acute intracranial hemorrhage, midline shift or mass effect is present. Ventricular system is stable. Basal cisterns are patent. There are no extra-axial collections. White matter hypodensities are similar to prior study and favor small vessel disease. There are no findings to suggest acute dural sinus thrombosis or acute territorial infarct. Moderate atrophy is noted. There is no acute calvarial fracture. The bilateral M1, M2, A1 and A2 segments are patent. 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 No saccular aneurysms are identified within the head. There is a large right posterior communicating artery. No central vessel occlusion is identified. IMPRESSION: 1. No acute intracranial findings. 2. No central vessel occlusion. No saccular intracranial aneurysm. 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 ACT 112: Negative or not required by law. Electronically signed by: Jose Le M.D. 09/25/2022 4:07 PM Neck CTA 09/25/22 14:21 CT ANGIOGRAPHY OF THE NECK WITH CONTRAST CLINICAL HISTORY: double vision, fall COMPARISON STUDY: No previous studies for comparison. Technique: CT angiography of the carotid and vertebral arteries was obtained using Optiray and 3D reconstruction on an independent workstation. NASCET criteria was utilized. Automated exposure control was utilized for the study. A dose lowering technique was utilized adhering to the principles of ALARA. Findings: No acute cervical spine fracture is identified. There is no cervical lymphadenopathy. The bilateral common carotid, cervical internal carotid and vertebral arteries are patent. There is minimal plaque within the proximal left internal carotid artery. No stenosis within the major vessels of the neck is noted. There is no dissection. Linear densities at the carotid bifurcations are symmetric and likely artifactual. Right vertebral artery is dominant. IMPRESSION: No stenosis or dissection within the bilateral common carotid, cervical internal carotid or vertebral arteries. ACT 112: Negative or not required by law. Electronically signed by: Jose Le M.D. 09/25/2022 4:12 PM Discharge Plan Visit Data Chief Complaint: Fall ED Provider: Rubén Caldwell Discharge Problem: Diplopia, Atrial fibrillation Forms Stand Alone Forms: [facility] ipadio Prescriptions Prescriptions: No Action Xarelto 20 mg tablet 20 mg PO HS Qty: 90 3RF atorvastatin 20 mg tablet 20 mg PO HS Qty: 90 3RF lisinopril 5 mg tablet 5 mg PO HS Qty: 90 3RF trazodone 50 mg tablet 50 mg PO HS Qty: 30 5RF Rx Instructions: PER PT "ONLY TAKE THIS MED FOR SLEEP". tamsulosin [Flomax] 0.4 mg capsule 0.4 mg PO HS Qty: 30 5RF iswzbazlftwy-evnypicz-ujihbp Tablet 1 tab PO HS furosemide 20 mg tablet 20 mg PO QAM Rx Instructions: takes at lunch colestipol [Colestid] 1 gram tablet 1 g PO DAILY PRN (Reason: loose stools) finasteride [Proscar] 5 mg tablet 5 mg PO HS clopidogrel 75 mg Tablet 75 mg PO QAM Qty: 90 3RF PreserVision AREDS-2 250-90-40-1 mg Tablet,Chewable 1 tab PO HS Referrals Referrals: Jaclyn Hitchcock MD [Primary Care Provider] -
--- NOTE | 2022-09-25 18:18 | History & Physical Report ---
Date of Service September 25, 2022 Assessment & Plan (1) Diplopia: (2) Atrial fibrillation: (3) Hyperlipidemia: (4) Lower extremity edema: (5) Sleep disturbance: (6) Pulmonary nodules: (7) Valvular heart disease: (8) S/P AVR (aortic valve replacement): (9) S/P mitral valve repair: (10) Syncope: Plan Rubén Thapa (Fred) is a 87 year-old male with past medical history of HTN, HLD, Permanent Atrial Fibrillation, Valvular Heart Disease s/p Bioprosthetic AVR (2009) and Mitral Valve Repair (2018), Ascending Aortic Aneurysm, Venous Stasis, Pulmonary Nodules, Sigmoid Volvulus s/p Resection, Suprarenal AAA, and a Right Popliteal Artery Aneurysm s/p repair (2022). He presented to the ED due to recurrent falls and double vision. 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 -CTA neck: no stenosis or dissection within bilateral common carotid, cervical internal carotid or vertebral arteries. -MRI Brain: severe ischemic microangiopathy. No acute infarct. -Will consult neurology. -Patient is alert and oriented, has had ongoing diplopia for about 1 week. No improvement of symptoms, unable to read/focus on text. -Diplopia etiology could be secondary to possible concussion (multiple recent falls, suspect head was hit) although he does not have other symptoms (headache, dizziness) -New finding of severe microvascular ischemia but no focal findings of imaging that would likely correlate to diplopia -Given that diplopia nearly corrects at R lower visual field, could consider muscle weakness, isolated nerve palsy Recurrent Falls Patient has had multiple recent falls at his apartment at [facility]. The facility has contacted [facility] of A[facility] regarding their concerns of his safety. -Fall precautions -Consult PT/OT -Appreciate assistance from CM regarding placement upon discharge -Likely not safe to return to independent living at [facility] Permanent Atrial Fibrillation -Currently in a. fib, rates at 50s-60s -Continue Xarelto S/P Repair Popliteal Artery Aneurysm -Continue Plavix Hypertension -Normotensive since admission. -Continue home lisinopril 5mg Hyperlipidemia -Continue home atorvastatin Sleep Disturbances -Continue home Trazodone FENa: Heart healthy VTE Prophylaxis: Xarelto Code Status: Full Code Dispo:Med-Tele History of Present Illness Primary Care Provider: Jaclyn Hitchcock MD Rubén Thapa (Fred) is a 87 year-old male with past medical history of HTN, HLD, Permanent Atrial Fibrillation, Valvular Heart Disease s/p Bioprosthetic AVR (2009) and Mitral Valve Repair (2018), Ascending Aortic Aneurysm, Venous Stasis, Pulmonary Nodules, Sigmoid Volvulus s/p Resection, Suprarenal AAA, and a Right Popliteal Artery Aneurysm s/p repair (2022). He presented to the ED due to recurrent falls and double vision. He was recently evaluated in the ED on 09/09/22 for weakness/fall at home and tested positive for COVID at that time- he did not have any respiratory symptoms, only generalized weakness/fatigue. The week prior he underwent surgical repair for right popliteal artery aneurysm from which he has recovered well. He notes that the double vision began about 1 week ago, he notes that it began after one of his falls at home. Since then the symptoms have been ongoing, he states the double vision has not gone away since it started. He denies any headache. States he "doesn't know" if he hit his head with the prior falls, but states it was enough to "rough up" his glasses. He denies shortness of breath, chest pain, nausea/vomiting, fever, body aches/chills. Denies dizziness/lightheadedness. He currently lives in independent living at [facility], utilizes a walker and cane at home to ambulate. Allergies Allergy/AdvReac Type Severity Reaction Status Date / Time No Known Allergies Allergy Verified 09/25/22 17:36 Home Medications Medication Instructions Recorded Confirmed Type [id number] tablet 1 tab PO HS 08/27/21 09/25/22 History rivaroxaban 20 mg tablet (Xarelto) 20 mg PO HS #90 tabs 10/16/21 09/25/22 Rx atorvastatin 20 mg tablet 20 mg PO HS #90 tabs 10/18/21 09/25/22 Rx lisinopril 5 mg tablet 5 mg PO HS #90 tabs 05/17/22 09/25/22 Rx trazodone 50 mg tablet 50 mg PO HS #30 tabs 05/17/22 09/25/22 Rx tamsulosin 0.4 mg capsule (Flomax) 0.4 mg PO HS #30 caps 07/16/22 09/25/22 Rx colestipol 1 gram tablet (Colestid) 1 g PO DAILY PRN loose stools 08/16/22 09/25/22 History furosemide 20 mg tablet 20 mg PO QAM 08/16/22 09/25/22 History finasteride 5 mg tablet (Proscar) 5 mg PO HS 08/28/22 09/25/22 History clopidogrel 75 mg tablet 75 mg PO QAM #90 tabs 08/30/22 09/25/22 Rx vit C 250 mg-E 90 mg-zinc 40 1 tab PO HS 09/25/22 09/25/22 History mg-copper 1 [id number]-[id number] chew tablet (PreserVision AREDS-2) Past Med/Surg History Medical History 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 following with Dr Azul. Glaucoma History of blood clots pt unsure about this? History of COVID-2020, resolved, no symptoms, tested at assisted living facilty and "test was positive" HTN (hypertension), benign controlled, stable per pt Sensorineural hearing loss of both ears Surgical History H/[place] valve [place] History of aortic valve replacement All cardiac surgeries done in [place]. [place] [facility] [place] of back surgery age 32 History of left cataract surgery History of open reduction and internal fixation (ORIF) procedure ankle-pt unsure which side History of right cataract surgery Hx of colonoscopy S/P closure of ileostomy S/P colon resection 04/01/19 Dr. Andrzej Bellamy- Open sigmoidectomy with colocolostomy, flexible sigmoidoscopy, and transversus abdominus plane (TAP) block S/P repair of ventral hernia X 2 with placement of mesh S/P small bowel resection Family History Mother Heart disease Hypertension Father Hypertension Denies family history of Ovarian cancer Prostate cancer Myocardial infarction Breast cancer Colorectal cancer Social History Smoking Status: Never smoker Second Hand Exposure: No; Do You Dip or Chew Tobacco: No; Hx Alcohol Use: Yes Alcohol type: wine Alcohol Intake Frequency: Monthly or Less Alcohol Intake Frequency Comment: 2 drinks per week Hx Substance Use: No Preferred Language: Hungarian Communication Ability: Effective Hearing Ability: Hard of Hearing Power Truck Driver Required: No Beliefs That Will Affect Care: None marital status: Single Current Living Situation: Alone and Other Current Living Situation Comment: [facility] current occupational status: retired How many Children do You have: 0 Feels Safe at Home: Yes Childhood Exposure to Second-Hand Smoke: No Diet: regular caffeine: No Dental Care, Regularly: Yes Physical Activity Frequency: Does not Exercise Seatbelt Use: always Sunscreen Use: No Assistive Devices: Cane and Walker Review of Systems Review of Systems: As per above Physical Exam Constitutional: + thin, cooperative and comfortable; no acute distress ENMT: External ears and nose normal. Moist mucous membranes Respiratory: normal respiratory effort, lungs clear to auscultation Cardiovascular: Rate/Rhythm: + irregularly irregular Heart Sounds: + murmur Gastrointestinal (Abdomen): normal bowel sounds, soft, nontender, no hepatosplenomegaly Musculoskeletal: Head/Neck/Chest: head normal to inspection Skin: no rashes, warm and dry Neurologic: normal touch/pain/proprioception, moves all extremities and awake Speech / Cognition: normal speech Motor/Sensory: normal movement Cranial Nerves: EOM intact bilaterally, normal facial strength, tongue midline, normal hearing, able to rotate head bilaterally and able to elevate shoulders bilater ally; + nystagmus Pupils equal round and reactive. Psychiatric: Orientation: alert and oriented x 3 Results & Data Results & Data Vital Signs (Past 12 Hours) Vital Signs Temp Pulse Pulse Resp BP BP Pulse Ox 09/25/22 17:59 62 09/25/22 16:00 64 23 09/25/22 16:00 140/98 09/25/22 15:57 80 15 09/25/22 15:40 73 15 09/25/22 15:30 56 L 15 09/25/22 15:30 129/94 09/25/22 15:20 58 L 16 09/25/22 15:10 59 L 15 09/25/22 15:01 132/85 09/25/22 15:01 61 15 09/25/22 15:00 59 L 18 09/25/22 14:50 62 15 09/25/22 14:40 60 14 09/25/22 14:31 101/76 09/25/22 14:31 62 19 09/25/22 14:30 58 L 20 09/25/22 14:20 61 15 09/25/22 14:10 66 19 09/25/22 14:07 70 15 09/25/22 14:06 108/75 09/25/22 13:59 35 L 15 94 09/25/22 14:59 62 18 96 09/25/22 14:15 66 09/25/22 14:10 63 18 108/75 96 09/25/22 14:10 36.5 C 63 18 108/75 O2 Del Method 09/25/22 17:59 09/25/22 16:00 09/25/22 16:00 09/25/22 15:57 09/25/22 15:40 09/25/22 15:30 09/25/22 15:30 09/25/22 15:20 09/25/22 15:10 09/25/22 15:01 09/25/22 15:01 09/25/22 15:00 09/25/22 14:50 09/25/22 14:40 09/25/22 14:31 09/25/22 14:31 09/25/22 14:30 09/25/22 14:20 09/25/22 14:10 09/25/22 14:07 09/25/22 14:06 09/25/22 13:59 09/25/22 14:59 Room Air 09/25/22 14:15 09/25/22 14:10 Room Air 09/25/22 14:10 Diagnostic Findings Chest X-Ray 09/25/22 14:21 XR chest 1V portable HISTORY: weakness COMPARISON: Chest 09/09/2022. FINDINGS: There are poststernotomy changes and a cardiac valve prosthesis again noted. The heart remains mildly enlarged. This mildly tortuous thoracic aorta. The lungs are hyperexpanded with mild apical predominant emphysematous changes. No pneumothorax. No pleural effusion. Interstitial thickening at the lung bases remains unchanged and is likely chronic. Otherwise, no new focal lung consolidations to suggest a pneumonia. No evidence for pulmonary edema. An IVC filter is partially visualized. IMPRESSION: No significant change compared to the prior study. No acute process. ACT 112: Negative or not required by law. Electronically signed by: Sonido Vann M.D. 09/25/2022 2:45 PM Head CTA 09/25/22 14:21 CT angio head wo/w CLINICAL HISTORY: double vision, fall COMPARISON STUDY: Head CT March 21, 2021. TECHNIQUE: Unenhanced and arterial phase images of the head were obtained. Intravenous injection of 100 cc of Optiray 320 IV was uneventful. Sagittal and coronal reconstructions were viewed as well as maximal intensity projections on an independent 3-D workstation. Automated exposure control was utilized for the study. A dose lowering technique was utilized adhering to the principles of ALARA. FINDINGS: No acute intracranial hemorrhage, midline shift or mass effect is present. Ventricular system is stable. Basal cisterns are patent. There are no extra-axial collections. White matter hypodensities are similar to prior study and favor small vessel disease. There are no findings to suggest acute dural sinus thrombosis or acute territorial infarct. Moderate atrophy is noted. There is no acute calvarial fracture. The bilateral M1, M2, A1 and A2 segments are patent. 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 No saccular aneurysms are identified within the head. There is a large right posterior communicating artery. No central vessel occlusion is identified. IMPRESSION: 1. No acute intracranial findings. 2. No central vessel occlusion. No saccular intracranial aneurysm. 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 ACT 112: Negative or not required by law. Electronically signed by: Jose Le M.D. 09/25/2022 4:07 PM Neck CTA 09/25/22 14:21 CT ANGIOGRAPHY OF THE NECK WITH CONTRAST CLINICAL HISTORY: double vision, fall COMPARISON STUDY: No previous studies for comparison. Technique: CT angiography of the carotid and vertebral arteries was obtained using Optiray and 3D reconstruction on an independent workstation. NASCET criteria was utilized. Automated exposure control was utilized for the study. A dose lowering technique was utilized adhering to the principles of ALARA. Findings: No acute cervical spine fracture is identified. There is no cervical lymphadenopathy. The bilateral common carotid, cervical internal carotid and vertebral arteries are patent. There is minimal plaque within the proximal left internal carotid artery. No stenosis within the major vessels of the neck is noted. There is no dissection. Linear densities at the carotid bifurcations are symmetric and likely artifactual. Right vertebral artery is dominant. IMPRESSION: No stenosis or dissection within the bilateral common carotid, cervical internal carotid or vertebral arteries. ACT 112: Negative or not required by law. Electronically signed by: Jose Le M.D. 09/25/2022 4:12 PM Brain MRI 09/25/22 17:32 Exam(s): MRI HEAD W/WO Contrast IV Amt: 6.5ml gadavist EXAM: MR Head Without and With Intravenous Contrast CLINICAL HISTORY: Reason for exam: double vision. TECHNIQUE: Magnetic resonance images of the head/brain without and with intravenous contrast in multiple planes. CONTRAST: Patient received 6.5ml Gadavist of IV contrast COMPARISON: No relevant prior studies available. FINDINGS: Brain: Severe T2/flair signal hyperintensity. No mass. No hemorrhage. No acute infarct. Ventricles: Unremarkable. No ventriculomegaly. Bones/joints: Unremarkable. Sinuses: Unremarkable as visualized. No acute sinusitis. Mastoid air cells: Unremarkable as visualized. No mastoid effusion. Orbits: Unremarkable as visualized. Other findings: IMPRESSION: Severe ischemic microangiopathy Electronically signed by: Jigar Geiger MD 09/25/22 19:57 PM Supervising Physician Co-Signing Physician Notes Patient seen and examined, chart reviewed, case discussed with and I agree with the assessment and plan as above except as otherwise noted Labs and images reviewed Rubén Thapa is an 87yo M with past medical history of A-fib, hypertension, AVR, pulmonary nodule and recent recent COVID. Multiple falls and failure to thrive since then at [facility]. During an evaluation pt reports horizontal diplopia for about 1 week and much worse balance in the last week. Was discussed with office of aging who felt was not safe for independent status and recommended ER evaluation of neuro deficits. CT of the head and neck do not show any acute hemorrhage or ischemia; aneurysmal dilatation of right cavernous carotid 9 mm is noted. Patient is normotensive and is not tachycardic. Prior echo is without evidence of septal defect. History of A-fib and is in A-fib on admission; patient is on rivaroxaban with which she is compliant. No RVR on admission. No ALIZA, creatinine 0.90 on admission. No leukocytosis. Afebrile. MRI shows severe diffuse microangiopathic disease without acute stroke. At bedside evaluation distal extremity strength is intact. Inside Polisher strength, elbow flexion, hip flexion, ankle dorsiflexion/plantarflexion are all 5/5. Sensation is intact without deficit in hands and feet bilaterally. Patient does endorse vertical, and sometimes slightly diagonal diplopia. He has midline vertical diplopia with midline gaze which improves but does not correct on near focus, and which worsens with distant focus. He has had no chest pain, chest pressure and denies headache/lightheadedness/syncope. No palpitations EOM are intact and there is no strabismus, his diplopia improved and nearly but does not completely correct at right lower field gaze. He does have right > Leye nystagmus which extinguishes on both right and left lateral gaze; no saccades are appreciated. Pupils are equal and reactive. Arcus senilis is present bilaterally. No stroke or demyelinating disease is appreciated,? Diplopia with nystagmus due to concussion 2 weeks ago, although he does not seem to have headache or poor coordination with this. MRI does not show any lesions, near correction on right lower field gaze? Lateral rectus weakness. He does not have any eye pain on movements, and does not show evidence of ocular muscle entrapment. I agree with assessment and management above including neurology consult. Recommend continuing Plavix at this time. Given no stroke seen on MRI and symptoms of over 2 permissive hypertension is not required at this, can treat the blood pressure goal of systolic 180. Continue rivaroxaban, lisinopril, Plavix, atorvastatin. Appears near euvolemic, mucous membranes are tacky and with a slightly elevated BUN/creatinine ratio suggest slightly volume contracted but without ALIZA. Resident Activity Tracking Resident Involvement: Resident Care Provided Care Provided: Adult Hospital Medicine (10) Syncope Syncope type: unspecified Qualified Code(s): R55 - Syncope and collapse
[2022-09-25] MEDS ORDERED: GADOBUTROL 65ML VIAL IV ONE (19:00)
--- NOTE | 2022-09-25 19:58 | Magnetic Resonance Report ---
Exam(s): MRI HEAD W/WO Contrast IV Amt: 6.5ml gadavist EXAM: MR Head Without and With Intravenous Contrast CLINICAL HISTORY: Reason for exam: double vision. TECHNIQUE: Magnetic resonance images of the head/brain without and with intravenous contrast in multiple planes. CONTRAST: Patient received 6.5ml Gadavist of IV contrast COMPARISON: No relevant prior studies available. FINDINGS: Brain: Severe T2/flair signal hyperintensity. No mass. No hemorrhage. No acute infarct. Ventricles: Unremarkable. No ventriculomegaly. Bones/joints: Unremarkable. Sinuses: Unremarkable as visualized. No acute sinusitis. Mastoid air cells: Unremarkable as visualized. No mastoid effusion. Orbits: Unremarkable as visualized. Other findings: IMPRESSION: Severe ischemic microangiopathy Electronically signed by: Jigar Geiger MD 09/25/22 19:57 PM
[2022-09-25] MEDS ORDERED: NON-FORMULARY MEDICATION (Multivitamin-Minerals-Lutein Tablet) PO SCH (22:32)
[2022-09-25] MEDS ORDERED: POLYETHYLENE (MIRALAX) 17 GM PACK PO PRN (22:32)
[2022-09-25] MEDS: lisinopril 5 MG TAB PO SCH (23:30)
[2022-09-25] MEDS: ATORVASTATIN 20 MG TAB PO SCH (23:31)
[2022-09-25] MEDS: TAMSULOSIN HCL 0.4 MG CAP PO SCH (23:31)
[2022-09-25] MEDS: RIVAROXABAN 20 MG TAB PO SCH (23:31)
[2022-09-25] MEDS: CEROVITE ADV FORMULA TAB PO SCH (23:31)
[2022-09-25] MEDS: FINASTERIDE 5 MG TAB PO SCH (23:31)
[2022-09-25] MEDS: traZODone HCL 50 MG TAB PO PRN (23:36)
--- NOTE | 2022-09-26 06:48 | Hospitalist Progress Note ---
Date of Service September 26, 2022 Assessment & Plan (1) Diplopia: (2) Atrial fibrillation: (3) Hyperlipidemia: (4) Lower extremity edema: (5) Sleep disturbance: (6) Pulmonary nodules: (7) Valvular heart disease: (8) S/P AVR (aortic valve replacement): (9) S/P mitral valve repair: (10) Syncope: Plan Rubén Thapa (Fred) is a 87 year-old male with past medical history of HTN, HLD, Permanent Atrial Fibrillation, Valvular Heart Disease s/p Bioprosthetic AVR (2009) and Mitral Valve Repair (2018), Ascending Aortic Aneurysm, Venous Stasis, Pulmonary Nodules, Sigmoid Volvulus s/p Resection, Suprarenal AAA, and a Right Popliteal Artery Aneurysm s/p repair (2022). He presented to the ED due to recurrent falls and double vision. 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 -CTA neck: no stenosis or dissection within bilateral common carotid, cervical internal carotid or vertebral arteries. -MRI Brain: severe ischemic microangiopathy. No acute infarct. - Neurology consulted: given serve ischemic microangiopathy likely secondary to micro infarct to the 3rd nerve - continue clopidogrel - hopeful that could resolve in 6-8 weeks - ophthalmology evaluation as an outpatient Recurrent Falls Patient has had multiple recent falls at his apartment at [facility]. The facility has contacted Office of A[facility] regarding their concerns of his safety. -Fall precautions -Consult PT/OT Permanent Atrial Fibrillation -rate controlled with rates in the 50s/60s -Continue Xarelto S/P Repair Popliteal Artery Aneurysm -Continue Plavix Hypertension -Normotensive since admission. -Continue home lisinopril 5mg Hyperlipidemia -Continue home atorvastatin Sleep Disturbances -Continue home Trazodone Lower Extremity Edema - continue home lasix FENa: Heart healthy VTE Prophylaxis: Xarelto Code Status: Full Code Admission and Anticipated Discharge Date Admission Date: September 25, 2022 Supervising Physician Co-Signing Physician Notes I personally examined the patient and verified all knight points of history and exam, discussed case, and agree with decision making with Dr Diez Feeling up to going home, awaiting PT/OT input when i saw him vitals noted nad heent nc at mmm breathing unlabored no accessory muscles good effort skin no rashes no pallor or icterus diplopia, falls, weaknessappreciate neurology input. PT/OT, dispo planning. Otherwise as above. Subjective Michael was doing well this morning. Eating breakfast. States that he has been having double vision for about 2 weeks. Had multiple falls in that time frame and double vision began around the time of a fall. States he may have hot head. Denies headache, pain with eye movements. Review of Systems Review of Systems: As per above Physical Exam Constitutional: + thin, cooperative and comfortable; no acute distress ENMT: External ears and nose normal. Moist mucous membranes Respiratory: normal respiratory effort, lungs clear to auscultation Cardiovascular: Rate/Rhythm: + irregularly irregular Heart Sounds: + murmur Gastrointestinal (Abdomen): normal bowel sounds, soft, nontender, no hepatosplenomegaly Musculoskeletal: Head/Neck/Chest: head normal to inspection Skin: no rashes, warm and dry Neurologic: normal touch/pain/proprioception, moves all extremities and awake Speech / Cognition: normal speech Motor/Sensory: normal movement Cranial Nerves: EOM intact bilaterally, normal facial strength, tongue midline, normal hearing, able to rotate head bilaterally and able to elevate shoulders bilaterally; + nystagmus Pupils equal round and reactive. Psychiatric: Orientation: alert and oriented x 3 Results & Data Results & Data Vital Signs (Past 12 Hours) Vital Signs Temp Pulse Pulse Resp BP BP Pulse Ox 09/25/22 22:15 09/25/22 22:15 36.4 C L 72 18 154/101 H 100 09/25/22 23:04 62 09/26/22 02:42 36.2 C L 68 16 130/88 94 09/25/22 22:30 36.4 C L 72 18 154/101 H 100 09/25/22 22:00 58 L 15 09/25/22 22:00 135/101 H 09/25/22 21:50 61 15 09/25/22 21:40 65 23 09/25/22 21:30 61 15 09/25/22 21:20 69 14 09/25/22 21:18 129/103 H 09/25/22 21:18 65 15 09/25/22 21:10 63 15 09/25/22 21:00 59 L 15 09/25/22 20:50 57 L 15 09/25/22 20:40 60 15 09/25/22 20:30 56 L 15 09/25/22 20:30 135/109 H 09/25/22 20:20 61 24 09/25/22 20:10 55 L 17 09/25/22 20:01 52 L 20 09/25/22 20:01 138/97 09/25/22 20:00 55 L 19 09/25/22 19:50 61 22 09/25/22 19:50 130/101 H 09/25/22 19:40 61 23 O2 Del Method 09/25/22 22:15 Room Air 09/25/22 22:15 Room Air 09/25/22 23:04 09/26/22 02:42 Room Air 09/25/22 22:30 Room Air 09/25/22 22:00 09/25/22 22:00 09/25/22 21:50 09/25/22 21:40 09/25/22 21:30 09/25/22 21:20 09/25/22 21:18 09/25/22 21:18 09/25/22 21:10 09/25/22 21:00 09/25/22 20:50 09/25/22 20:40 09/25/22 20:30 09/25/22 20:30 09/25/22 20:20 09/25/22 20:10 09/25/22 20:01 09/25/22 20:01 09/25/22 20:00 09/25/22 19:50 09/25/22 19:50 09/25/22 19:40 Resident Activity Tracking Resident Involvement: Resident Care Provided Care Provided: Adult Hospital Medicine (10) Syncope Syncope type: unspecified Qualified Code(s): R55 - Syncope and collapse
[2022-09-26] MEDS: CLOPIDOGREL BISULFATE 75 MG TAB PO SCH (08:04)
[2022-09-26] MEDS: FUROSEMIDE 20 MG TAB PO SCH (08:04)
[2022-09-26 09:00] LABS: Eosinophils # (auto) 0.09 K/uL (0-0.50); Eosinophils % (auto) 2.4 %; Hematocrit (blood only) 36.8 % (42.0-52.0); Hemoglobin 12.5 g/dl (14.0-18.0); Immature Granulocytes # (auto) 0.01 K/uL (0.01-0.20); Immature Granulocytes % (auto) 0.3 %; Lymphocytes # (auto) 1.05 K/uL (1.2-3.4); Lymphocytes % (auto) 28.3 %; Mean Corpuscular Hemoglobin 33.2 pg (25.0-34.0); Mean Corpuscular Volume 97.6 fL (80.0-100.0); Mean Platelet Volume 10.2 fL (9.4-12.4); Monocytes # (auto) 0.36 K/uL (0.11-0.59); Monocytes % (auto) 9.7 %; Neutrophils % (auto) 59.3 %; Platelet Count 152 K/uL (130-400); RDW Coefficient of Variation 14.4 % (11.5-14.5); RDW Standard Deviation 51.3 fL (36.4-46.3); Red Blood Count 3.77 M/uL (4.70-6.10); White Blood Count 3.71 K/ul (4.8-10.8)
[2022-09-26 09:16] LABS: BUN Creatinine Ratio 24.4 (10-20); Calcium 8.4 mg/dl (8.6-10.3); Creatinine Clr Calc Pharmacy 60.8 ml/min; Est GFR (African American) 95.4 ml/min; Est GFR (Non-African American) 82.3 ml/min; Magnesium 1.8 mg/dl (1.7-2.4); Potassium 4.1 mmol/L (3.5-5.1)
--- NOTE | 2022-09-26 09:52 | Neurology Consultation ---
Date of Consultation September 26, 2022 Assessment & Plan (1) Diplopia: (2) Atrial fibrillation: (3) Chronic cerebral ischemia: Plan Patient had a subacute onset of persistent double vision over the last 2 weeks. Although his exam is subtle I wonder about a left partial, painless, p upil sparing 3rd nerve palsy. 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 Does have some mild memory dysfunction but this is consistent with age and his MRI Patient has chronic/ persistent atrial fibrillation on anticoagulant. The double vision is likely secondary to micro infarct to the 3rd nerve. This is frequently seen in elderly patients with a history of diabetes or hypertension. It tends to be self-limited and resolved within 6-8 weeks most of the time. Recommendations: 1. keep Xarelto and clopidogrel the same. Consider adding 81 mg aspirin but I am not sure this would do anything to help prevent events more than it would increase his bruising/ bleeding risk 2. recommend ophthalmology evaluation as an outpatient. 3. Please contact me if I can be of further assistance on this case Overall, I spent a total of 75 minutes with this case including review of records, review of CT and MRI films, reports generation, direct evaluation the patient at bedside, and discussion of the case with the patient at bedside and Dr. David including differential diagnosis and treatment options. History of Present Illness Reason for Consultation: Patient is an 87-year-old, who I was asked to see at the request of Jossie Cronin, for neurologic consultation regarding double vision. Requesting Physician: Jossie Cronin MD Attending Physician: Jigar David DO History of Present Illness Patient had a popliteal artery aneurysm repair on August 28. He went for his 2 week follow-up and apparently tripped and fell over the curb. He had no fracture or head trauma. He went to the emergency room was tested positive for Covid-19. He had to spend 5 days isolated in his apartment at [facility] and ended up falling twice in their (losing his balance ). He did have any specific head trauma but once he went down and ended up bending his glasses. He did not have any headaches but he noted some double vision at 1 point during this quarantine. Double vision has been present ever since over the last 2 weeks. It is constant and tends to be in any direction. One image is above the other. He denies any numbness or weakness of the limbs Because of his falls and double vision he was sent to the emergency room and ended up being admitted. He is in persistent atrial fibrillation. Blood pressure was 108/75 and he was afebrile. O2 saturation was 96% with a rate control atrial fibrillation in the 60s. He was Covid-19 negative. CBC, Chem profile, TSH, and urinalysis were unremarkable. Chest x-ray showed no acute changes. CT scan of the head showed no acute issues or bleed. 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 MRI of the brain revealed significant generalized atrophy and extensive old small vessel ischemic disease. there was no acute stroke and no enhancement with contrast. I reviewed the CT and MRI films. Patient remains rate controlled in the 60s with his atrial fibrillation and is blood pressure 134/89. He continues to have double vision in any direction without headache or eye pain. He has no history of glaucoma or eyedrops. Allergies Allergy/AdvReac Type Severity Reaction Status Date / Time No Known Allergies Allergy Verified 09/25/22 17:36 Home Medications Medication Instructions Recorded Confirmed Type kjcnjvbaiqnv-todvovkx-yqzlxh tablet 1 tab PO HS 08/27/21 09/25/22 History rivaroxaban 20 mg tablet (Xarelto) 20 mg PO HS #90 tabs 10/16/21 09/25/22 Rx atorvastatin 20 mg tablet 20 mg PO HS #90 tabs 10/18/21 09/25/22 Rx lisinopril 5 mg tablet 5 mg PO HS #90 tabs 05/17/22 09/25/22 Rx trazodone 50 mg tablet 50 mg PO HS #30 tabs 05/17/22 09/25/22 Rx tamsulosin 0.4 mg capsule (Flomax) 0.4 mg PO HS #30 caps 07/16/22 09/25/22 Rx colestipol 1 gram tablet (Colestid) 1 g PO DAILY PRN loose stools 08/16/22 09/25/22 History furosemide 20 mg tablet 20 mg PO QAM 08/16/22 09/25/22 History finasteride 5 mg tablet (Proscar) 5 mg PO HS 08/28/22 09/25/22 History clopidogrel 75 mg tablet 75 mg PO QAM #90 tabs 08/30/22 09/25/22 Rx vit C 250 mg-E 90 mg-zinc 40 1 tab PO HS 09/25/22 09/25/22 History mg-copper 1 ez-doxoac-wfshsk chew tablet (PreserVision AREDS-2) Patient History Medical History 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 following with Dr Azul. Glaucoma History of blood clots pt unsure about this? History of COVID-19 2020, resolved, no symptoms, tested at assisted living [facility] and "test was positive" HTN (hypertension), benign controlled, stable per pt Sensorineural hearing loss of both ears Surgical History H/O [place] valve [place] History of aortic valve replacement All cardiac surgeries done in [place]. Follows w/JULITO Baker History of back surgery age 32 History of left cataract surgery History of open reduction and internal fixation (ORIF) procedure ankle-pt unsure which side History of right cataract surgery Hx of colonoscopy S/P closure of ileostomy S/P colon resection 04/01/19 Dr. Andrzej Bellamy- Open sigmoidectomy with colocolostomy, flexible sigmoidoscopy, and transversus abdominus plane (TAP) block S/P repair of ventral hernia X 2 with placement of mesh S/P small bowel resection Family History Mother , age 89 of heart issues Heart disease Hypertension Father , age 82 following complications after a fall Hypertension Denies family history of Ovarian cancer Prostate cancer Myocardial infarction Breast cancer Colorectal cancer Social History (Updated 09/26/22 @ 09:58 by Marcos Cavazos MD) Smoking Status: Never smoker Second Hand Exposure: No; Do You Dip or Chew Tobacco: No; Hx Alcohol Use: Yes Alcohol type: wine Alcohol Intake Frequency: Monthly or Less Alcohol Intake Frequency Comment: 2 drinks per week Hx Substance Use: No Preferred Language: Vietnamese Communication Ability: Effective Hearing Ability: Hard of Hearing Night Clerk Required: No Beliefs That Will Affect Care: None marital status: Single Current Living Situation: Alone Current Living Situation Comment: independent living @ [facility] current occupational status: retired 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 How many Children do You have: 0 Other Information That Helps Us Care for You: No Feels Safe at Home: Yes Safety Concerns: Feels Safe At This Time Childhood Exposure to Second-Hand Smoke: No Diet: regular caffeine: No Dental Care, Regularly: Yes Physical Activity Frequency: Does not Exercise Seatbelt Use: always Sunscreen Use: No Assistive Devices: Cane and Glasses Review of Systems Constitutional: no fever, no fatigue and no weakness Eyes: + diplopia; no eye pain and no worsening vision Ear, Nose, Mouth, Throat: no ear pain, no tinnitus, no hearing loss, no dizziness, no snoring, no hoarseness and no dysphagia Respiratory: no cough and no dyspnea Cardiovascular: no chest pain, no palpitations and no lightheadedness Gastrointestinal: no abdominal pain, no nausea and no vomiting Musculoskeletal: no back pain, no neck pain, no radicular pain, no joint pain and no myalgia Integumentary: no rash and no lesions Neurologic: + gait abnormality and + generalized weakness; no localized weakness, no tingling, no numbness, no tremor(s), no abnormal movements, no headache(s), no abnormal speech, no confusion and no memory loss Psychiatric: no depression, no irritability, no anxiety, no difficulty concentrating, no confusion and no hallucinations Endocrine: no fatigue and no flushing Hematologic / Lymphatic: no easy bleeding and no easy bruising Allergy / Immunological: no urticaria and no problem reported Exam (Neuro) Physical Exam: The patient is right-handed. The patient is awake, alert, and attentive. Speech is normal without any aphasia or dysarthria. The patient can name objects, repeat phrases, and has normal spontaneous speech. Mentation and thought processes are intact, with orientation to person, place and time, and normal fund of knowledge. Attention and concentration are normal. Mood and affect are normal and appropriate. General appearance and grooming are normal. Short and long-term memory are reasonably intact to conversation Pupils are 2 mm bilaterally and reactive to light. at 1st, extraocular eye muscles seemed intact without nystagmus. However with more careful observation the patient did not seem to elevate his left eye with upgaze as much as the right. He had double vision in any gaze and he did not have any 6th nerve palsy. He did not have any head tilt either. Visual acuity and visual john seem normal grossly to confrontation. There are no deficits to sensation in the face in all 3 distributions of the fifth cranial nerve bilaterally. Corneal reflexes are positive bilaterally. Facial strength and symmetry was normal bilaterally. Patient was hard of hearing. Palate moves well without asymmetry. There is normal sternocleidomastoid and trapezius (shoulder shrug) strength bilaterally. Tongue is midline with good strength bilaterally. Neck has a full range of motion without discomfort. There are no cervical bruits bilaterally. There are no cranial or ocular bruits. Heart is without murmur. There is a regular rhythm and rate. Cervical, thoracic, and lumbar spine are nontender to palpation. gait was not tested but stance sitting up was unremarkable. With outstretched arms there is no drift. There are no resting, postural, or action tremors. There is no ataxia with finger to nose testing. There is good facility in the hands. No other abnormal involuntary movements are noted. Motor strength is 5/5 diffusely in the arms bilaterally including deltoids, biceps, triceps, brachioradialis, wrist flexors and extensors, sales support advisor, and intrinsic hand muscles. Motor strength is 5/5 diffusely in the legs bilaterally including hip flexors, quadriceps, hamstrings, gastrocnemius, tibialis anterior, tibialis posterior, and Peroneii muscles. Toe extensors are normal and there is good bulk in the extensor digitorum brevis muscles bilaterally. The limbs have good tone without rigidity or spasticity. There is no atrophy noted in the muscles. Muscle bulk is normal, there is no tenderness to palpation, no myotonia to percussion, and no fasciculations seen. Sensory examination is intact to touch and pin throughout all 4 limbs diffusely. Reflexes are 1/4 in the biceps, triceps, brachioradialis, and quadriceps tendons bilaterally. Achilles tendon reflexes were absent bilaterally. There is no clonus bilaterally. Toes are downgoing with plantar stimulation bilaterally. Peripheral pulses are present and of normal quality distally in all 4 limbs. There is no peripheral edema noted in the limbs. Results & Data Vital Signs (Past 12 Hours) Vital Signs Temp Pulse Pulse Resp BP BP Pulse Ox 09/26/22 08:00 57 L 09/26/22 07:05 36.6 C 52 L 18 134/85 93 09/25/22 22:15 09/25/22 22:15 36.4 C L 72 18 154/101 H 100 09/25/22 23:04 62 09/26/22 02:42 36.2 C L 68 16 130/88 94 09/25/22 22:30 36.4 C L 72 18 154/101 H 100 09/25/22 22:00 58 L 15 09/25/22 22:00 135/101 H 09/25/22 21:50 61 15 O2 Del Method 09/26/22 08:00 09/26/22 07:05 Room Air 09/25/22 22:15 Room Air 09/25/22 22:15 Room Air 09/25/22 23:04 09/26/22 02:42 Room Air 09/25/22 22:30 Room Air 09/25/22 22:00 09/25/22 22:00 09/25/22 21:50 PG Care Time/CCT Total # of Minutes Spent Total Time Spent with Patient: Total time spent is greater than 50% in coordination of care (as documented) at patient's floor/unit and/or counseling patient: Coding Level of Care Code 89105 INT INP/OBS CARE 3/75MIN Diagnoses Diplopia H53.2 Atrial fibrillation I48.91 Chronic cerebral ischemia I67.82 Time Spent (min) 75
[2022-09-26] MEDS: RIVAROXABAN 20 MG TAB PO SCH (17:35)
--- NOTE | 2022-09-26 17:55 | Billing Data ---
Date of Service September 26, 2022 Coding Level of Care Code 11063 SUB INP/OBS CARE
[2022-09-26] MEDS: ATORVASTATIN 20 MG TAB PO SCH (22:10)
[2022-09-26] MEDS: TAMSULOSIN HCL 0.4 MG CAP PO SCH (22:10)
[2022-09-26] MEDS: FINASTERIDE 5 MG TAB PO SCH (22:10)
[2022-09-26] MEDS: CEROVITE ADV FORMULA TAB PO SCH (22:10)
[2022-09-26] MEDS: lisinopril 5 MG TAB PO SCH (22:10)
[2022-09-26] MEDS: traZODone HCL 50 MG TAB PO PRN (23:28)
[2022-09-27 07:11] LABS: Basophils # (auto) 0.01 K/uL (0-0.2); Basophils % (auto) 0.3 %; Eosinophils # (auto) 0.15 K/uL (0-0.50); Eosinophils % (auto) 3.8 %; Hematocrit (blood only) 36.5 % (42.0-52.0); Hemoglobin 12.4 g/dl (14.0-18.0); Immature Granulocytes # (auto) 0.01 K/uL (0.01-0.20); Immature Granulocytes % (auto) 0.3 %; Lymphocytes # (auto) 1.42 K/uL (1.2-3.4); Lymphocytes % (auto) 35.9 %; Mean Corpuscular Hemoglobin 32.8 pg (25.0-34.0); Mean Corpuscular Volume 96.6 fL (80.0-100.0); Mean Platelet Volume 9.6 fL (9.4-12.4); Monocytes # (auto) 0.39 K/uL (0.11-0.59); Monocytes % (auto) 9.9 %; Neutrophils # (auto) 1.97 K/uL (1.40-6.50); Neutrophils % (auto) 49.8 %; Platelet Count 148 K/uL (130-400); RDW Coefficient of Variation 14.2 % (11.5-14.5); RDW Standard Deviation 50.8 fL (36.4-46.3); Red Blood Count 3.78 M/uL (4.70-6.10); White Blood Count 3.95 K/ul (4.8-10.8)
--- NOTE | 2022-09-27 07:29 | Hospitalist Progress Note ---
Date of Service September 27, 2022 Assessment & Plan (1) Diplopia: (2) Atrial fibrillation: (3) Hyperlipidemia: (4) Lower extremity edema: (5) Sleep disturbance: (6) Pulmonary nodules: (7) Valvular heart disease: (8) S/P AVR (aortic valve replacement): (9) S/P mitral valve repair: (10) Syncope: Plan Rubén Thapa (Fred) is a 87 year-old male with past medical history of HTN, HLD, Permanent Atrial Fibrillation, Valvular Heart Disease s/p Bioprosthetic AVR (2009) and Mitral Valve Repair (2018), Ascending Aortic Aneurysm, Venous Stasis, Pulmonary Nodules, Sigmoid Volvulus s/p Resection, Suprarenal AAA, and a Right Popliteal Artery Aneurysm s/p repair (2022). He presented to the ED due to recurrent falls and double vision. 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 -CTA neck: no stenosis or dissection within bilateral common carotid, cervical internal carotid or vertebral arteries. -MRI Brain: severe ischemic microangiopathy. No acute infarct. 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 The facility has contacted [facility] regarding their concerns of his safety. -Fall precautions -Consult PT/OT - Plan for return to [facility] section tomorrow Asymptomatic NSVT - Asymptomatic - Echo from 05/2022 - Prior history of cardiac disease - F/u with cardiology Permanent Atrial Fibrillation -rate controlled with rates in the 50s/60s -Continue Xarelto S/P Repair Popliteal Artery Aneurysm -Continue Plavix Hypertension -Continue home lisinopril 5mg Hyperlipidemia -Continue home atorvastatin Sleep Disturbances -Continue home Trazodone Lower Extremity Edema - continue home lasix FENa: Heart healthy VTE Prophylaxis: Xarelto Code Status: Full Code Admission and Anticipated Discharge Date Admission Date: September 25, 2022 Supervising Physician Co-Signing Physician Notes I personally examined the patient and verified all knight points of history and exam, discussed case, and agree with decision making with Dr Diez frustrated with [facility] having him go to a higher level of care. vitals noted nad heent nc at mmm breathing unlabored no accessory muscles good effort skin no rashes no pallor or icterus diplopia, falls, weaknessappreciate neurology input. PT/OT, dispo planning. [facility] to move him to a higher level of care for the short-term, additional PT/OT. Otherwise as above. Nori Rodriguez was doing well this morning. No complaints. Eating breakfast. Denies chest pain, dyspnea, palpitations. Review of Systems Review of Systems: As per above Physical Exam Physical Exam: Constitutional: well-appearing, no acute distress HEENT: NCAT, no conjunctival injection CV: regular rhythm, no murmur appreciated, extremities well-perfused, no LE edema Resp: CTABL, no wheezes/rales/rhonchi appreciated, no increased work of breathing MSK: no gross deformities appreciated Skin: warm, dry, no rash appreciated Neuro: alert, oriented, no focal neurologic deficit appreciated Results & Data Results & Data Vital Signs (Past 12 Hours) Vital Signs Temp Pulse Pulse Resp BP Pulse Ox O2 Del Method 09/27/22 07:17 36.4 C L 62 18 143/97 H 94 Room Air 09/26/22 21:58 60 09/27/22 03:35 36.5 C 61 18 135/81 97 Room Air 09/26/22 23:37 36.5 C 61 18 136/87 95 Room Air Resident Activity Tracking Resident Involvement: Resident Care Provided Care Provided: Adult Hospital Medicine (10) Syncope Syncope type: unspecified Qualified Code(s): R55 - Syncope and collapse
[2022-09-27 07:30] LABS: BUN Creatinine Ratio 22.9 (10-20); Calcium 8.6 mg/dl (8.6-10.3); Creatinine Clr Calc Pharmacy 56.6 ml/min; Est GFR (Non-African American) 80.2 ml/min; Potassium 3.8 mmol/L (3.5-5.1)
[2022-09-27] MEDS: FUROSEMIDE 20 MG TAB PO SCH (07:50)
[2022-09-27] MEDS: CLOPIDOGREL BISULFATE 75 MG TAB PO SCH (07:51)
[2022-09-27] MEDS ORDERED: COVID19 BIVALENT Vaccine (Pfizer) 30mcg/0.3mL SDV IM ONE (12:23)
[2022-09-27] MEDS: RIVAROXABAN 20 MG TAB PO SCH (17:09)
--- NOTE | 2022-09-27 18:12 | Billing Data ---
Date of Service September 27, 2022 Coding Level of Care Code 88154 SUB INP/OBS CARE
[2022-09-27] MEDS: ATORVASTATIN 20 MG TAB PO SCH (20:14)
[2022-09-27] MEDS: lisinopril 5 MG TAB PO SCH (20:14)
[2022-09-27] MEDS: FINASTERIDE 5 MG TAB PO SCH (20:14)
[2022-09-27] MEDS: TAMSULOSIN HCL 0.4 MG CAP PO SCH (20:15)
[2022-09-27] MEDS: CEROVITE ADV FORMULA TAB PO SCH (20:15)
[2022-09-27] MEDS: traZODone HCL 50 MG TAB PO PRN (21:51)
--- NOTE | 2022-09-27 22:50 | Electrocardiogram Report ---
Test Reason : Blood Pressure : / mmHG Vent. Rate : 069 BPM Atrial Rate : 000 BPM P-R Int : 000 ms QRS Dur : 124 ms QT Int : 480 ms P-R-T Axes : 000 -39 092 degrees QTc Int : 514 ms Atrial fibrillation Left axis deviation Right bundle branch block Possible Inferior infarct Abnormal ECG When compared with ECG of 09-SEP-2022 15:09, No significant change was found Confirmed by Rey Correa ([id number]) on 09/27/2022 10:50:28 PM Referred By: REFERRED SELF Confirmed By:Rey Correa
[2022-09-28 06:38] LABS: Eosinophils # (auto) 0.12 K/uL (0-0.50); Hematocrit (blood only) 37.7 % (42.0-52.0); Hemoglobin 12.9 g/dl (14.0-18.0); Immature Granulocytes # (auto) 0.01 K/uL (0.01-0.20); Immature Granulocytes % (auto) 0.3 %; Lymphocytes # (auto) 0.75 K/uL (1.2-3.4); Mean Corpuscular Hemoglobin 33.2 pg (25.0-34.0); Mean Corpuscular Hgb Conc 34.2 g/dL (32.0-36.0); Mean Corpuscular Volume 97.2 fL (80.0-100.0); Mean Platelet Volume 9.9 fL (9.4-12.4); Monocytes # (auto) 0.39 K/uL (0.11-0.59); Monocytes % (auto) 9.9 %; Neutrophils # (auto) 2.68 K/uL (1.40-6.50); Neutrophils % (auto) 67.8 %; Platelet Count 146 K/uL (130-400); RDW Coefficient of Variation 14.2 % (11.5-14.5); RDW Standard Deviation 50.9 fL (36.4-46.3); Red Blood Count 3.88 M/uL (4.70-6.10); White Blood Count 3.95 K/ul (4.8-10.8)
--- NOTE | 2022-09-28 06:43 | Hospitalist Progress Note ---
Date of Service September 28, 2022 Assessment & Plan (1) Diplopia: (2) Atrial fibrillation: (3) Hyperlipidemia: (4) Lower extremity edema: (5) Sleep disturbance: (6) Pulmonary nodules: (7) Valvular heart disease: (8) S/P AVR (aortic valve replacement): (9) S/P mitral valve repair: (10) Syncope: Plan Rubén Thapa (Fred) is a 87 year-old male with past medical history of HTN, HLD, Permanent Atrial Fibrillation, Valvular Heart Disease s/p Bioprosthetic AVR (2009) and Mitral Valve Repair (2018), Ascending Aortic Aneurysm, Venous Stasis, Pulmonary Nodules, Sigmoid Volvulus s/p Resection, Suprarenal AAA, and a Right Popliteal Artery Aneurysm s/p repair (2022). He presented to the ED due to recurrent falls and double vision. 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 -CTA neck: no stenosis or dissection within bilateral common carotid, cervical internal carotid or vertebral arteries. -MRI Brain: severe ischemic microangiopathy. No acute infarct. 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 The facility has contacted [facility] regarding their concerns of his safety. -Fall precautions -Consult PT/OT - Plan for return to [facility], [facility] section tomorrow Asymptomatic NSVT - Asymptomatic - Echo from 05/2022 - Prior history of cardiac disease - F/u with cardiology Permanent Atrial Fibrillation -rate controlled with rates in the 50s/60s -Continue Xarelto S/P Repair Popliteal Artery Aneurysm -Continue Plavix Hypertension -Continue home lisinopril 5mg Hyperlipidemia -Continue home atorvastatin Sleep Disturbances -Continue home Trazodone Lower Extremity Edema - continue home lasix FENa: Heart healthy VTE Prophylaxis: Xarelto Code Status: Full Code Admission and Anticipated Discharge Date Admission Date: September 25, 2022 Review of Systems Review of Systems: As per above Physical Exam Physical Exam: Constitutional: well-appearing, no acute distress HEENT: NCAT, no conjunctival injection CV: regular rhythm, no murmur appreciated, extremities well-perfused, no LE edema Resp: CTABL, no wheezes/rales/rhonchi appreciated, no increased work of maxim athing MSK: no gross deformities appreciated Skin: warm, dry, no rash appreciated Neuro: alert, oriented, no focal neurologic deficit appreciated Results & Data Results & Data Vital Signs (Past 12 Hours) Vital Signs Temp Pulse Pulse Resp BP Pulse Ox O2 Del Method 09/28/22 03:53 36.5 C 60 18 130/85 95 Room Air 09/27/22 23:37 63 09/27/22 22:39 36.5 C 60 18 129/88 96 Room Air 09/27/22 20:49 36.5 C 59 L 18 130/89 95 Room Air (10) Syncope Syncope type: unspecified Qualified Code(s): R55 - Syncope and collapse
--- NOTE | 2022-09-28 06:50 | Discharge Summary ---
Date of Service September 28, 2022 Admission HPI Per Admitting Provider Rubén Thapa (Fred) is a 87 year-old male with past medical history of HTN, HLD, Permanent Atrial Fibrillation, Valvular Heart Disease s/p Bioprosthetic AVR (2009) and Mitral Valve Repair (2018), Ascending Aortic Aneurysm, Venous Stasis, Pulmonary Nodules, Sigmoid Volvulus s/p Resection, Suprarenal AAA, and a Right Popliteal Artery Aneurysm s/p repair (2022). He presented to the ED due to recurrent falls and double vision. He was recently evaluated in the ED on 09/09/22 for weakness/fall at home and tested positive for COVID at that time- he did not have any respiratory symptoms, only generalized weakness/fatigue. The week prior he underwent surgical repair for right popliteal artery aneurysm from which he has recovered well. He notes that the double vision began about 1 week ago, he notes that it began after one of his falls at home. Since then the symptoms have been ongoing, he states the double vision has not gone away since it started. He denies any headache. States he "doesn't know" if he hit his head with the prior falls, but states it was enough to "rough up" his glasses. He denies shortness of breath, chest pain, nausea/vomiting, fever, body aches/chills. Denies dizziness/lightheadedness. He currently lives in independent living at [facility], utilizes a walker and cane at home to ambulate. Principal Diagnosis Diplopia Discharge Exam Constitutional: well-appearing, no acute distress HEENT: NCAT, no conjunctival injection CV: extremities well-perfused, no LE edema Resp: no increased work of breathing MSK: no gross deformities appreciated Skin: warm, dry, no rash appreciated Neuro: alert, oriented, no focal neurologic deficit appreciated Discharge Data Allergies Allergy/AdvReac Type Severity Reaction Status Date / Time No Known Allergies Allergy Verified 09/25/22 17:36 Consultations 09/25/22 20:47 ED Decision to Admit Stat 09/25/22 22:32 Consult Neurology Routine Ordered Studies 09/25/22 14:21 CT angio head wo/w Stat CT angio neck with con Stat 09/25/22 17:32 MR brain wo/w con Stat Laboratory Results WBC 3.95 K/ul (4.8-10.8) L 09/28/22 06:06 RBC 3.88 M/uL (4.70-6.10) L 09/28/22 06:06 Hgb 12.9 g/dl (14.0-18.0) L 09/28/22 06:06 Hct 37.7 % (42.0-52.0) L 09/28/22 06:06 MCV 97.2 fL (80.0-100.0) 09/28/22 06:06 MCH 33.2 pg (25.0-34.0) 09/28/22 06:06 MCHC 34.2 g/dL (32.0-36.0) 09/28/22 06:06 RDW Std Deviation 50.9 fL (36.4-46.3) H 09/28/22 06:06 RDW Coeff of Any 14.2 % (11.5-14.5) 09/28/22 06:06 Plt Count 146 K/uL (130-400) 09/28/22 06:06 MPV 9.9 fL (9.4-12.4) 09/28/22 06:06 Immature Gran % (Auto) 0.3 % 09/28/22 06:06 Neut % (Auto) 67.8 % 09/28/22 06:06 Lymph % (Auto) 19.0 % 09/28/22 06:06 Calhoun % (Auto) 9.9 % 09/28/22 06:06 Eos % (Auto) 3.0 % 09/28/22 06:06 Baso % (Auto) 0.0 % 09/28/22 06:06 Neut # (Auto) 2.68 K/uL (1.40-6.50) 09/28/22 06:06 Lymph # (Auto) 0.75 K/uL (1.2-3.4) L 09/28/22 06:06 Calhoun # (Auto) 0.39 K/uL (0.11-0.59) 09/28/22 06:06 Eos # (Auto) 0.12 K/uL (0-0.50) 09/28/22 06:06 Baso # (Auto) 0.00 K/uL (0-0.2) 09/28/22 06:06 Immature Gran # (Auto) 0.01 K/uL (0.01-0.20) 09/28/22 06:06 Sodium 137 mmol/L (136-145) 09/28/22 06:06 Potassium 4.0 mmol/L (3.5-5.1) 09/28/22 06:06 Chloride 104 mmol/L (98-107) 09/28/22 06:06 Carbon Dioxide 30 mmol/L (21-32) 09/28/22 06:06 Anion Gap 3 (3-11) 09/28/22 06:06 BUN 21 mg/dl (6-23) 09/28/22 06:06 Creatinine 0.84 mg/dl (0.6-1.4) 09/28/22 06:06 Est Cr Clr Drug Dosing 55.0 ml/min 09/28/22 06:06 Est GFR ( Amer) 92.5 ml/min 09/28/22 06:06 Est GFR (Non-Af Amer) 79.8 ml/min 09/28/22 06:06 BUN/Creatinine Ratio 25.0 (10-20) H 09/28/22 06:06 Glucose 94 mg/dl (70-99(Fasting)) 09/28/22 06:06 Calcium 8.6 mg/dl (8.6-10.3) 09/28/22 06:06 Magnesium 1.7 mg/dl (1.7-2.4) 09/28/22 06:06 Total Bilirubin 0.8 mg/dl (0.2-1.0) 09/25/22 15:00 AST 20 U/L (13-39) 09/25/22 15:00 ALT 10 U/L (7-52) 09/25/22 15:00 Alkaline Phosphatase 59 U/L (34-104) 09/25/22 15:00 Total Creatine Kinase 43 U/L (30-223) 09/25/22 15:00 Total Protein 6.0 gm/dl (6.0-8.3) 09/25/22 15:00 Albumin 3.3 gm/dl (3.4-5.0) L 09/25/22 15:00 Globulin 2.7 gm/dl (2.5-4.0) 09/25/22 15:00 Albumin/Globulin Ratio 1.2 (0.9-2) 09/25/22 15:00 TSH 2.833 uIu/ml (0.300-4.500) 09/25/22 15:00 Urine Color Yellow 09/25/22 17:10 Urine Appearance Clear (Clear) 09/25/22 17:10 Urine pH 7.0 (4.5-7.5) 09/25/22 17:10 Ur Specific Roy > 1.045 (1.000-1.030) H 09/25/22 17:10 Urine Protein Negative (Negative) 09/25/22 17:10 Urine Glucose (UA) Negative (Negative) 09/25/22 17:10 Urine Ketones Negative (Negative) 09/25/22 17:10 Urine Blood Negative (Negative) 09/25/22 17:10 Urine Nitrite Negative (Negative) 09/25/22 17:10 Urine Bilirubin Negative (Negative) 09/25/22 17:10 Urine Urobilinogen Negative (Negative) 09/25/22 17:10 Ur Leukocyte Esterase Negative (Negative) 09/25/22 17:10 SARS-CoV-2, RNA, NAAT NEGATIVE (NEGATIVE) 09/25/22 17:10 Impressions Chest X-Ray 09/25/22 14:21 XR chest 1V portable HISTORY: weakness COMPARISON: Chest 09/09/2022. FINDINGS: There are poststernotomy changes and a cardiac valve prosthesis again noted. The heart remains mildly enlarged. This mildly tortuous thoracic aorta. The lungs are hyperexpanded with mild apical predominant emphysematous changes. No pneumothorax. No pleural effusion. Interstitial thickening at the lung bases remains unchanged and is likely chronic. Otherwise, no new focal lung consolidations to suggest a pneumonia. No evidence for pulmonary edema. An IVC filter is partially visualized. IMPRESSION: No significant change compared to the prior study. No acute process. ACT 112: Negative or not required by law. Electronically signed by: Sonido Vann M.D. 09/25/2022 2:45 PM Head CTA 09/25/22 14:21 CT angio head wo/w CLINICAL HISTORY: double vision, fall COMPARISON STUDY: Head CT March 21, 2021. TECHNIQUE: Unenhanced and arterial phase images of the head were obtained. Intravenous injection of 100 cc of Optiray 320 IV was uneventful. Sagittal and coronal reconstructions were viewed as well as maximal intensity projections on an independent 3-D workstation. Automated exposure control was utilized for the study. A dose lowering technique was utilized adhering to the principles of ALARA. FINDINGS: No acute intracranial hemorrhage, midline shift or mass effect is present. Ventricular system is stable. Basal cisterns are patent. There are no extra-axial collections. White matter hypodensities are similar to prior study and favor small vessel disease. There are no findings to suggest acute dural sinus thrombosis or acute territorial infarct. Moderate atrophy is noted. There is no acute calvarial fracture. The bilateral M1, M2, A1 and A2 segments are patent. 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 No saccular aneurysms are identified within the head. There is a large right posterior communicating artery. No central vessel occl usion is identified. IMPRESSION: 1. No acute intracranial findings. 2. No central vessel occlusion. No saccular intracranial aneurysm. 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 ACT 112: Negative or not required by law. Electronically signed by: Jose Le M.D. 09/25/2022 4:07 PM Neck CTA 09/25/22 14:21 CT ANGIOGRAPHY OF THE NECK WITH CONTRAST CLINICAL HISTORY: double vision, fall COMPARISON STUDY: No previous studies for comparison. Technique: CT angiography of the carotid and vertebral arteries was obtained using Optiray and 3D reconstruction on an independent workstation. NASCET criteria was utilized. Automated exposure control was utilized for the study. A dose lowering technique was utilized adhering to the principles of ALARA. Findings: No acute cervical spine fracture is identified. There is no cervical lymphadenopathy. The bilateral common carotid, cervical internal carotid and vertebral arteries are patent. There is minimal plaque within the proximal left internal carotid artery. No stenosis within the major vessels of the neck is noted. There is no dissection. Linear densities at the carotid bifurcations are symmetric and likely artifactual. Right vertebral artery is dominant. IMPRESSION: No stenosis or dissection within the bilateral common carotid, cervical internal carotid or vertebral arteries. ACT 112: Negative or not required by law. Electronically signed by: Jose Le M.D. 09/25/2022 4:12 PM Brain MRI 09/25/22 17:32 Exam(s): MRI HEAD W/WO Contrast IV Amt: 6.5ml gadavist EXAM: MR Head Without and With Intravenous Contrast CLINICAL HISTORY: Reason for exam: double vision. TECHNIQUE: Magnetic resonance images of the head/brain without and with intravenous contrast in multiple planes. CONTRAST: Patient received 6.5ml Gadavist of IV contrast COMPARISON: No relevant prior studies available. FINDINGS: Brain: Severe T2/flair signal hyperintensity. No mass. No hemorrhage. No acute infarct. Ventricles: Unremarkable. No ventriculomegaly. Bones/joints: Unremarkable. Sinuses: Unremarkable as visualized. No acute sinusitis. Mastoid air cells: Unremarkable as visualized. No mastoid effusion. Orbits: Unremarkable as visualized. Other findings: IMPRESSION: Severe ischemic microangiopathy Electronically signed by: Jigar Geiger MD 09/25/22 19:57 PM Hospital Course (1) Chronic cerebral ischemia: Rubén Thapa (Fred) is a 87 year-old male with past medical history of HTN, HLD, Permanent Atrial Fibrillation, Valvular Heart Disease s/p Bioprosthetic AVR (2009) and Mitral Valve Repair (2018), Ascending Aortic Aneurysm, Venous Stasis, Pulmonary Nodules, Sigmoid Volvulus s/p Resection, Suprarenal AAA, and a Right Popliteal Artery Aneurysm s/p repair (2022). He presented to the ED due to recurrent falls and double vision. 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 -CTA neck: no stenosis or dissection within bilateral common carotid, cervical internal carotid or vertebral arteries. -MRI Brain: severe ischemic microangiopathy. No acute infarct. - Neurology consulted: given serve ischemic microangiopathy likely secondary to micro infarct to the 3rd nerve - continue clopidogrel - hopeful that could resolve in 6-8 weeks - will need ophthalmology evaluation as an outpatient Recurrent Falls Patient has had multiple recent falls at his apartment at [facility]. The facility has contacted [facility] regarding their concerns of his safety. -Fall precautions - Plan for return to [facility] section for continued rehab Asymptomatic NSVT - Asymptomatic; noted to have a run of 15 beats and another run of 30 beats - Echo from 05/2022 with LVH, LA dilation, RA severely dilated, mild aortic regurgitation, moderate tricuspid/mitral regurgitation - F/u with cardiology as on outpatient Permanent Atrial Fibrillation -rate controlled with rates in the 50s/60s -Continue Xarelto S/P Repair Popliteal Artery Aneurysm -Continue Plavix Hypertension -Continue home lisinopril 5mg Hyperlipidemia -Continue home atorvastatin Sleep Disturbances -Continue home Trazodone Lower Extremity Edema - continue home lasix (2) Diplopia: (3) Atrial fibrillation: (4) Hyperlipidemia: (5) Lower extremity edema: (6) HTN (hypertension), benign: Total Time Total Time Spent Total Time Spent (In Minutes): <30 Discharge Plan Discharge Items Patient Disposition: Transfer Assisted Fac Reason For Visit: DIPLOPIA, RECURRENT FALLS Discharge Diagnosis: Diplopia Activity: Per Instructions section Non-emergency contact: Primary Care Provider Call non-emergency contact if: you have any medication questions and your symptoms worsen Follow-up/Referrals: Jaclyn Hitchcock MD [Primary Care Provider] - Diet: Regular Addtl Attending Provider Instructions: Rubén Thapa (Fred) is a 87 year-old male with past medical history of HTN, HLD, Permanent Atrial Fibrillation, Valvular Heart Disease s/p Bioprosthetic AVR (2009) and Mitral Valve Repair (2018), Ascending Aortic Aneurysm, Venous Stasis, Pulmonary Nodules, Sigmoid Volvulus s/p Resection, Suprarenal AAA, and a Right Popliteal Artery Aneurysm s/p repair (2022). He presented to the ED due to recurrent falls and double vision. 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 -CTA neck: no stenosis or dissection within bilateral common carotid, cervical internal carotid or vertebral arteries. -MRI Brain: severe ischemic microangiopathy. No acute infarct. - Neurology consulted: given serve ischemic microangiopathy likely secondary to micro infarct to the 3rd nerve - continue clopidogrel - hopeful that could resolve in 6-8 weeks - will need ophthalmology evaluation as an outpatient Recurrent Falls Patient has had multiple recent falls at his apartment at [facility]. The facility has contacted [facility] regarding their concerns of his safety. -Fall precautions - Plan for return to [facility] section for continued rehab Asymptomatic NSVT - Asymptomatic; noted to have a run of 15 beats and another run of 30 beats - Echo from 05/2022 with LVH, LA dilation, RA severely dilated, mild aortic regurgitation, moderate tricuspid/mitral regurgitation - F/u with cardiology as on outpatient Permanent Atrial Fibrillation -rate controlled with rates in the 50s/60s -Continue Xarelto S/P Repair Popliteal Artery Aneurysm -Continue Plavix Hypertension -Continue home lisinopril 5mg Hyperlipidemia -Continue home atorvastatin Sleep Disturbances -Continue home Trazodone Lower Extremity Edema - continue home lasix Pending Studies at Discharge: No Stand-Alone Forms: My [facility] Skilled Items Patient informed of condition?: Yes DNR: No Discharge Level of Care: Skilled Communicable Disease: No Discharge Prognosis: Stable Lines: None Urinary Catheter: No Medications and DC Order Prescriptions: Continued Xarelto 20 mg tablet 20 mg PO HS Qty: 90 3RF atorvastatin 20 mg tablet 20 mg PO HS Qty: 90 3RF lisinopril 5 mg tablet 5 mg PO HS Qty: 90 3RF trazodone 50 mg tablet 50 mg PO HS Qty: 30 5RF Rx Instructions: PER PT "ONLY TAKE THIS MED FOR SLEEP". tamsulosin [Flomax] 0.4 mg capsule 0.4 mg PO HS Qty: 30 5RF [id number] Tablet 1 tab PO HS furosemide 20 mg tablet 20 mg PO QAM Rx Instructions: takes at lunch colestipol [Colestid] 1 gram tablet 1 g PO DAILY PRN (Reason: loose stools) finasteride [Proscar] 5 mg tablet 5 mg PO HS clopidogrel 75 mg Tablet 75 mg PO QAM Qty: 90 3RF PreserVision AREDS-2 250-90-40-1 mg Tablet,Chewable 1 tab PO HS Discharge Orders: Discharge Order (Routine); Ordered 09/28/22 Ordered By: Celina Diez Admission Data Admit Date/Time: 09/25/22 20:36 Attending Provider: Jigar David Admit Provider: Christiano Esparza Primary Care Provider: Jaclyn Hitchcock Other Providers: Christiano sEparza ; Marcos Cavazos ; He Funez [facility] Other Interventions: Discharge Summary Assessment (RN) Last Done: 09/28/22 09:54 Supervising Physician Co-Signing Physician Notes I personally examined the patient and verified all knight points of history and exam, discussed case, and agree with decision making with Dr Diez feels up to leaving the hospital vitals noted nad heent nc at mmm breathing unlabored no accessory muscles good effort skin no rashes no pallor or icterus possible third nerve palsy left eye causing diplopia, falls, weaknessappreciate neurology input. PT/OT, dispo today. [facility] to move him to a higher level of care for the short-term, additional PT/OT there. Otherwise as above. Resident Activity Tracking Resident Involvement: Resident Care Provided Care Provided: Adult [facility]
--- NOTE | 2022-09-28 06:56 | Electrocardiogram Report ---
Test Reason : Blood Pressure : / mmHG Vent. Rate : 065 BPM Atrial Rate : 000 BPM P-R Int : 000 ms QRS Dur : 126 ms QT Int : 466 ms P-R-T Axes : 000 -30 238 degrees QTc Int : 484 ms Atrial fibrillation Left axis deviation Right bundle branch block Nonspecific T wave abnormality Abnormal ECG When compared with ECG of 25-SEP-2022 14:47, No significant change Confirmed by Rey Correa ([id number]) on 09/28/2022 6:55:44 AM Referred By: REFERRED SELF Confirmed By:Rey Correa
[2022-09-28 07:01] LABS: Calcium 8.6 mg/dl (8.6-10.3); Est GFR (African American) 92.5 ml/min; Est GFR (Non-African American) 79.8 ml/min; Magnesium 1.7 mg/dl (1.7-2.4)
[2022-09-28] MEDS: FUROSEMIDE 20 MG TAB PO SCH (08:00)
[2022-09-28] MEDS: CLOPIDOGREL BISULFATE 75 MG TAB PO SCH (08:00)
--- NOTE | 2022-09-28 16:02 | Billing Data ---
Date of Service September 28, 2022 Coding Level of Care Code 78294 IN/OBS DISCH 30 MIN/LESS
== END 2022-09-28 10:55 | DRG 123 ==
LOC: ED 13:59 → 2N 20:36 → SUATTDRO 20:36 → 2N 22:03

== ENCOUNTER 2023-09-28 19:02 | Inpatient (IN) ==
--- NOTE | 2023-09-28 19:18 | Emergency Department Note ---
Impression & Plan Chest pain, Atrial fibrillation, Lower extremity edema, Elevated troponin, Anemia, Transaminitis ED Provider Note NAME: AMY DIAZ Jr AGE: 88 SEX: M : 1935 ARRIVES VIA: Walk-In INFORMANT: Patient, Triage note ED PROVIDER(S): Jordon Slade MD CHIEF COMPLAINT: Chest pain MEDICAL DECISION MAKING: Patient presents due to concern for chest pain. No abdominal pain on exam. IV was established and blood work was obtained along with an EKG troponin and chest x-ray. Patient's EKG does show a new left bundle branch block compared to EKG from 1 year prior. Patient's blood work shows mild leukopenia with a white count of 4.4 with hemoglobin 12.5 which is relatively chronic and stable. Platelet count is unremarkable. Kidney function unremarkable. Transaminitis noted with a bilirubin 1.4 AST of 72 and ALT of 68. Patient's abdomen is repalpated and no abdominal pain on exam negative Covarrubias sign. Troponin is positive at 23.6. Given these findings I do believe the patient would benefit from admission at this time. Chest x-ray does show possible pulmonary edema. I did speak with the on-call hospital service Dr. Lemos after informing the patient of the findings and recommendations. Patient was admitted to the medicine service. Discussion w/ other healthcare providers: Dr. Lemos inpatient medicine service Prior /Outside records reviewed: I reviewed a cardiology visit from May 29, [address] Alexis. Patient reportedly had an episode of syncope which was thought to be due to transient bradycardia when on a beta-luis. Decreasing his beta-luis seems to have improved this. Per this plan A-fib with slow ventricular rate was decided have a repeat Holter monitor prior to his next visit. Does have prior history of aortic valve replacement and mitral valve repair. Differential diagnosis: Cardiac ischemia, aortic dissection, pulmonary embolism, pneumothorax, pneumonia, pericarditis, myocarditis, GERD, cholecystitis, pancreatitis, musculoskeletal, as well as other pathologies were considered. Diagnostics, as interpreted by me: ECG: A-fib, ventricular rate of 78 wide QRS, left bundle branch block pattern, left axis deviation, no obvious Sgarbossa criteria. A-fib is old. Patient's left bundle branch block is new from comparison EKG September 27, 2022. Cardiac monitoring: An order was placed for continuous cardiac monitoring. The monitor shows a rate of 75 with irregularly irregular rhythm. Patient was placed on pulse oximetry Medical decision rules: None Imaging studies: I informally interpreted the patient's chest x-ray showed possible pulmonary edema with formal report to follow. HPI: Patient presents due to concern for chest pain. Chest pain has been ongoing over the last week. The patient did recently receive a heart monitor which he was wearing after it was sent in from Dr. Alexis. Patient is followed with Dr. Alexis with cardiology in the past. The patient denies any prior history of stent or bypass. Patient states that what concerned him today is that his pain has been pretty persistent ever since eating lunch and states that it has been in the central lower chest. No falls or trauma. Patient denies any cough or fever. The patient does have some chronic lower extremity swelling right greater than left as the patient does have a prior history of what he self describes as a popliteal stent. Patient does take Lasix for edema. The patient has difficulty giving the pain a character. It is nonradiating and no associated nausea vomiting or diaphoresis. Given its chronicity today patient presented here for further evaluation and treatment. The patient states that during the week he would have episodes greater than 30 minutes. The patient states that his chest pain today occurred while at rest as he was just seated and watching television. Review of the patient's medication list shows that the patient takes Xarelto. PAST MEDICAL HISTORY: See Below PAST SURGICAL HISTORY: See Below SOCIAL HISTORY: See Below HOME MEDICATIONS: See Below ALLERGIES: See Below VITALS: See Below PHYSICAL EXAMINATION: GENERAL: NAD, non-toxic. EYE EXAM: Normal conjunctiva. PERRL, no anisocoria and EOM's grossly intact w/o pain. OROPHARYNX: Moist mucus membranes, grossly normal dentition. NECK: Trachea midline, no stridor. LUNGS: Bibasilar crackles. Normal chest wall mechanics. HEART: NSR, no MRG. ABDOMEN: Abdomen soft, non-tender, no masses, no rebound or guarding. BACK: No CVA TTP. SKIN: No rashes and no bruising. UPPER EXTREMITIES: Upper extremities are grossly normal. LOWER EXTREMITIES: Grossly normal, right greater than left lower extremity edema without calf pain. Likely chronic venous stasis changes, redness noted without calor. Compartments are soft no evidence of crepitus. NEURO EXAM: A&O x3, cranial nerves II-XII grossly intact, normal speech, moves all 4 extremities. Past Med/Surg History Problem List (Updated 09/28/23 @ 21:58 by Jordon Slade MD) Transaminitis (Acute) Anemia (Acute) Elevated troponin (Acute) Chest pain (Acute) Atrial fibrillation, permanent Encounter for immunization Constipation BPH (benign prostatic hypertrophy) Recurrent falls Chronic cerebral ischemia COVID (Acute) Diplopia (Acute) Atrial fibrillation (Chronic) Hyperlipidemia (Chronic) Lower extremity edema (Chronic) Sleep disturbance (Chronic) Pulmonary nodules (Acute) Abdominal pain (Acute) Syncopal episodes (Acute) Valvular heart disease S/P AVR (aortic valve replacement) S/P mitral valve repair Anticoagulant long-term use Loose stools Lower extremity weakness Non-healing skin lesion Encounter for examination following treatment at hospital Fatigue Venous stasis ulcer Preoperative cardiovascular examination 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 following [address] Dr Azul. Sigmoid volvulus (Acute) resolved HTN (hypertension), benign (Chronic) controlled, stable per pt Sensorineural hearing loss of both ears Medical History History of COVID-19 2020, resolved, no symptoms, tested at assisted living facilty and "test was positive" History of blood clots pt unsure about this? Glaucoma Surgical History History of open reduction and internal fixation (ORIF) procedure ankle-pt unsure which side Hx of colonoscopy S/P colon resection 04/01/19 Dr. Andrzej Bellamy- Open sigmoidectomy with colocolostomy, flexible sigmoidoscopy, and transversus abdominus plane (TAP) block S/P repair of ventral hernia X 2 with placement of mesh S/P closure of ileostomy S/P small bowel resection H/O mitral valve repair done in [facility] History of back surgery age 32 History of right cataract surgery History of left cataract surgery History of aortic valve replacement All cardiac surgeries done in [facility]. Follows w/JULITO Baker Family History Mother , age 89 of heart issues Heart disease Hypertension Father , age 82 following complications after a fall Hypertension Denies family history of Ovarian cancer Prostate cancer Myocardial infarction Breast cancer Colorectal cancer Social History Smoking Status: Never smoker Second Hand Exposure: No; Do You Dip or Chew Tobacco: No; Hx Alcohol Use: No Hx Substance Use: No Preferred Language: Israeli Communication Ability: Effective Hearing Ability: Hard of Hearing [employer] Required: No Beliefs That Will Affect Care: None marital status: Single Current Living Situation: Alone Current Living Situation Comment: independent living @ [facility] current occupational status: retired 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 How many Children do You have: 0 Feels Safe at Home: Yes Childhood Exposure to Second-Hand Smoke: No Diet: regular caffeine: No Dental Care, Regularly: Yes Physical Activity Frequency: Does not Exercise Seatbelt Use: always Sunscreen Use: No Assistive Devices: Cane, Glasses and Walker Allergies Allergies Allergy/AdvReac Type Severity Reaction Status Date / Time No Known Allergies Allergy Verified 09/28/23 19:27 Home Meds Home Medications Medication Instructions Recorded Confirmed glukhlfhuyel-qyzfaheh-bkhgvv tablet 1 tab PO HS 08/27/21 09/28/23 vit C 250 mg-E 90 mg-zinc 40 1 tab PO HS 09/25/22 09/28/23 mg-copper 1 oy-jcqbcy-thmiyn chew tablet (PreserVision AREDS-2) Previous Rx's Medication Instructions Recorded clopidogrel 75 mg tablet 75 mg PO QAM #90 tabs 08/30/22 atorvastatin 20 mg tablet 20 mg PO HS #90 tabs 10/22/22 rivaroxaban 20 mg tablet (Xarelto) 20 mg PO HS #90 tabs 10/22/22 tamsulosin 0.4 mg capsule (Flomax) 0.8 mg (2 x 0.4 mg) PO HS #180 caps 03/25/23 sennosides 8.6 mg-docusate sodium See Rx Instructions PO DAILY #30 04/24/23 50 mg tablet (Senokot-S) tabs furosemide 20 mg tablet 20 mg PO QAM #90 tabs 06/02/23 lisinopril 5 mg tablet 5 mg PO HS #90 tabs 08/06/23 trazodone 50 mg tablet 50 mg PO HS #30 tabs 08/14/23 finasteride 5 mg tablet (Proscar) 5 mg PO HS #30 tabs 09/26/23 Results & Data (ED) Vital Signs Vital Signs - 24 hr 09/28/23 19:09 09/28/23 19:25 09/28/23 19:25 Temperature 36.4 C L Temperature Source Temporal Artery Scan Pulse Rate 68 Pulse Rate [Apical] 66 Respiratory Rate 20 18 Respiratory Effort / Characteristics Non-Labored Respiratory Depth Normal Respiratory Pattern Regular Blood Pressure 153/94 H Blood Pressure [Left Arm] 142/100 H Blood Pressure Mean 113 Blood Pressure Mean [Left Arm] 114 Pulse Oximetry 95 93 93 Oxygen Delivery Method Room Air Room Air Room Air Sepsis Recent Fever Within 48 Hours No Sepsis New/Unexplained Change in Mental Status No Sepsis Action Taken by Nursing No Action Required 09/28/23 19:36 09/28/23 21:04 Temperature Temperature Source Pulse Rate 67 Pulse Rate [Apical] 66 Respiratory Rate 18 Respiratory Effort / Characteristics Non-Labored Respiratory Depth Normal Respiratory Pattern Regular Blood Pressure Blood Pressure [Left Arm] 175/105 H Blood Pressure Mean Blood Pressure Mean [Left Arm] 128 Pulse Oximetry 97 Oxygen Delivery Method Room Air Sepsis Recent Fever Within 48 Hours Sepsis New/Unexplained Change in Mental Status Sepsis Action Taken by Retirement Medications Current Medication List: was personally reviewed by me Laboratory Data Attestation: I reviewed the patient's lab results. 09/28/23 19:23 09/28/23 19:23 Lab Results 09/28/23 Range/Units 19:23 WBC 4.47 L (4.8-10.8) K/ul RBC 3.71 L (4.70-6.10) M/uL Hgb 12.5 L (14.0-18.0) g/dl Hct 37.2 L (42.0-52.0) % MCV 100.3 H (80.0-100.0) fL MCH 33.7 (25.0-34.0) pg MCHC 33.6 (32.0-36.0) g/dL RDW Std Deviation 55.2 H (36.4-46.3) fL RDW Coeff of Any 15.0 H (11.5-14.5) % Plt Count 133 (130-400) K/uL MPV 10.4 (9.4-12.4) fL Immature Gran % (Auto) 0.2 % Neut % (Auto) 63.6 % Lymph % (Auto) 23.0 % [place] % (Auto) 10.5 % Eos % (Auto) 2.5 % Baso % (Auto) 0.2 % Neut # (Auto) 2.84 (1.40-6.50) K/uL Lymph # (Auto) 1.03 L (1.20-3.40) K/uL [place] # (Auto) 0.47 (0.11-0.59) K/uL Eos # (Auto) 0.11 (0.00-0.50) K/uL Baso # (Auto) 0.01 (0.00-0.20) K/uL Immature Gran # (Auto) 0.01 (0.01-0.20) K/uL PT 14.9 H (9.0-12.0) Seconds INR 1.4 H (0.9-1.1) APTT 30 (21-31) Seconds PTT Ratio 1.1 Sodium 139 (136-145) mmol/L Potassium 3.9 (3.5-5.1) mmol/L Chloride 105 (98-107) mmol/L Carbon Dioxide 27 (21-32) mmol/L Anion Gap 7 (3-11) BUN 21 (6-23) mg/dl Creatinine 0.98 (0.6-1.4) mg/dl Est Cr Clr Drug Dosing Not Reportable Est GFR ( Amer) 80.6 ml/min Est GFR (Non-Af Amer) 69.5 ml/min BUN/Creatinine Ratio 21.4 H (10-20) Glucose 95 (70-99(Fasting)) mg/dl Calcium 8.8 (8.6-10.3) mg/dl Total Bilirubin 1.4 H (0.2-1.0) mg/dl AST 72 H (13-39) U/L ALT 68 H (7-52) U/L Alkaline Phosphatase 105 H (34-104) U/L Troponin I High Sens 23.6 H (0-20) pg/ml Total Protein 6.5 (6.0-8.3) gm/dl Albumin 3.8 (3.4-5.0) gm/dl Globulin 2.7 (2.5-4.0) gm/dl Albumin/Globulin Ratio 1.4 (0.9-2) Lipase 24 (11-82) U/L Imaging Data Radiologist's Impression: Chest X-Ray 09/28/23 19:27 XR chest 1V portable CLINICAL HISTORY: Chest pain, nonspecific TECHNIQUE: Single frontal radiograph of the chest was obtained. Comparison: Comparison is made to chest radiographs 09/25/2022 FINDINGS: Median sternotomy wires are unchanged. Cardiomegaly is noted. The aortic arch is calcified. Faint bibasilar airspace opacities are seen. Small right pleural effusion. IMPRESSION: Faint bibasilar airspace opacities which may represent atelectasis, pneumonia, and/or aspiration. Small right pleural effusion. ACT 112: Negative or not required by law. Electronically signed by: Gilles Hobbs M.D. 09/28/2023 8:13 PM Discharge Plan Visit Data Chief Complaint: Chest Pain Stated Complaint: CHEST PAIN ED Provider: Jordon Slade Discharge Problem: Chest pain, Atrial fibrillation, Lower extremity edema, Elevated troponin, Anemia, Transaminitis Patient Disposition: Admitted As Inpatient Discharge Instructions Interventions: ED Discharge Assessment Last Done: 09/28/23 21:57 Discharge Problem: Chest pain Qualifiers: Chest pain type: unspecified Qualified Code(s): R07.9 - Chest pain, unspecified Atrial fibrillation Qualifiers: Atrial fibrillation type: unspecified Qualified Code(s): I48.91 - Unspecified atrial fibrillation Anemia Qualifiers: Anemia type: unspecified type Qualified Code(s): D64.9 - Anemia, unspecified
[2023-09-28 19:52] LABS: Basophils # (auto) 0.01 K/uL (0.00-0.20); Basophils % (auto) 0.2 %; Eosinophils # (auto) 0.11 K/uL (0.00-0.50); Eosinophils % (auto) 2.5 %; Hematocrit (blood only) 37.2 % (42.0-52.0); Hemoglobin 12.5 g/dl (14.0-18.0); Immature Granulocytes # (auto) 0.01 K/uL (0.01-0.20); Immature Granulocytes % (auto) 0.2 %; Lymphocytes # (auto) 1.03 K/uL (1.20-3.40); Mean Corpuscular Hemoglobin 33.7 pg (25.0-34.0); Mean Corpuscular Hgb Conc 33.6 g/dL (32.0-36.0); Mean Corpuscular Volume 100.3 fL (80.0-100.0); Mean Platelet Volume 10.4 fL (9.4-12.4); Monocytes # (auto) 0.47 K/uL (0.11-0.59); Monocytes % (auto) 10.5 %; Neutrophils # (auto) 2.84 K/uL (1.40-6.50); Neutrophils % (auto) 63.6 %; Platelet Count 133 K/uL (130-400); RDW Standard Deviation 55.2 fL (36.4-46.3); Red Blood Count 3.71 M/uL (4.70-6.10); White Blood Count 4.47 K/ul (4.8-10.8)
[2023-09-28 20:04] LABS: Alanine Aminotransferase 68 U/L (7-52); Albumin Globulin Ratio 1.4 (0.9-2); Albumin Level 3.8 gm/dl (3.4-5.0); Alkaline Phosphatase 105 U/L (34-104); Anion Gap 7 (3-11); Aspartate Aminotransferase 72 U/L (13-39); BUN Creatinine Ratio 21.4 (10-20); Bilirubin,Total 1.4 mg/dl (0.2-1.0); Blood Urea Nitrogen 21 mg/dl (6-23); Calcium 8.8 mg/dl (8.6-10.3); Carbon Dioxide 27 mmol/L (21-32); Chloride 105 mmol/L (98-107); Est GFR (African American) 80.6 ml/min; Est GFR (Non-African American) 69.5 ml/min; Globulin 2.7 gm/dl (2.5-4.0); Glucose 95 mg/dl (70-99(Fasting)); Lipase 24 U/L (11-82); Potassium 3.9 mmol/L (3.5-5.1); Sodium 139 mmol/L (136-145); Total Protein 6.5 gm/dl (6.0-8.3)
[2023-09-28 20:10] LABS: Troponin I High Sensitivity 23.6 pg/ml (0-20)
[2023-09-28 20:13] LABS: INR 1.4 (0.9-1.1); Partial Thromboplastin Ratio 1.1; Partial Thromboplastin Time 30 Seconds (21-31); Prothrombin Time 14.9 Seconds (9.0-12.0)
--- NOTE | 2023-09-28 20:15 | XRay Report ---
XR chest 1V portable CLINICAL HISTORY: Chest pain, nonspecific TECHNIQUE: Single frontal radiograph of the chest was obtained. Comparison: Comparison is made to chest radiographs 09/25/2022 FINDINGS: Median sternotomy wires are unchanged. Cardiomegaly is noted. The aortic arch is calcified. Faint bib asilar airspace opacities are seen. Small right pleural effusion. IMPRESSION: Faint bibasilar airspace opacities which may represent atelectasis, pneumonia, and/or aspiration. Sma ll right pleural effusion. ACT 112: Negative or not required by law. Electronically signed by: Gilles Hobbs M.D. 09/28/2023 8:13 PM
--- NOTE | 2023-09-28 21:23 | History & Physical Report ---
Date of Service September 28, 2023 Assessment & Plan (1) (HFpEF) heart failure with preserved ejection fraction: (2) Transaminitis: (3) Elevated troponin: (4) Atrial fibrillation, permanent: (5) BPH (benign prostatic hypertrophy): (6) Lower extremity edema: Plan HFpEF exacerbation/lower extremity edema/permanent atrial fibrillation/elevated troponin- The patient will be admitted to telemetry for serial cardiac enzymes, serial EKG's, cardiac rhythm monitoring and a 2-D echocardiogram with Dopplers. Troponin 23.6 upon admission, with follow-up pending Most recent echocardiogram from 05/24/2022 with ejection fraction 60-65%, bioprosthetic aortic valve, moderate mitral regurgitation and tricuspid regurgitation, mild aortic regurgitation Hold oral furosemide 20 mg daily, and give 40 mg IV now, and then 40 mg IV every morning Continue clopidogrel, Xarelto. Hold lisinopril. Abnormal LFTs/transaminitis- Total bilirubin 1.4, AST 72, ALT 68, and alkaline phosphatase 105 Likely hepatic congestion secondary to CHF Repeat laboratories in a.m., if worsening, order imaging at that time BPH- Continue tamsulosin and finasteride Thrombocytopenia- Platelets 133 on admission, with range 125-152 Follow serially CODE STATUS: Full code, as discussed with patient this evening History of Present Illness Chief Complaint: The patient presents to the emergency department with complaint of chest discomfort over the past 24 hours, shortness of breath and lower extremity edema Primary Care Provider: Jaclyn Hitchcock MD The patient is an 88-year-old male with a past medical history including permanent atrial fibrillation, BPH, chronic cerebral ischemia, chronic lower extremity edema, status post AVR, status post mitral valve repair, status post right lower extremity stent, aneurysm of right popliteal artery, hypertension and bilateral sensorineural hearing loss. He presents to the emergency department with mild chest discomfort, shortness of breath with exertion, and lower extremity edema Allergies Allergy/AdvReac Type Severity Reaction Status Date / Time No Known Allergies Allergy Verified 09/28/23 19:27 Home Medications Medication Instructions Recorded Confirmed Type qtigpixvbunm-djmdttpl-gyiyhn tablet 1 tab PO HS 08/27/21 09/28/23 History clopidogrel 75 mg tablet 75 mg PO QAM #90 tabs 08/30/22 09/28/23 Rx vit C 250 mg-E 90 mg-zinc 40 1 tab PO HS 09/25/22 09/28/23 History mg-copper 1 zp-regrhv-vadffl chew tablet (PreserVision AREDS-2) atorvastatin 20 mg tablet 20 mg PO HS #90 tabs 10/22/22 09/28/23 Rx rivaroxaban 20 mg tablet (Xarelto) 20 mg PO HS #90 tabs 10/22/22 09/28/23 Rx tamsulosin 0.4 mg capsule (Flomax) 0.8 mg (2 x 0.4 mg) PO HS #180 caps 03/25/23 09/28/23 Rx sennosides 8.6 mg-docusate sodium See Rx Instructions PO DAILY #30 04/24/23 09/28/23 Rx 50 mg tablet (Senokot-S) tabs furosemide 20 mg tablet 20 mg PO QAM #90 tabs 06/02/23 09/28/23 Rx lisinopril 5 mg tablet 5 mg PO HS #90 tabs 08/06/23 09/28/23 Rx trazodone 50 mg tablet 50 mg PO HS #30 tabs 08/14/23 09/28/23 Rx finasteride 5 mg tablet (Proscar) 5 mg PO HS #30 tabs 09/26/23 09/28/23 Rx Past Med/Surg History Problem List (Updated 09/28/23 @ 22:19 by Pito Hennessy MD) (HFpEF) heart failure with preserved ejection fraction Transaminitis (Acute) Anemia (Acute) Elevated troponin (Acute) Chest pain (Acute) Atrial fibrillation, permanent Encounter for immunization Constipation BPH (benign prostatic hypertrophy) Recurrent falls Chronic cerebral ischemia COVID (Acute) Diplopia (Acute) Atrial fibrillation (Chronic) Hyperlipidemia (Chronic) Lower extremity edema (Chronic) Sleep disturbance (Chronic) Pulmonary nodules (Acute) Abdominal pain (Acute) Syncopal episodes (Acute) Valvular heart disease S/P AVR (aortic valve replacement) S/P mitral valve repair Anticoagulant long-term use Loose stools Lower extremity weakness Non-healing skin lesion Encounter for examination following treatment at hospital Fatigue Venous stasis ulcer Preoperative cardiovascular examination 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 following [address] Azul. Sigmoid volvulus (Acute) resolved HTN (hypertension), benign (Chronic) controlled, stable per pt Sensorineural hearing loss of both ears Medical History History of COVID-19 2020, resolved, no symptoms, tested at assisted living facilty and "test was positive" History of blood clots pt unsure about this? Glaucoma Surgical History History of open reduction and internal fixation (ORIF) procedure ankle-pt unsure which side Hx of colonoscopy S/P colon resection 04/01/19 Dr. Andrzej Bellamy- Open sigmoidectomy with colocolostomy, flexible sigmoidoscopy, and transversus abdominus plane (TAP) block S/P repair of ventral hernia X 2 with placement of mesh S/P closure of ileostomy S/P small bowel resection H/O mitral valve repair done in [facility] History of back surgery age 32 History of right cataract surgery History of left cataract surgery History of aortic valve replacement All cardiac surgeries done in [place]. 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 How many Children do You have: 0 Feels Safe at Home: Yes Childhood Exposure to Second-Hand Smoke: No Diet: regular caffeine: No Dental Care, Regularly: Yes Physical Activity Frequency: Does not Exercise Seatbelt Use: always Sunscreen Use: No Assistive Devices: Cane, Glasses and Walker Review of Systems Review of Systems: The patient denies palpitations, cough, sore throat, fevers, chills, sweats, weight change, fatigue, nausea, vomiting, diarrhea , constipation, abdominal pain, pelvic pain, blood in urine or stool, dysuria, urinary frequency or urgency, lightheadedness, dizziness, headache, memory loss, loss of consciousness, rash, abnormal bruising or bleeding, imbalance, focal weakness, numbness or tingling in arms or legs, generalized arthralgias or myalgias, back or neck pain, or night sweats. The review of systems is otherwise negative other than for that already noted above, and at least 10 systems have been reviewed. Physical Exam Physical Exam: The patient is awake, alert and oriented 3, well developed and well nourished, normocephalic and atraumatic, lying in bed and in no acute distress. HEENT--PERRL, EOMI, mucous membranes and oropharynx normal Neck--supple. No JVD. No bruits. Thyroid normal, trachea midline, no adenopathy. Heart--normal S1 and S2. No murmurs, rubs or gallops. Lungs--crackles at the bases bilaterally. No respiratory distress, no accessory muscle use. Abdomen--normal bowel sounds and soft. Nontender. Nondistended, no hernias or masses, no organomegaly. Extremities-right lower extremity 3+ pitting edema. Left lower extremity 2+ pitting edema Dermatologic--normal skin turgor, normal color, no abnormal lymph nodes, no rash. Neurologic--cranial nerves II through XII grossly intact. Rheumatologic--normal range of motion. Psychiatric--normal affect. Results & Data Results & Data Vital Signs (Past 12 Hours) Vital Signs Temp Pulse Pulse Resp BP BP Pulse Ox 09/28/23 19:36 67 09/28/23 19:25 66 18 142/100 H 93 09/28/23 19:25 93 09/28/23 19:09 36.4 C L 68 20 153/94 H 95 O2 Del Method 09/28/23 19:36 09/28/23 19:25 Room Air 09/28/23 19:25 Room Air 09/28/23 19:09 Room Air Laboratory Results Laboratory Results WBC 4.47 K/ul (4.8-10.8) L 09/28/23 19:23 RBC 3.71 M/uL (4.70-6.10) L 09/28/23 19:23 Hgb 12.5 g/dl (14.0-18.0) L 09/28/23 19:23 Hct 37.2 % (42.0-52.0) L 09/28/23 19:23 MCV 100.3 fL (80.0-100.0) H 09/28/23 19:23 MCH 33.7 pg (25.0-34.0) 09/28/23 19:23 MCHC 33.6 g/dL (32.0-36.0) 09/28/23 19:23 RDW Std Deviation 55.2 fL (36.4-46.3) H 09/28/23 19:23 RDW Coeff of Any 15.0 % (11.5-14.5) H 09/28/23 19:23 Plt Count 133 K/uL (130-400) 09/28/23 19:23 MPV 10.4 fL (9.4-12.4) 09/28/23 19:23 Immature Gran % (Auto) 0.2 % 09/28/23 19:23 Neut % (Auto) 63.6 % 09/28/23 19:23 Lymph % (Auto) 23.0 % 09/28/23 19:23 Bradford % (Auto) 10.5 % 09/28/23 19:23 Eos % (Auto) 2.5 % 09/28/23 19:23 Baso % (Auto) 0.2 % 09/28/23 19:23 Neut # (Auto) 2.84 K/uL (1.40-6.50) 09/28/23 19:23 Lymph # (Auto) 1.03 K/uL (1.20-3.40) L 09/28/23 19:23 Bradford # (Auto) 0.47 K/uL (0.11-0.59) 09/28/23 19:23 Eos # (Auto) 0.11 K/uL (0.00-0.50) 09/28/23 19:23 Baso # (Auto) 0.01 K/uL (0.00-0.20) 09/28/23 19:23 Immature Gran # (Auto) 0.01 K/uL (0.01-0.20) 09/28/23 19:23 PT 14.9 Seconds (9.0-12.0) H 09/28/23 19:23 INR 1.4 (0.9-1.1) H 09/28/23 19:23 APTT 30 Seconds (21-31) 09/28/23 19:23 PTT Ratio 1.1 09/28/23 19:23 Sodium 139 mmol/L (136-145) 09/28/23 19:23 Potassium 3.9 mmol/L (3.5-5.1) 09/28/23 19:23 Chloride 105 mmol/L (98-107) 09/28/23 19:23 Carbon Dioxide 27 mmol/L (21-32) 09/28/23 19:23 Anion Gap 7 (3-11) 09/28/23 19:23 BUN 21 mg/dl (6-23) 09/28/23 19:23 Creatinine 0.98 mg/dl (0.6-1.4) 09/28/23 19:23 Est Cr Clr Drug Dosing Not Reportable 09/28/23 19:23 Est GFR ( Amer) 80.6 ml/min 09/28/23 19:23 Est GFR (Non-Af Amer) 69.5 ml/min 09/28/23 19:23 BUN/Creatinine Ratio 21.4 (10-20) H 09/28/23 19:23 Glucose 95 mg/dl (70-99(Fasting)) 09/28/23 19:23 Calcium 8.8 mg/dl (8.6-10.3) 09/28/23 19:23 Total Bilirubin 1.4 mg/dl (0.2-1.0) H 09/28/23 19:23 AST 72 U/L (13-39) H 09/28/23 19:23 ALT 68 U/L (7-52) H 09/28/23 19:23 Alkaline Phosphatase 105 U/L (34-104) H 09/28/23 19:23 Troponin I High Sens 23.6 pg/ml (0-20) H 09/28/23 19:23 Total Protein 6.5 gm/dl (6.0-8.3) 09/28/23 19:23 Albumin 3.8 gm/dl (3.4-5.0) 09/28/23 19:23 Globulin 2.7 gm/dl (2.5-4.0) 09/28/23 19:23 Albumin/Globulin Ratio 1.4 (0.9-2) 09/28/23 19:23 Lipase 24 U/L (11-82) 09/28/23 19:23 Impressions Chest X-Ray 09/28/23 19:27 XR chest 1V portable CLINICAL HISTORY: Chest pain, nonspecific TECHNIQUE: Single frontal radiograph of the chest was obtained. Comparison: Comparison is made to chest radiographs 09/25/2022 FINDINGS: Median sternotomy wires are unchanged. Cardiomegaly is noted. The aortic arch is calcified. Faint bibasilar airspace opacities are seen. Small right pleural effusion. IMPRESSION: Faint bibasilar airspace opacities which may represent atelectasis, pneumonia, and/or aspiration. Small right pleural effusion. ACT 112: Negative or not required by law. Electronically signed by: Gilles Hobbs M.D. 09/28/2023 8:13 PM Code Status & VTE Plan Code Status Full code VTE Prophylaxis Plan VTE Prophylaxis will be ordered: Yes PG Care Time/CCT Total # of Minutes Spent Total Time Spent with Patient: Total time spent is greater than 50% in coordination of care (as documented) at patient's floor/unit and/or counseling patient: Coding Level of Care Code 47866 INT INP/OBS CARE 375MIN Diagnoses (HFpEF) heart failure with preserved ejection fraction I50.30 Transaminitis R74.01 Elevated troponin R79.89 Atrial fibrillation, permanent I48.21 BPH (benign prostatic hypertrophy) N40.0 Lower extremity edema R60.0
[2023-09-28] MEDS: DOCUSATE SODIUM 100 MG CAP PO ONE (21:54)
[2023-09-28] MEDS: RIVAROXABAN 20 MG TAB PO ONE (21:54)
[2023-09-28] MEDS: TAMSULOSIN HCL 0.4 MG CAP PO ONE (21:54)
[2023-09-28] MEDS: traZODone HCL 50 MG TAB PO ONE (21:54)
[2023-09-28] MEDS: FUROSEMIDE 40 MG/4 ML VIAL IV ONE (21:55)
[2023-09-28] MEDS: FINASTERIDE 5 MG TAB PO STA (21:55)
[2023-09-28] MEDS: ATORVASTATIN 20 MG TAB PO STA (21:55)
[2023-09-28] MEDS ORDERED: ACETAMINOPHEN 325 MG TAB PO PRN (21:57)
[2023-09-28] MEDS ORDERED: ONDANSETRON INJ 2 MG/ML 2 ML VIAL IV PRN (21:57)
[2023-09-28] MEDS: POTASSIUM CHLORIDE CRTAB 20 MEQ TABCR PO STA (23:13)
[2023-09-29 06:28] LABS: Basophils # (auto) 0.01 K/uL (0.00-0.20); Basophils % (auto) 0.2 %; Eosinophils # (auto) 0.13 K/uL (0.00-0.50); Eosinophils % (auto) 2.9 %; Hematocrit (blood only) 37.7 % (42.0-52.0); Hemoglobin 12.5 g/dl (14.0-18.0); Immature Granulocytes # (auto) 0.02 K/uL (0.01-0.20); Immature Granulocytes % (auto) 0.4 %; Lymphocytes # (auto) 1.15 K/uL (1.20-3.40); Lymphocytes % (auto) 25.7 %; Mean Corpuscular Hemoglobin 33.7 pg (25.0-34.0); Mean Corpuscular Hgb Conc 33.2 g/dL (32.0-36.0); Mean Corpuscular Volume 101.6 fL (80.0-100.0); Mean Platelet Volume 10.5 fL (9.4-12.4); Monocytes # (auto) 0.52 K/uL (0.11-0.59); Monocytes % (auto) 11.6 %; Neutrophils # (auto) 2.64 K/uL (1.40-6.50); Neutrophils % (auto) 59.2 %; Platelet Count 112 K/uL (130-400); RDW Coefficient of Variation 14.6 % (11.5-14.5); RDW Standard Deviation 54.7 fL (36.4-46.3); Red Blood Count 3.71 M/uL (4.70-6.10); White Blood Count 4.47 K/ul (4.8-10.8)
[2023-09-29 06:39] LABS: Albumin Globulin Ratio 1.5 (0.9-2); Albumin Level 3.5 gm/dl (3.4-5.0); BUN Creatinine Ratio 19.8 (10-20); Bilirubin,Total 1.5 mg/dl (0.2-1.0); Calcium 8.3 mg/dl (8.6-10.3); Creatinine Clr Calc Pharmacy 53.7 ml/min; Est GFR (African American) 88.1 ml/min; Globulin 2.4 gm/dl (2.5-4.0); Magnesium 1.8 mg/dl (1.7-2.4); Total Protein 5.9 gm/dl (6.0-8.3)
[2023-09-29] MEDS: CLOPIDOGREL BISULFATE 75 MG TAB PO SCH (08:22)
[2023-09-29] MEDS: FUROSEMIDE 40 MG/4 ML VIAL IV SCH (08:23)
--- NOTE | 2023-09-29 12:48 | Hospitalist Progress Note ---
Date of Service September 29, 2023 Assessment & Plan (1) (HFpEF) heart failure with preserved ejection fraction: (2) Transaminitis: (3) Elevated troponin: (4) Atrial fibrillation, permanent: (5) BPH (benign prostatic hypertrophy): (6) Lower extremity edema: Plan HFpEF exacerbation Patient admitted to the hospital on account of worsening shortness of breath and leg edema The patient will be admitted to telemetry for serial cardiac enzymes, serial EKG's, cardiac rhythm monitoring and a 2-D echocardiogram with Dopplers. Most recent echocardiogram from 05/24/2022 with ejection fraction 60-65%, bioprosthetic aortic valve, moderate mitral regurgitation and tricuspid regurgitation, mild aortic regurgitation Hold oral furosemide 20 mg daily, and give 40 mg IV now, and then 40 mg IV every morning Continue clopidogrel, Xarelto. Hold lisinopril. Monitor input and output, daily weights. Abnormal LFTs/transaminitis- Total bilirubin 1.4, AST 72, ALT 68, and alkaline phosphatase 105 Likely hepatic congestion secondary to CHF Continue diuresis as above BPH- Continue tamsulosin and finasteride Thrombocytopenia- Platelets 133 on admission, with range 125-152 Follow serially Permanent atrial fibrillation Rate is under good control Continue Xarelto CODE STATUS: Full code, as discussed with patient this evening Admission and Anticipated Discharge Date Admission Date: September 28, 2023 Subjective Patient seen and examined, he feels about the same Review of Systems Review of Systems: All systems reviewed are negative, apart from the ones contained in the history. Physical Exam Physical Exam: The patient is awake, alert and oriented 3, well developed and well nourished, normocephalic and atraumatic, lying in bed and in no acute distress. HEENT--PERRL, EOMI, mucous membranes and oropharynx mildly dry Neck--supple. No JVD. No bruits. Thyroid normal, trachea midline, no adenopathy. Heart--normal S1 and S2. Systolic ejection murmur Lungs--clear bilaterally, no respiratory distress, no accessory muscle use. Abdomen--normal bowel sounds and soft. Extremities--no cyanosis or clubbing. Trace bilateral leg edema Dermatologic--normal skin turgor, normal color, no abnormal lymph nodes, no rash. Neurologic--cranial nerves II through XII grossly intact. Rheumatologic--normal range of motion. Psychiatric--normal affect. Results & Data Results & Data Vital Signs (Past 12 Hours) Vital Signs Temp Pulse Resp BP Pulse Ox O2 Del Method O2 Flow Rate 09/29/23 12:08 97.5 F L 77 17 128/89 99 Nasal Cannula 3.0 09/29/23 08:00 Nasal Cannula 4 09/29/23 07:53 97.3 F L 53 L 19 151/95 H 98 Nasal Cannula 4.0 09/29/23 01:40 97.3 F L 75 18 160/110 H 92 Nasal Cannula PG Care Time/CCT Total # of Minutes Spent Total Time Spent with Patient: Total time spent is greater than 50% in coordination of care (as documented) at patient's floor/unit and/or counseling patient: Coding Level of Care Code 80512 SUB INP/OBS CARE 2/35MIN Diagnoses (HFpEF) heart failure with preserved ejection fraction I50.30 Transaminitis R74.01 Elevated troponin R79.89 Atrial fibrillation, permanent I48.21 BPH (benign prostatic hypertrophy) N40.0 Lower extremity edema R60.0 Time Spent (min) 35
--- NOTE | 2023-09-29 14:14 | XCELERA ---
[id number]
--- NOTE | 2023-09-29 15:58 | Electrocardiogram Report ---
Test Reason : Blood Pressure : / mmHG Vent. Rate : 078 BPM Atrial Rate : 000 BPM P-R Int : 000 ms QRS Dur : 178 ms QT Int : 504 ms P-R-T Axes : 000 -57 096 degrees QTc Int : 574 ms Atrial fibrillation Left axis deviation Left bundle branch block Abnormal ECG When compared with ECG of 29-MAY-2023 14:17, (unconfirmed) Criteria for Inferior infarct are no longer Present Confirmed by Keenan Sepulveda ([id number]) on 09/29/2023 3:58:26 PM Referred By: REFERRED SELF Confirmed By:Johny Sepulveda
--- NOTE | 2023-09-29 16:05 | Electrocardiogram Report ---
Test Reason : Blood Pressure : / mmHG Vent. Rate : 059 BPM Atrial Rate : 061 BPM P-R Int : 000 ms QRS Dur : 136 ms QT Int : 540 ms P-R-T Axes : 000 -65 114 degrees QTc Int : 534 ms Atrial fibrillation Left axis deviation Left bundle branch block Abnormal ECG When compared with ECG of 28-SEP-2023 19:17, (unconfirmed) QRS duration has decreased Confirmed by Keenan Sepulveda ([id number]) on 09/29/2023 4:05:04 PM Referred By: REFERRED SELF Confirmed By:Johny Sepulveda
[2023-09-29] MEDS: RIVAROXABAN 20 MG TAB PO SCH (16:49)
[2023-09-29] MEDS: DOCUSATE SODIUM/SENNA 50/8.6MG TAB PO SCH (20:15)
[2023-09-29] MEDS: ATORVASTATIN 20 MG TAB PO SCH (20:16)
[2023-09-29] MEDS: traZODone HCL 50 MG TAB PO SCH (20:16)
[2023-09-29] MEDS: CEROVITE ADV FORMULA TAB PO SCH (20:16)
[2023-09-29] MEDS: FINASTERIDE 5 MG TAB PO SCH (20:16)
[2023-09-29] MEDS: TAMSULOSIN HCL 0.4 MG CAP PO SCH (20:16)
[2023-09-29] MEDS ORDERED: NON-FORMULARY MEDICATION (Vit C,E-Zn-Coppr-Lutein-Zeaxan [Preservision Areds-2] 250-90-40- PO SCH (21:00)
[2023-09-30 06:31] LABS: Hematocrit (blood only) 37.5 % (42.0-52.0); Hemoglobin 12.2 g/dl (14.0-18.0); Mean Corpuscular Hemoglobin 32.6 pg (25.0-34.0); Mean Corpuscular Volume 100.3 fL (80.0-100.0); Red Blood Count 3.74 M/uL (4.70-6.10); White Blood Count 4.73 K/ul (4.8-10.8)
[2023-09-30 06:32] LABS: Eosinophils # (auto) 0.14 K/uL (0.00-0.50); Immature Granulocytes # (auto) 0.02 K/uL (0.01-0.20); Immature Granulocytes % (auto) 0.4 %; Lymphocytes % (auto) 21.1 %; Mean Corpuscular Hgb Conc 32.5 g/dL (32.0-36.0); Mean Platelet Volume 10.1 fL (9.4-12.4); Monocytes # (auto) 0.59 K/uL (0.11-0.59); Monocytes % (auto) 12.5 %; Neutrophils # (auto) 2.98 K/uL (1.40-6.50); Platelet Count 123 K/uL (130-400); RDW Coefficient of Variation 14.7 % (11.5-14.5); RDW Standard Deviation 53.5 fL (36.4-46.3)
[2023-09-30 06:51] LABS: Albumin Globulin Ratio 1.4 (0.9-2); Albumin Level 3.3 gm/dl (3.4-5.0); BUN Creatinine Ratio 24.4 (10-20); Bilirubin,Total 1.4 mg/dl (0.2-1.0); Calcium 8.7 mg/dl (8.6-10.3); Creatinine Clr Calc Pharmacy 58.6 ml/min; Est GFR (African American) 92.8 ml/min; Est GFR (Non-African American) 80.1 ml/min; Globulin 2.3 gm/dl (2.5-4.0); Magnesium 1.8 mg/dl (1.7-2.4); Total Protein 5.6 gm/dl (6.0-8.3)
--- NOTE | 2023-09-30 10:48 | Electrocardiogram Report ---
Test Reason : Blood Pressure : / mmHG Vent. Rate : 075 BPM Atrial Rate : 071 BPM P-R Int : 000 ms QRS Dur : 178 ms QT Int : 490 ms P-R-T Axes : 080 -70 104 degrees QTc Int : 547 ms Atrial fibrillation Left axis deviation Left bundle branch block Abnormal ECG When compared with ECG of 29-SEP-2023 05:41, QRS duration has increased Confirmed by Keenan Sepulveda ([id number]) on 09/30/2023 10:48:16 AM Referred By: REFERRED SELF Confirmed By:Johny Sepulveda
--- NOTE | 2023-09-30 11:54 | Hospitalist Progress Note ---
Date of Service September 30, 2023 Assessment & Plan (1) (HFpEF) heart failure with preserved ejection fraction: (2) Transaminitis: (3) Elevated troponin: (4) Atrial fibrillation, permanent: (5) BPH (benign prostatic hypertrophy): (6) Lower extremity edema: Plan HFpEF exacerbation Patient admitted to the hospital on account of worsening shortness of breath and leg edema The patient will be admitted to telemetry for serial cardiac enzymes, serial EKG's, cardiac rhythm monitoring and a 2-D echocardiogram with Dopplers. Most recent echocardiogram from 05/24/2022 with ejection fraction 60-65%, bioprosthetic aortic valve, moderate mitral regurgitation and tricuspid regurgitation, mild aortic regurgitation Hold oral furosemide 20 mg daily, and give 40 mg IV now, and then 40 mg IV every morning Continue clopidogrel, Xarelto. Hold lisinopril. Monitor input and output, daily weights. Abnormal LFTs/transaminitis- Likely hepatic congestion secondary to CHF Continue diuresis as above Some improvement in liver function following diuresis. BPH- Continue tamsulosin and finasteride Thrombocytopenia- Platelets 133 on admission, with range 125-152 Follow serially Permanent atrial fibrillation Rate is under good control Continue Xarelto CODE STATUS: Full code, as discussed with patient this evening Hopefully discharge in next 24 to 48 hours Admission and Anticipated Discharge Date Admission Date: September 28, 2023 Subjective Patient seen and examined, States shortness of breath has improved Review of Systems Review of Systems: All systems reviewed are negative, apart from the ones contained in the history. Physical Exam Physical Exam: The patient is awake, alert and oriented 3, well developed and well nourished, normocephalic and atraumatic, lying in bed and in no acute distress. HEENT--PERRL, EOMI, mucous membranes and oropharynx mildly dry Neck--supple. No JVD. No bruits. Thyroid normal, trachea midline, no adenopathy. Heart--normal S1 and S2. Systolic ejection murmur Lungs--clear bilaterally, no respiratory distress, no accessory muscle use. Abdomen--normal bowel sounds and soft. Extremities--no cyanosis or clubbing. Trace bilateral leg edema Dermatologic--normal skin turgor, normal color, no abnormal lymph nodes, no rash. Neurologic--cranial nerves II through XII grossly intact. Rheumatologic--normal range of motion. Psychiatric--normal affect. Results & Data Results & Data Vital Signs (Past 12 Hours) Vital Signs Temp Pulse Resp BP BP Pulse Ox O2 Del Method 09/30/23 07:20 97.9 F 65 19 151/93 H 91 Room Air 09/30/23 03:11 98.2 F 70 18 157/102 H 95 Room Air 09/30/23 00:22 Room Air PG Care Time/CCT Total # of Minutes Spent Total Time Spent with Patient: Total time spent is greater than 50% in coordination of care (as documented) at patient's floor/unit and/or counseling patient: Coding Level of Care Code 69012 SUB INP/OBS CARE 2/35MIN Diagnoses (HFpEF) heart failure with preserved ejection fraction I50.30 Transaminitis R74.01 Elevated troponin R79.89 Atrial fibrillation, permanent I48.21 BPH (benign prostatic hypertrophy) N40.0 Lower extremity edema R60.0 Time Spent (min) 35
[2023-10-01 07:08] LABS: Basophils # (auto) 0.01 K/uL (0.00-0.20); Basophils % (auto) 0.2 %; Eosinophils # (auto) 0.16 K/uL (0.00-0.50); Eosinophils % (auto) 3.4 %; Hematocrit (blood only) 37.4 % (42.0-52.0); Hemoglobin 12.3 g/dl (14.0-18.0); Immature Granulocytes # (auto) 0.01 K/uL (0.01-0.20); Immature Granulocytes % (auto) 0.2 %; Lymphocytes # (auto) 1.31 K/uL (1.20-3.40); Lymphocytes % (auto) 28.2 %; Mean Corpuscular Hemoglobin 33.1 pg (25.0-34.0); Mean Corpuscular Hgb Conc 32.9 g/dL (32.0-36.0); Mean Corpuscular Volume 100.5 fL (80.0-100.0); Mean Platelet Volume 9.7 fL (9.4-12.4); Monocytes # (auto) 0.58 K/uL (0.11-0.59); Monocytes % (auto) 12.5 %; Neutrophils # (auto) 2.58 K/uL (1.40-6.50); Neutrophils % (auto) 55.5 %; Platelet Count 115 K/uL (130-400); RDW Coefficient of Variation 14.7 % (11.5-14.5); RDW Standard Deviation 54.7 fL (36.4-46.3); Red Blood Count 3.72 M/uL (4.70-6.10); White Blood Count 4.65 K/ul (4.8-10.8)
[2023-10-01 07:20] LABS: Albumin Globulin Ratio 1.4 (0.9-2); Albumin Level 3.3 gm/dl (3.4-5.0); BUN Creatinine Ratio 26.7 (10-20); Bilirubin,Total 1.4 mg/dl (0.2-1.0); Calcium 8.8 mg/dl (8.6-10.3); Creatinine Clr Calc Pharmacy 52.4 ml/min; Est GFR (African American) 89.3 ml/min; Est GFR (Non-African American) 77.1 ml/min; Globulin 2.4 gm/dl (2.5-4.0); Magnesium 1.8 mg/dl (1.7-2.4); Potassium 4.2 mmol/L (3.5-5.1); Total Protein 5.7 gm/dl (6.0-8.3)
--- NOTE | 2023-10-01 10:59 | Hospitalist Progress Note ---
Date of Service October 01, 2023 Assessment & Plan (1) (HFpEF) heart failure with preserved ejection fraction: (2) Transaminitis: (3) Elevated troponin: (4) Atrial fibrillation, permanent: (5) BPH (benign prostatic hypertrophy): (6) Lower extremity edema: Plan HFpEF exacerbation Patient admitted to the hospital on account of worsening shortness of breath and leg edema The patient will be admitted to telemetry for serial cardiac enzymes, serial EKG's, cardiac rhythm monitoring and a 2-D echocardiogram with Dopplers. Most recent echocardiogram from 05/24/2022 with ejection fraction 60-65%, bioprosthetic aortic valve, moderate mitral regurgitation and tricuspid regurgitation, mild aortic regurgitation Hold oral furosemide 20 mg daily, and give 40 mg IV now, and then 40 mg IV every morning He is making good urine, has lost about 5 pounds of weight since his admission September 29, 2023 Continue clopidogrel, Xarelto. Hold lisinopril. Monitor input and output, daily weights. Abnormal LFTs/transaminitis- Likely hepatic congestion secondary to CHF Continue diuresis as above Some improvement in liver function following diuresis. BPH- Continue tamsulosin and finasteride Thrombocytopenia- Platelets 133 on admission, with range 125-152 Follow serially Permanent atrial fibrillation Rate is under good control Continue Xarelto CODE STATUS: Full code, Hopefully discharge in next 24 to 48 hours Admission and Anticipated Discharge Date Admission Date: September 28, 2023 Subjective Patient seen and examined, States shortness of breath has improved Review of Systems Review of Systems: All systems reviewed are negative, apart from the ones contained in the history. Physical Exam Physical Exam: The patient is awake, alert and oriented 3, well developed and well nourished, normocephalic and atraumatic, lying in bed and in no acute distress. HEENT--PERRL, EOMI, mucous membranes and oropharynx mildly dry Neck--supple. No JVD. No bruits. Thyroid normal, trachea midline, no adenopathy. Heart--normal S1 and S2. Systolic ejection murmur Lungs--clear bilaterally, no respiratory distress, no accessory muscle use. Abdomen--normal bowel sounds and soft. Extremities--no cyanosis or clubbing. Trace bilateral leg edema Dermatologic--normal skin turgor, normal color, no abnormal lymph nodes, no rash. Neurologic--cranial nerves II through XII grossly intact. Rheumatologic--normal range of motion. Psychiatric--normal affect. Results & Data Results & Data Vital Signs (Past 12 Hours) Vital Signs Temp Pulse Pulse Resp BP BP Pulse Ox 10/01/23 10:51 10/01/23 08:00 98.2 F 58 L 19 155/93 H 94 10/01/23 03:15 98.1 F 59 L 17 125/72 92 10/01/23 01:27 66 09/30/23 23:18 98.2 F 69 17 104/66 94 O2 Del Method 10/01/23 10:51 Room Air 10/01/23 08:00 Room Air 10/01/23 03:15 Room Air 10/01/23 01:27 09/30/23 23:18 Room Air PG Care Time/CCT Total # of Minutes Spent Total Time Spent with Patient: Total time spent is greater than 50% in coordination of care (as documented) at patient's floor/unit and/or counseling patient: Coding Level of Care Code 19001 SUB INP/OBS CARE 2/35MIN Diagnoses (HFpEF) heart failure with preserved ejection fraction I50.30 Transaminitis R74.01 Elevated troponin R79.89 Atrial fibrillation, permanent I48.21 BPH (benign prostatic hypertrophy) N40.0 Lower extremity edema R60.0 Time Spent (min) 35
[2023-10-02] MEDS: MAGNESIUM SULFATE / D5W 1 GM/100 ML BAG IV ONE (06:24)
[2023-10-02 07:36] LABS: BUN Creatinine Ratio 27.4 (10-20); Calcium 8.7 mg/dl (8.6-10.3); Est GFR (African American) 91.9 ml/min; Est GFR (Non-African American) 79.3 ml/min; Magnesium 1.9 mg/dl (1.7-2.4); Potassium 3.8 mmol/L (3.5-5.1)
--- NOTE | 2023-10-02 13:08 | Hospitalist Progress Note ---
Date of Service October 02, 2023 Assessment & Plan (1) (HFpEF) heart failure with preserved ejection fraction: (2) Transaminitis: (3) Elevated troponin: (4) Atrial fibrillation, permanent: (5) BPH (benign prostatic hypertrophy): (6) Lower extremity edema: Plan HFpEF exacerbation Patient admitted to the hospital on account of worsening shortness of breath and leg edema The patient will be admitted to telemetry for serial cardiac enzymes, serial EKG's, cardiac rhythm monitoring and a 2-D echocardiogram with Dopplers. Most recent echocardiogram from 05/24/2022 with ejection fraction 60-65%, bioprosthetic aortic valve, moderate mitral regurgitation and tricuspid regurgitation, mild aortic regurgitation Hold oral furosemide 20 mg daily, and give 40 mg IV now, and then 40 mg IV every morning He is making good urine, has lost about 5 pounds of weight since his admission September 29, 2023 Continue clopidogrel, Xarelto. Hold lisinopril. Monitor input and output, daily weights. Abnormal LFTs/transaminitis- Likely hepatic congestion secondary to CHF Continue diuresis as above Some improvement in liver function following diuresis. 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 Physical Exam Physical Exam: The patient is awake, alert and oriented 3, well developed and well nourished, normocephalic and atraumatic, lying in bed and in no acute distress. HEENT--PERRL, EOMI, mucous membranes and oropharynx mildly dry Neck--supple. No JVD. No bruits. Thyroid normal, trachea midline, no adenopathy. Heart--normal S1 and S2. Systolic ejection murmur Lungs--Mild bibasilar crackles Abdomen--normal bowel sounds and soft. Extremities--no cyanosis or clubbing. Trace bilateral leg edema Dermatologic--normal skin turgor, normal color, no abnormal lymph nodes, no rash. Neurologic--cranial nerves II through XII grossly intact. Rheumatologic--normal range of motion. Psychiatric--normal affect. Results & Data Results & Data Vital Signs (Past 12 Hours) Vital Signs Temp Pulse Pulse Resp BP BP Pulse Ox 10/02/23 11:41 97.3 F L 55 L 16 137/93 94 10/02/23 09:56 60 10/02/23 09:01 97.7 F 54 L 20 145/79 H 95 10/02/23 07:00 10/02/23 06:35 54 L 16 154/87 H 92 10/02/23 03:00 98.1 F 63 16 142/91 H 91 O2 Del Method 10/02/23 11:41 Room Air 10/02/23 09:56 10/02/23 09:01 Room Air 10/02/23 07:00 Room Air 10/02/23 06:35 Room Air 10/02/23 03:00 Room Air PG Care Time/CCT Total # of Minutes Spent Total Time Spent with Patient: Total time spent is greater than 50% in coordination of care (as documented) at patient's floor/unit and/or counseling patient: Coding Level of Care Code 21626 SUB INP/OBS CARE 2/35MIN Diagnoses (HFpEF) heart failure with preserved ejection fraction I50.30 Transaminitis R74.01 Elevated troponin R79.89 Atrial fibrillation, permanent I48.21 BPH (benign prostatic hypertrophy) N40.0 Lower extremity edema R60.0 Time Spent (min) 35
--- NOTE | 2023-10-02 13:37 | Electrocardiogram Report ---
Test Reason : Blood Pressure : / mmHG Vent. Rate : 061 BPM Atrial Rate : 048 BPM P-R Int : 000 ms QRS Dur : 140 ms QT Int : 522 ms P-R-T Axes : 000 -76 096 degrees QTc Int : 525 ms Atrial fibrillation with premature ventricular or aberrantly conducted complexes Left axis deviation Non-specific intra-ventricular conduction block Inferior infarct , age undetermined Abnormal ECG When compared with ECG of 30-SEP-2023 06:04, QRS duration has decreased Confirmed by Keenan Sepulveda ([id number]) on 10/02/2023 1:36:59 PM Referred By: REFERRED SELF Confirmed By:Johny Sepulveda
--- NOTE | 2023-10-02 23:07 | CT Scan Report ---
Exam(s): CT ABDOMEN + PELVIS Without Contrast EXAM: CT Abdomen and Pelvis Without Intravenous Contrast CLINICAL HISTORY: Reason for exam: lower abd pain. TECHNIQUE: Axial computed tomography images of the abdomen and pelvis without intravenous contrast. CTDI is 13.05 mGy and DLP is 591.09 mGy-cm. Automated exposure control was utilized for the study. A dose lowering technique was utilized adhering to the principles of ALARA. COMPARISON: No relevant prior studies available. FINDINGS: Lung bases: Bibasilar atelectasis with emphysematous changes. Prior cholecystectomy. Heart: Cardiomegaly. ABDOMEN: Liver: Unremarkable. Gallbladder and bile ducts: See above. Pancreas: Unremarkable. No ductal dilation. Spleen: Unremarkable. No splenomegaly. Adrenals: Unremarkable. No mass. Kidneys and ureters: Unremarkable. No obstructing stones. No hydronephrosis. Stomach and bowel: Moderate stool throughout the colon. Anastomotic sutures within the right colon. Scattered diverticula without evidence of diverticulitis. No obstruction. PELVIS: Appendix: No findings to suggest acute appendicitis. Bladder: Small bladder diverticula. No stones. Reproductive: Unremarkable as visualized. ABDOMEN and PELVIS: Intraperitoneal space: Unremarkable. No free air. No significant fluid collection. Bones/joints: Sternotomy changes noted. Moderate/severe multilevel degenerative changes with disc space narrowing and osteophyte formation. Compression fracture at L1, chronic. No dislocation. Soft tissues: Anterior abdominal wall postsurgical changes. Vasculature: Tortuous aorta with diffuse atherosclerotic disease. Aneurysmal dilatation of the descending aorta, recommend annual surveillance or surgical consult. Lymph nodes: Unremarkable. No enlarged lymph nodes. IMPRESSION: Tortuous aorta with diffuse atherosclerotic disease. Aneurysmal dilatation of the descending aorta, recommend annual surveillance or surgical consult. Other chronic appearing findings as described above. Electronically signed by: Hannah Lira MD 10/02/23 23:06 PM
[2023-10-03 08:41] LABS: BUN Creatinine Ratio 28.4 (10-20); Calcium 8.7 mg/dl (8.6-10.3); Creatinine Clr Calc Pharmacy 53.4 ml/min; Est GFR (African American) 90.1 ml/min; Est GFR (Non-African American) 77.8 ml/min; Potassium 3.8 mmol/L (3.5-5.1)
--- NOTE | 2023-10-03 12:44 | Discharge Summary ---
Date of Service October 03, 2023 Admission HPI Per Admitting Provider The patient is an 88-year-old male with a past medical history including permanent atrial fibrillation, BPH, chronic cerebral ischemia, chronic lower extremity edema, status post AVR, status post mitral valve repair, status post right lower extremity stent, aneurysm of right popliteal artery, hypertension and bilateral sensorineural hearing loss. He presents to the emergency department with mild chest discomfort, shortness of breath with exertion, and lower extremity edema Principal Diagnosis chf Discharge Exam The patient is awake, alert and oriented 3, well developed and well nourished, normocephalic and atraumatic, lying in bed and in no acute distress. HEENT--PERRL, EOMI, mucous membranes and oropharynx mildly dry Neck--supple. No JVD. No bruits. Thyroid normal, trachea midline, no adenopathy. Heart--normal S1 and S2. Systolic ejection murmur Lungs--Mild bibasilar crackles Abdomen--normal bowel sounds and soft. Extremities--no cyanosis or clubbing. Trace bilateral leg edema Dermatologic--normal skin turgor, normal color, no abnormal lymph nodes, no rash. Neurologic--cranial nerves II through XII grossly intact. Rheumatologic--normal range of motion. Psychiatric--normal affect. Discharge Data Allergies Allergy/AdvReac Type Severity Reaction Status Date / Time No Known Allergies Allergy Verified 09/28/23 19:27 Consultations 09/28/23 20:53 ED Decision to Admit Stat 10/02/23 09:45 Consult Cardiology Routine Ordered Studies 10/02/23 16:48 CT Abd and Pelvis [CT abd pelvis wo con] Routine Hospital Course (1) (HFpEF) heart failure with preserved ejection fraction: (2) Transaminitis: (3) Elevated troponin: (4) Atrial fibrillation, permanent: (5) BPH (benign prostatic hypertrophy): (6) Lower extremity edema: Plan HFpEF exacerbation Patient admitted to the hospital on account of worsening shortness of breath and leg edema The patient will be admitted to telemetry for serial cardiac enzymes, serial EKG's, cardiac rhythm monitoring and a 2-D echocardiogram with Dopplers. Most recent echocardiogram from 05/24/2022 with ejection fraction 60-65%, bioprosthetic aortic valve, moderate mitral regurgitation and tricuspid regurgitation, mild aortic regurgitation Hold oral furosemide 20 mg daily, and give 40 mg IV now, and then 40 mg IV every morning He is making good urine, has lost about 6 pounds of weight since his admission September 29, 2023 Continue clopidogrel, Xarelto. Feels overall better, shortness of breath is much improved Expressed a willingness to be discharged Abnormal LFTs/transaminitis- Likely hepatic congestion secondary to CHF Continue diuresis as above Some improvement in liver function following diuresis. 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 Downs Continue Xarelto CODE STATUS: Full code, Discharge home, follow-up with regular salesperson wigs Total Time Total Time Spent Total Time Spent (In Minutes): 35 Discharge Plan Discharge Items Patient Disposition: Home - Self-Care Reason For Visit: ACUTE HFPEF, ABNORMAL LFT'S Discharge Diagnosis: acute chf Activity: Resume your previous activity Non-emergency contact: Primary Care Provider and Design Engineer [employer] Call non-emergency contact if: you have any medication questions and your symptoms worsen Follow-up/Referrals: Jaclyn Hitchcock MD [Primary Care Provider] - 10/10/23 10:30 am (Hospital follow up scheduled October 09 at 10:30 with Deisi Lea) Diet: Heart Healthy Addtl Attending Provider Instructions: Please make appointment to follow-up your regular salesperson wigs Pending Studies at Discharge: No Stand-Alone Forms: [facility] [email or web address], Smoking Cessation Medications and DC Order Prescriptions: Continued atorvastatin 20 mg tablet 20 mg PO HS Qty: 90 3RF Xarelto 20 mg tablet 20 mg PO HS Qty: 90 3RF tamsulosin [Flomax] 0.4 mg capsule 0.8 mg PO HS Qty: 180 3RF sennosides-docusate sodium [Senokot-S] 8.6-50 mg tablet See Rx Instructions PO DAILY Qty: 30 5RF Rx Instructions: 1 to 4 tabs orally before bed; furosemide 20 mg tablet 20 mg PO QAM Qty: 90 1RF Rx Instructions: [facility] one in am, [facility] 10/09/22 lisinopril 5 mg tablet 5 mg PO HS Qty: 90 3RF trazodone 50 mg tablet 50 mg PO HS Qty: 30 5RF Rx Instructions: PER PT "ONLY TAKE THIS MED FOR SLEEP". finasteride [Proscar] 5 mg tablet 5 mg PO HS Qty: 30 5RF wbycwqbtbhzv-vizwcvxq-xluonu Tablet 1 tab PO HS clopidogrel 75 mg Tablet 75 mg PO QAM Qty: 90 3RF PreserVision AREDS-2 250-90-40-1 mg Tablet,Chewable 1 tab PO HS Discharge Orders: Discharge Order (Routine); Ordered 10/03/23 Ordered By: Guzman Bob Admission Data Admit Date/Time: 09/28/23 21:23 Attending Provider: Guzman Bob Admit Provider: Pito Hennessy Primary Care Provider: Jaclyn Hitchcock Other Providers: Pito Hennessy; Brandan Pereyra Other Interventions: Discharge Summary Assessment (RN) Last Done: 10/03/23 10:34 Coding Level of Care Code 54707 INP/OBS DISCH >30 MIN Diagnoses (HFpEF) heart failure with preserved ejection fraction I50.30 Transaminitis R74.01 Elevated troponin R79.89 Atrial fibrillation, permanent I48.21 BPH (benign prostatic hypertrophy) N40.0 Lower extremity edema R60.0 Time Spent (min) 35
== END 2023-10-03 14:25 | disposition home or self-care (01) | DRG 291 ==
LOC: ED 19:02 → SUATTDRO 21:23 → EDINP 21:23 → 4W 21:57

== ENCOUNTER 2023-10-10 14:50 | Observation (INO) ==
--- NOTE | 2023-10-10 14:59 | ED Triage Note ---
Date of Service October 10, 2023 Provider in Triage Author: Jarett Wheeler History of Present Illness This patient was briefly evaluated while in triage. An abbreviated physical exam was performed. This patient is a 88-year-old Male who presents to the ED for evaluation of multiple symptoms. The patient reports that he was recently discharged from our facility with heart failure. He currently complains of abdominal and left chest discomfort. Patient also reports mild shortness of breath. He denies any fever or chills. Physical Exam CONSTITUTIONAL: Healthy and well nourished. Patient does not appear in any acute distress. HEENT: Normocephalic, atraumatic. Pupils equal, round and reactive. RESPIRATORY: Clear to auscultation bilaterally with no wheezing, crackles, rhonchi or stridor. CARDIOVASCULAR: Regular rate and rhythm with no murmurs, rubs or gallops. GASTROINTESTINAL: Bowel sounds present in all quadrants. Soft and nontender to palpation. INTEGUMENTARY: No rash or other significant dermatologic conditions noted. HEMATOLOGIC: No ecchymosis or petechiae. PSYCHIATRIC: Positive affect. NEUROLOGIC: No focal neurologic deficits noted. Initial orders for labs and / or imaging were placed and patient was placed in the waiting area until a bed is available. Please see further documentation for the full ED course.
--- NOTE | 2023-10-10 15:33 | XRay Report ---
SINGLE VIEW CHEST CLINICAL HISTORY: Atypical chest pain FINDINGS: A PA chest radiograph is compared to study dated 09/28/2023 and correlated with chest CT date d 08/17/2021. The patient is status post midline sternotomy and cardiac valve surgery. The heart is en larged noting atherosclerotic calcification of the thoracic aorta. The pulmonary vasculature is not c ongested. Chronic interstitial thickening is similar to previous. There is bibasilar scarring/atelect asis. No airspace consolidation or pleural effusion is identified. No pneumothorax is seen. The skele brad structures are osteopenic. The bony thorax is grossly intact. IMPRESSION: Cardiomegaly with no acute cardiopulmonary abnormality identified. ACT 112: Negative or not required by law. Electronically signed by: Rishabh Ward M.D. 10/10/2023 3:32 PM
--- NOTE | 2023-10-10 16:14 | Electrocardiogram Report ---
Test Reason : Blood Pressure : / mmHG Vent. Rate : 064 BPM Atrial Rate : 000 BPM P-R Int : 000 ms QRS Dur : 140 ms QT Int : 488 ms P-R-T Axes : 000 -80 094 degrees QTc Int : 503 ms Atrial fibrillation Left axis deviation Non-specific intra-ventricular conduction delay Inferior infarct (cited on or before 02-OCT-2023) Anterior infarct (cited on or before 02-OCT-2023) Abnormal ECG When compared with ECG of 02-OCT-2023 06:23, Questionable change in initial forces of Septal leads Questionable change in initial forces of Inferior leads Confirmed by Steve Carmona ([id number]) on 10/10/2023 4:14:40 PM Referred By: Confirmed By:Steve Carmona
[2023-10-10 16:15] LABS: INR 1.6 (0.9-1.1); Partial Thromboplastin Ratio 1.2; Partial Thromboplastin Time 32 Seconds (21-31); Prothrombin Time 16.4 Seconds (9.0-12.0)
[2023-10-10 16:24] LABS: Basophils # (auto) 0.01 K/uL (0.00-0.20); Basophils % (auto) 0.2 %; Eosinophils # (auto) 0.12 K/uL (0.00-0.50); Eosinophils % (auto) 2.9 %; Hematocrit (blood only) 38.5 % (42.0-52.0); Hemoglobin 12.5 g/dl (14.0-18.0); Immature Granulocytes # (auto) 0.05 K/uL (0.01-0.20); Immature Granulocytes % (auto) 1.2 %; Lymphocytes # (auto) 0.99 K/uL (1.20-3.40); Lymphocytes % (auto) 23.6 %; Mean Corpuscular Hemoglobin 33.5 pg (25.0-34.0); Mean Corpuscular Hgb Conc 32.5 g/dL (32.0-36.0); Mean Corpuscular Volume 103.2 fL (80.0-100.0); Mean Platelet Volume 10.2 fL (9.4-12.4); Monocytes # (auto) 0.45 K/uL (0.11-0.59); Monocytes % (auto) 10.7 %; Neutrophils # (auto) 2.57 K/uL (1.40-6.50); Neutrophils % (auto) 61.4 %; Platelet Count 129 K/uL (130-400); RDW Coefficient of Variation 14.7 % (11.5-14.5); RDW Standard Deviation 55.4 fL (36.4-46.3); Red Blood Count 3.73 M/uL (4.70-6.10); White Blood Count 4.19 K/ul (4.8-10.8)
[2023-10-10 16:30] LABS: Alanine Aminotransferase 14 U/L (7-52); Albumin Globulin Ratio 1.5 (0.9-2); Albumin Level 3.8 gm/dl (3.4-5.0); Alkaline Phosphatase 68 U/L (34-104); Anion Gap 5 (3-11); Aspartate Aminotransferase 23 U/L (13-39); Bilirubin,Total 1.1 mg/dl (0.2-1.0); Blood Urea Nitrogen 24 mg/dl (6-23); Carbon Dioxide 30 mmol/L (21-32); Chloride 104 mmol/L (98-107); Est GFR (African American) 78.6 ml/min; Est GFR (Non-African American) 67.8 ml/min; Globulin 2.5 gm/dl (2.5-4.0); Glucose 85 mg/dl (70-99(Fasting)); Lipase 26 U/L (11-82); Potassium 4.1 mmol/L (3.5-5.1); Sodium 139 mmol/L (136-145); Total Protein 6.3 gm/dl (6.0-8.3)
[2023-10-10 16:35] LABS: Troponin I High Sensitivity 13.4 pg/ml (0-20)
--- NOTE | 2023-10-10 18:39 | Emergency Department Note ---
Impression & Plan SOB (shortness of breath), Anemia, CHF (congestive heart failure), Hypertension ED Provider Note NAME: AMY DIAZ Jr AGE: 88 SEX: M : 1935 ARRIVES VIA: Walk-In INFORMANT: [Patient] ED PROVIDER(S): [Rishabh Peacock MD] CHIEF COMPLAINT: Short of breath HISTORY OF PRESENT ILLNESS: The patient is an 88-year-old male who states that he was discharged from our hospital on the 12th, 7 days ago. He was in for heart failure. He diuresed while in the hospital. He is currently on 20 mg of Lasix daily. Patient has not noticed shortness of breath really since discharge. His breathing is short mostly with exertion. There has been no chest pain, no fever. No increased cough. Patient was concerned that he again may be fluid overloaded. PMHx/PSHx/Social Hx: See Below PHYSICAL EXAM: GENERAL: Patient is in no acute distress. HEENT: No acute trauma, normocephalic atraumatic, mucous membranes moist, no nasal congestion. NECK: No stridor, no adenopathy, no meningismus, trachea is midline. LUNGS: Crackles bilaterally, worse on the right. No wheezing or obvious respiratory distress. HEART: Somewhat irregular rhythm. Subtle systolic murmur, normal rate. ABDOMEN: Soft, nontender, no peritonitis. EXTREMITIES: No cyanosis, full range of motion of all the joints without pain or difficulty. Mild bilateral pedal edema, worse on the right. NEUROLOGIC: Oriented x 3, no acute motor or sensory deficits, no focal weakness. SKIN: No jaundice, no diaphoresis. DIFFERENTIAL DIAGNOSIS: CHF, anemia, cardiac ischemia, pneumonia, among others. EMERGENCY DEPARTMENT PROCEDURES: MEDICAL DECISION MAKING: There is a somewhat low white blood cell count at 4.19, this is baseline looking back at previous testing. Patient is anemic, this is baseline looking back at previous testing. Platelet count was slightly low but stable based on previous testing. INR was 1.6, likely elevated from his Xarelto use. There was no renal failure. No concerning electrolyte abnormality. No concerning liver enzyme elevation. No evidence for pancreatitis. ECG shows atrial fibrillation, no acute ST elevation. Cardiac enzyme testing x 1 is not consistent with acute cardiac injury. BNP is elevated consistent with fluid overload/CHF. Chest x- ray shows some chronic change, there is no pneumonia or pneumothorax. Chest CT does not show PE or pneumonia. On exam, the patient did have some crackles in his lower lung john consistent with some fluid overload. Patient was just in the hospital for heart failure. Presents back with increasing dyspnea. The patient was given IV Lasix 40 mg, he has diuresed about 1.5 L. The patient is hypertensive, he was due for some nighttime meds and may have missed these. He was ordered for his oral finasteride, oral lisinopril and oral Flomax. Given the dyspnea, given his age, given his heart failure diagnosis, I do think he deserves some observation and care in the hospital. I do not think it is safe for discharge home. Of note, the patient is currently living alone. I spoke with the patient and case management, the on-call hospitalist was consulted. Prior/Outside records/notes reviewed: Discharge summary note from 10/03/2023 describing his presentation for heart failure, his care and plan at discharge. ECG per my interpretation: Indication was shortness of breath. The ECG shows atrial fibrillation with a rate of 64. There is a right bundle branch block. There is no acute ST elevation, there is a potential old anterior and old inferior infarct. No PVCs. The QTc is 503. Continuous Cardiac Monitoring per my interpretation: An order was placed for continuous cardiac monitoring. The monitor shows a rate of 71 with atrial fibrillation. Imaging/x-ray results per my interpretation: Chest x-ray does not show CHF, pneumonia or pneumothorax. Chronic Medical/Social conditions affecting care: Advanced age. Care/Management discussed with: Case management, the on-call hospitalist. Level of care consideration(s): After review of the information above and other included data: --I believe the patient requires escalation of care to admission DISPOSITION: Admission Past Med/Surg History Problem List (Updated 10/10/23 @ 21:42 by Rishabh Peacock MD) Hypertension (Acute) CHF (congestive heart failure) (Acute) Anemia (Acute) SOB (shortness of breath) (Acute) (HFpEF) heart failure with preserved ejection fraction Transaminitis (Acute) Anemia (Acute) Elevated troponin (Acute) Chest pain (Acute) Atrial fibrillation, permanent Encounter for immunization Constipation BPH (benign prostatic hypertrophy) Recurrent falls Chronic cerebral ischemia COVID (Acute) Diplopia (Acute) Atrial fibrillation (Chronic) Hyperlipidemia (Chronic) Lower extremity edema (Chronic) Sleep disturbance (Chronic) Pulmonary nodules (Acute) Abdominal pain (Acute) Syncopal episodes (Acute) Valvular heart disease S/P AVR (aortic valve replacement) S/P mitral valve repair Anticoagulant long-term use Loose stools Lower extremity weakness Non-healing skin lesion Encounter for examination following treatment at hospital Fatigue Venous stasis ulcer Preoperative cardiovascular examination 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 following [address] Dr Azul. Sigmoid volvulus (Acute) resolved HTN (hypertension), benign (Chronic) controlled, stable per pt Sensorineural hearing loss of both ears Medical History History of COVID-2020, resolved, no symptoms, [facility] and "test was positive" History of blood clots pt unsure about this? Glaucoma Surgical History History of open reduction and internal fixation (ORIF) procedure ankle-pt unsure which side Hx of colonoscopy S/P colon resection 04/01/19 Dr. Andrzej Bellamy- Open sigmoidectomy with colocolostomy, flexible sigmoidoscopy, and transversus abdominus plane (TAP) block S/P repair of ventral hernia X 2 with placement of mesh S/P closure of ileostomy S/P small bowel resection H/O mitral valve repair done in [facility] History of back surgery age 32 History of right cataract surgery History of left cataract surgery History of aortic valve replacement All cardiac surgeries done in [facility]. Follows w/JULITO Baker Family History Mother , age 89 of heart issues Heart disease Hypertension Father , age 82 following complications after a fall Hypertension Denies family history of Ovarian cancer Prostate cancer Myocardial infarction Breast cancer Colorectal cancer Social History Smoking Status: Never smoker Second Hand Exposure: No; Do You Dip or Chew Tobacco: No; Hx Alcohol Use: Yes Alcohol type: wine Alcohol Intake Frequency: Monthly or Less Hx Substance Use: No Preferred Language: Kyrgyz Communication Ability: Effective Hearing Ability: Hard of Hearing Business Control Manager Required: No Beliefs That Will Affect Care: None marital status: Single Current Living Situation: Alone Current Living Situation Comment: Independent living at [facility] ([place] current occupational status: retired 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 How many Children do You have: 0 Feels Safe at Home: Yes Childhood Exposure to Second-Hand Smoke: No Diet: regular caffeine: No Dental Care, Regularly: Yes Physical Activity Frequency: Does not Exercise Seatbelt Use: always Sunscreen Use: No Assistive Devices: Walker Allergies Allergies Allergy/AdvReac Type Severity Reaction Status Date / Time No Known Allergies Allergy Verified 10/07/23 14:04 Home Meds Home Medications Medication Instructions Recorded Confirmed qoqgxgzyhecc-zikzfngl-fnmmij tablet 1 tab PO HS 08/27/21 10/10/23 vit C 250 mg-E 90 mg-zinc 40 1 tab PO HS 09/25/22 10/10/23 mg-copper 1 le-hwosup-rjiuzp chew tablet (PreserVision AREDS-2) Previous Rx's Medication Instructions Recorded clopidogrel 75 mg tablet 75 mg PO QAM #90 tabs 08/30/22 atorvastatin 20 mg tablet 20 mg PO HS #90 tabs 10/22/22 rivaroxaban 20 mg tablet (Xarelto) 20 mg PO HS #90 tabs 10/22/22 tamsulosin 0.4 mg capsule (Flomax) 0.8 mg (2 x 0.4 mg) PO HS #180 caps 03/25/23 sennosides 8.6 mg-docusate sodium See Rx Instructions PO DAILY #30 04/24/23 50 mg tablet (Senokot-S) tabs furosemide 20 mg tablet 20 mg PO QAM #90 tabs 06/02/23 lisinopril 5 mg tablet 5 mg PO HS #90 tabs 08/06/23 trazodone 50 mg tablet 50 mg PO HS #30 tabs 08/14/23 finasteride 5 mg tablet (Proscar) 5 mg PO HS #30 tabs 09/26/23 Results & Data (ED) Vital Signs Vital Signs - 24 hr 10/10/23 14:56 10/10/23 17:37 10/10/23 17:48 Temperature 36.7 C Temperature Source Temporal Artery Scan Pulse Rate 65 71 Pulse Rate [Apical] Pulse Rhythm Regular Pulse Rhythm [Apical] Pulse Strength Normal Pulse Strength [Apical] Respiratory Rate 20 Respiratory Effort / Characteristics Non-Labored Spontaneous Respiratory Depth Normal Respiratory Pattern Blood Pressure 140/110 H Blood Pressure [Right Arm] Blood Pressure Mean 120 Blood Pressure Mean [Right Arm] Blood Pressure Position Sitting Blood Pressure Position [Right Arm] Pulse Oximetry 98 Oxygen Delivery Method Room Air Room Air Sepsis Recent Fever Within 48 Hours No Sepsis New/Unexplained Change in Mental Status N/A Sepsis Action Taken by Nursing No Action Required 10/10/23 18:50 10/10/23 20:04 Temperature Temperature Source Pulse Rate Pulse Rate [Apical] 56 L 62 Pulse Rhythm Pulse Rhythm [Apical] Regular Pulse Strength Pulse Strength [Apical] Normal Respiratory Rate 24 20 Respiratory Effort / Characteristics Non-Labored Spontaneous Non-Labored Spontaneous Respiratory Depth Normal Normal Respiratory Pattern Regular Blood Pressure Blood Pressure [Right Arm] 161/109 H 169/129 H Blood Pressure Mean Blood Pressure Mean [Right Arm] 126 142 Blood Pressure Position Blood Pressure Position [Right Arm] Sitting Pulse Oximetry 96 97 Oxygen Delivery Method Room Air Room Air Sepsis Recent Fever Within 48 Hours Sepsis New/Unexplained Change in Mental Status Sepsis Action Taken by Skilled Nursing Medications Current Medication List: was personally reviewed by me Laboratory Data Attestation: I reviewed the patient's lab results. 10/10/23 15:41 10/10/23 15:41 Lab Results 10/10/23 Range/Units 15:41 WBC 4.19 L (4.8-10.8) K/ul RBC 3.73 L (4.70-6.10) M/uL Hgb 12.5 L (14.0-18.0) g/dl Hct 38.5 L (42.0-52.0) % MCV 103.2 H (80.0-100.0) fL MCH 33.5 (25.0-34.0) pg MCHC 32.5 (32.0-36.0) g/dL RDW Std Deviation 55.4 H (36.4-46.3) fL RDW Coeff of Any 14.7 H (11.5-14.5) % Plt Count 129 L (130-400) K/uL MPV 10.2 (9.4-12.4) fL Immature Gran % (Auto) 1.2 % Neut % (Auto) 61.4 % Lymph % (Auto) 23.6 % [place] % (Auto) 10.7 % Eos % (Auto) 2.9 % Baso % (Auto) 0.2 % Neut # (Auto) 2.57 (1.40-6.50) K/uL Lymph # (Auto) 0.99 L (1.20-3.40) K/uL [place] # (Auto) 0.45 (0.11-0.59) K/uL Eos # (Auto) 0.12 (0.00-0.50) K/uL Baso # (Auto) 0.01 (0.00-0.20) K/uL Immature Gran # (Auto) 0.05 (0.01-0.20) K/uL PT 16.4 H (9.0-12.0) Seconds INR 1.6 H (0.9-1.1) APTT 32 H (21-31) Seconds PTT Ratio 1.2 Sodium 139 (136-145) mmol/L Potassium 4.1 (3.5-5.1) mmol/L Chloride 104 (98-107) mmol/L Carbon Dioxide 30 (21-32) mmol/L Anion Gap 5 (3-11) BUN 24 H (6-23) mg/dl Creatinine 1.00 (0.6-1.4) mg/dl Est Cr Clr Drug Dosing Not Reportable Est GFR ( Amer) 78.6 ml/min Est GFR (Non-Af Amer) 67.8 ml/min BUN/Creatinine Ratio 24.0 H (10-20) Glucose 85 (70-99(Fasting)) mg/dl Calcium 9.0 (8.6-10.3) mg/dl Total Bilirubin 1.1 H (0.2-1.0) mg/dl AST 23 (13-39) U/L ALT 14 (7-52) U/L Alkaline Phosphatase 68 (34-104) U/L Troponin I High Sens 13.4 (0-20) pg/ml B-Natriuretic Peptide 341 H (0-100) pg/ml Total Protein 6.3 (6.0-8.3) gm/dl Albumin 3.8 (3.4-5.0) gm/dl Globulin 2.5 (2.5-4.0) gm/dl Albumin/Globulin Ratio 1.5 (0.9-2) Lipase 26 (11-82) U/L Administered Medications Discontinued Medications Furosemide (Furosemide 40 Mg/4 Ml Vial) 40 mg IV ONE ONE Stop: 10/10/23 18:26 Last Admin: 10/10/23 18:53 Dose: 40 mg Documented By: JAZZ Ioversol (Optiray 320 125ml) 119 ml IV ONCE ONE Stop: 10/10/23 19:09 Last Admin: 10/10/23 19:08 Dose: 119 ml Documented By: ZACHERY Imaging Data Radiologist's Impression: Chest X-Ray 10/10/23 15:00 SINGLE VIEW CHEST CLINICAL HISTORY: Atypical chest pain FINDINGS: A PA chest radiograph is compared to study dated 09/28/2023 and correlated with chest CT dated 08/17/2021. The patient is status post midline sternotomy and cardiac valve surgery. The heart is enlarged noting atherosclerotic calcification of the thoracic aorta. The pulmonary vasculature is not congested. Chronic interstitial thickening is similar to previous. There is bibasilar scarring/atelectasis. No airspace consolidation or pleural effusion is identified. No pneumothorax is seen. The skeletal structures are osteopenic. The bony thorax is grossly intact. IMPRESSION: Cardiomegaly with no acute cardiopulmonary abnormality identified. ACT 112: Negative or not required by law. Electronically signed by: Rishabh Ward M.D. 10/10/2023 3:32 PM Chest CTA 10/10/23 18:25 Exam(s): CTA CHEST IV Amt: 119 ML OPRTIRAY 320 EXAM: CT Angiography Chest With Intravenous Contrast CLINICAL HISTORY: Reason for exam: PE. TECHNIQUE: Axial computed tomographic angiography images of the chest with intravenous contrast. CTDI is 32 mGy and DLP is 594.17 mGy-cm. Automated exposure control was utilized for the study. A dose lowering technique was utilized adhering to the principles of ALARA. 3D and MIP reconstructed images were created and reviewed. COMPARISON: Chest x-ray 10/10/2023, CT chest 08/17/2021. FINDINGS: Pulmonary arteries: No pulmonary embolism. Aorta: Unchanged 4.8 cm AP diameter adjacent thoracic aortic aneurysm. No significant contrast bolus within the aorta to allow for the evaluation for dissection. Lungs: Diffuse interstitial prominence with predominant peripheral parenchymal changes suggesting scarring and fibrosis. Decreased scattered consolidation and resolved nodular densities present on the prior study. No focal lobar consolidation. Pleural space: No pleural effusion. No pneumothorax. Heart: Moderate cardiomegaly. No pericardial effusion. No evidence of RV dysfunction. Coronary artery calcifications. Bones/joints: Interval moderate approximately 40% anterior wedge compression fracture of the L1 vertebral body with sclerosis. Degenerative changes at T12-L1. Soft tissues: Unremarkable. Lymph nodes: Unremarkable. No enlarged lymph nodes. IMPRESSION: No pulmonary embolism. Unchanged ascending aortic aneurysm. Cannot assess for dissection due to inadequate contrast opacification of the aorta. Diffuse interstitial lung disease and peripheral scarring. No focal lobar pneumonia. Resolved nodular densities demonstrated in prior study. Age indeterminant moderate approximately 40% anterior wedge compression fracture of the L1 vertebral body with sclerosis. Otherwise no change. Electronically signed by: Salvador Adan M.D. 10/10/23 21:16 PM Discharge Plan Visit Data Chief Complaint: Shortness of Breath/Dyspnea Stated Complaint: SOB, CARDIAC ED Provider: Rishabh Peacock Discharge Problem: SOB (shortness of breath), Anemia, CHF (congestive heart failure), Hypertension Patient Disposition: Admitted As Inpatient Condition: Fair Forms Stand Alone Forms: [facility] [employer] Prescriptions Prescriptions: No Action atorvastatin 20 mg tablet 20 mg PO HS Qty: 90 3RF Xarelto 20 mg tablet 20 mg PO HS Qty: 90 3RF tamsulosin [Flomax] 0.4 mg capsule 0.8 mg PO HS Qty: 180 3RF sennosides-docusate sodium [Senokot-S] 8.6-50 mg tablet See Rx Instructions PO DAILY Qty: 30 5RF Rx Instructions: 1 to 4 tabs orally before bed; furosemide 20 mg tablet 20 mg PO QAM Qty: 90 1RF Rx Instructions: takes one in am, [facility] 10/09/22 lisinopril 5 mg tablet 5 mg PO HS Qty: 90 3RF trazodone 50 mg tablet 50 mg PO HS Qty: 30 5RF Rx Instructions: PER PT "ONLY TAKE THIS MED FOR SLEEP". finasteride [Proscar] 5 mg tablet 5 mg PO HS Qty: 30 5RF jhqtnikvogsa-khaziwit-wmbqae Tablet 1 tab PO HS clopidogrel 75 mg Tablet 75 mg PO QAM Qty: 90 3RF PreserVision AREDS-2 250-90-40-1 mg Tablet,Chewable 1 tab PO HS Referrals Referrals: Jaclyn Hitchcock MD [Primary Care Provider] - Discharge Problem: Anemia Qualifiers: Anemia type: unspecified type Qualified Code(s): D64.9 - Anemia, unspecified CHF (congestive heart failure) Qualifiers: Heart failure type: unspecified Heart failure chronicity: acute on chronic Q ualified Code(s): I50.9 - Heart failure, unspecified Hypertension Qualifiers: Hypertension type: unspecified Qualified Code(s): I10 - Essential (primary) hypertension
[2023-10-10] MEDS: FUROSEMIDE 40 MG/4 ML VIAL IV ONE (18:53)
[2023-10-10] MEDS: OPTIRAY 320 125ml IV ONE (19:08)
--- NOTE | 2023-10-10 21:18 | CT Scan Report ---
Exam(s): CTA CHEST IV Amt: 119 ML OPRTIRAY 320 EXAM: CT Angiography Chest With Intravenous Contrast CLINICAL HISTORY: Reason for exam: PE. TECHNIQUE: Axial computed tomographic angiography images of the chest with intravenous contrast. CTDI is 32 mGy and DLP is 594.17 mGy-cm. Automated exposure control was utilized for the study. A dose lowering technique was utilized adhering to the principles of ALARA. 3D and MIP reconstructed images were created and reviewed. COMPARISON: Chest x-ray 10/10/2023, CT chest 08/17/2021. FINDINGS: Pulmonary arteries: No pulmonary embolism. Aorta: Unchanged 4.8 cm AP diameter adjacent thoracic aortic aneurysm. No significant contrast bolus within the aorta to allow for the evaluation for dissection. Lungs: Diffuse interstitial prominence with predominant peripheral parenchymal changes suggesting scarring and fibrosis. Decreased scattered consolidation and resolved nodular densities present on the prior study. No focal lobar consolidation. Pleural space: No pleural effusion. No pneumothorax. Heart: Moderate cardiomegaly. No pericardial effusion. No evidence of RV dysfunction. Coronary artery calcifications. Bones/joints: Interval moderate approximately 40% anterior wedge compression fracture of the L1 vertebral body with sclerosis. Degenerative changes at T12-L1. Soft tissues: Unremarkable. Lymph nodes: Unremarkable. No enlarged lymph nodes. IMPRESSION: No pulmonary embolism. Unchanged ascending aortic aneurysm. Cannot assess for dissection due to inadequate contrast opacification of the aorta. Diffuse interstitial lung disease and peripheral scarring. No focal lobar pneumonia. Resolved nodular densities demonstrated in prior study. Age indeterminant moderate approximately 40% anterior wedge compression fracture of the L1 vertebral body with sclerosis. Otherwise no change. Electronically signed by: Salvador Adan M.D. 10/10/23 21:16 PM
[2023-10-10] MEDS: TAMSULOSIN HCL 0.4 MG CAP PO ONE (21:59)
[2023-10-10] MEDS: lisinopril 5 MG TAB PO ONE (21:59)
[2023-10-10] MEDS: FINASTERIDE 5 MG TAB PO STA (22:00)
--- NOTE | 2023-10-10 22:16 | History & Physical Report ---
Date of Service October 10, 2023 Assessment & Plan (1) (HFpEF) heart failure with preserved ejection fraction: Plan: -Echo done on 09/29/2023 showed ejection fraction of 50-55%, mild left ventricular hypertrophy, left atrium dilatation, right atrium dilatation, mild aortic regurgitation, mild to severe mitral regurgitation, inferior vena cava mildly dilated. -BNP of 341 (532 on last admission) -Leukopenia of 4.19 -Chest x-ray showed cardiomegaly without acute cardiopulmonary abnormalities. -Chest CTA negative for pulmonary embolism. -Hold oral furosemide 20 mg daily, given 40mg IV in the ED with 1.5L output, -Continue 40 mg IV Lasix every morning. -Fluid restriction of 1500ml. -Continue clopidogrel, Xarelto. -Hold lisinopril. (2) BPH (benign prostatic hypertrophy): Plan: -Continue tamsulosin and finasteride (3) Hypertension: Plan: -hold lisinopril (4) Hyperlipidemia: Plan: -Continue Lipitor 20 mg. (5) Atrial fibrillation, permanent: Plan: -Continue Xarelto 20 mg and Plavix 75 mg. (6) Thrombocytopenia: Plan: -Platelet count of 129, follow-up with daily labs. Plan Fluids: Fluid restriction of 1500 mL Nutrition: Heart healthy Code status: Full code DVT ppx: Xarelto Dispo: PCU/telemetry History of Present Illness Chief Complaint: CHF exacerbation Primary Care Provider: Jaclyn Hitchcock MD The patient is an 88-year-old male with a past medical history including permanent atrial fibrillation, BPH, chronic cerebral ischemia, chronic lower extremity edema, status post AVR, status post mitral valve repair, status post right lower extremity stent, aneurysm of right popliteal artery, hypertension and bilateral sensorineural hearing loss. He presents the hospital after being discharged on 10/03/2023 with shortness of breath with exertion and lower extremity edema. His recent hospitalization he was diuresed with IV Lasix 40 mg. He was sent home on 20 mg of Lasix p.o. Patient has been having shortness of breath since discharge. Majority of his shortness of breath is with exertion. Denies any chest pain, abdominal pain, difficulties in urination, or fever. Allergies Allergy/AdvReac Type Severity Reaction Status Date / Time No Known Allergies Allergy Verified 10/07/23 14:04 Home Medications Medication Instructions Recorded Confirmed Type yugjvnslklfn-eduglpav-pqvese tablet 1 tab PO HS 08/27/21 10/10/23 History clopidogrel 75 mg tablet 75 mg PO QAM #90 tabs 08/30/22 10/10/23 Rx vit C 250 mg-E 90 mg-zinc 40 1 tab PO HS 09/25/22 10/10/23 History mg-copper 1 na-ckfiww-uzuxwu chew tablet (PreserVision AREDS-2) atorvastatin 20 mg tablet 20 mg PO HS #90 tabs 10/22/22 10/10/23 Rx rivaroxaban 20 mg tablet (Xarelto) 20 mg PO HS #90 tabs 10/22/22 10/10/23 Rx tamsulosin 0.4 mg capsule (Flomax) 0.8 mg (2 x 0.4 mg) PO HS #180 caps 03/25/23 10/10/23 Rx sennosides 8.6 mg-docusate sodium See Rx Instructions PO DAILY #30 04/24/23 10/10/23 Rx 50 mg tablet (Senokot-S) tabs furosemide 20 mg tablet 20 mg PO QAM #90 tabs 06/02/23 10/10/23 Rx lisinopril 5 mg tablet 5 mg PO HS #90 tabs 08/06/23 10/10/23 Rx trazodone 50 mg tablet 50 mg PO HS #30 tabs 08/14/23 10/10/23 Rx finasteride 5 mg tablet (Proscar) 5 mg PO HS #30 tabs 09/26/23 10/10/23 Rx Past Med/Surg History Problem List (Updated 10/10/23 @ 23:03 by Rishabh Tian DO) Thrombocytopenia Hypertension (Acute) CHF (congestive heart failure) (Acute) Anemia (Acute) SOB (shortness of breath) (Acute) (HFpEF) heart failure with preserved ejection fraction Transaminitis (Acute) Anemia (Acute) Elevated troponin (Acute) Chest pain (Acute) Atrial fibrillation, permanent Encounter for immunization Constipation BPH (benign prostatic hypertrophy) Recurrent falls Chronic cerebral ischemia COVID (Acute) Diplopia (Acute) Atrial fibrillation (Chronic) Hyperlipidemia (Chronic) Lower extremity edema (Chronic) Sleep disturbance (Chronic) Pulmonary nodules (Acute) Abdominal pain (Acute) Syncopal episodes (Acute) Valvular heart disease S/P AVR (aortic valve replacement) S/P mitral valve repair Anticoagulant long-term use Loose stools Lower extremity weakness Non-healing skin lesion Encounter for examination following treatment at hospital Fatigue Venous stasis ulcer Preoperative cardiovascular examination 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 following [address] Dr Azul. Sigmoid volvulus (Acute) resolved HTN (hypertension), benign (Chronic) controlled, stable per pt Sensorineural hearing loss of both ears Medical History History of COVID-2020, resolved, no symptoms, tested at [facility] and "test was positive" History of blood clots pt unsure about this? Glaucoma Surgical History History of open reduction and internal fixation (ORIF) procedure ankle-pt unsure which side Hx of colonoscopy S/P colon resection 04/01/19 Dr. Andrzej Bellamy- Open sigmoidectomy with colocolostomy, flexible sigmoidoscopy, and transversus abdominus plane (TAP) block S/P repair of ventral hernia X 2 with placement of mesh S/P closure of ileostomy S/P small bowel resection H/O mitral valve repair done in [facility] History of back surgery age 32 History of right cataract surgery History of left cataract surgery History of aortic valve replacement All cardiac surgeries done in [facility]. Follows w/JULITO Baker Family History Mother , age 89 of heart issues Heart disease Hypertension Father , age 82 following complications after a fall Hypertension Denies family history of Ovarian cancer Prostate cancer Myocardial infarction Breast cancer Colorectal cancer Social History Smoking Status: Never smoker Second Hand Exposure: No; Do You Dip or Chew Tobacco: No; Tobacco Cessation Education Requested by Patient: No Hx Alcohol Use: Yes Alcohol type: wine Alcohol Intake Frequency: Monthly or Less Hx Substance Use: No Preferred Language: Albanian Communication Ability: Effective Hearing Ability: Hard of Hearing Lean Coach Required: No Beliefs That Will Affect Care: None marital status: Single Current Living Situation: Alone Current Living Situation Comment: Independent living at [facility] current occupational status: retired 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 How many Children do You have: 0 Other Information That Helps Us Care for You: No Feels Safe at Home: Yes Safety Concerns: Feels Safe At This Time Childhood Exposure to Second-Hand Smoke: No Diet: regular caffeine: No Dental Care, Regularly: Yes Physical Activity Frequency: Does not Exercise Seatbelt Use: always Sunscreen Use: No Assistive Devices: Cane and Walker Review of Systems Review of Systems: All systems reviewed & are unremarkable except as noted in Subjective Physical Exam Physical Exam: Constitutional: well-appearing, no acute distress HEENT: NCAT, no conjunctival injection CV: regular rhythm, no murmur appreciated, extremities well-perfused, bilateral lower extremity pitting edema Resp: Bilateral bibasilar crackles GI: soft, nondistended, nontender, BS normoactive MSK: no gross deformities appreciated Skin: warm, dry, no rash appreciated Neuro: alert, oriented, no focal neurologic deficit appreciated Results & Data Results & Data Vital Signs (Past 12 Hours) Vital Signs Temp Pulse Pulse Resp BP BP Pulse Ox 10/10/23 21:18 66 10/10/23 20:04 62 20 169/129 H 97 10/10/23 18:50 56 L 24 161/109 H 96 10/10/23 17:48 10/10/23 17:37 71 10/10/23 14:56 36.7 C 65 20 140/110 H 98 O2 Del Method 10/10/23 21:18 10/10/23 20:04 Room Air 10/10/23 18:50 Room Air 10/10/23 17:48 Room Air 10/10/23 17:37 10/10/23 14:56 Room Air Supervising Physician Co-Signing Physician Notes Attending addendum: I have physically seen this patient, have supervised the medical residents activities, and agree with the H&P unless as otherwise noted. Assessment and Plan: HFpEF exacerbation/permanent atrial fibrillation/hypertension/valvular heart disease/status post AVR and mitral valve repair- The patient will be admitted to telemetry for serial cardiac enzymes, serial EKG's, cardiac rhythm monitoring Most recent echo on 09/29/2023 with EF 50-55%, mild LVH, left atrium dilatation, right atrial dilatation, mild aortic regurgitation, mild to moderate mitral regurgitation. BNP 341 CTA chest negative for PE Given furosemide 40 mg IV in the ED Continue furosemide 40 mg IV every morning Fluid restriction to 1500 mL Continue clopidogrel 75 mg every morning, lisinopril 5 mg at bedtime, and Xarelto 20 mg at bedtime BPH with LUTS- Continue tamsulosin 0.8 mg at bedtime, and finasteride 5 mg at bedtime Hyperlipidemia-continue Lipitor 20 mg at bedtime Check a fasting lipid panel (3) Hypertension Hypertension type: unspecified Qualified Code(s): I10 - Essential (primary) hypertension (4) Hyperlipidemia Hyperlipidemia type: mixed hyperlipidemia Qualified Code(s): E78.2 - Mixed hyperlipidemia
[2023-10-10] MEDS ORDERED: ACETAMINOPHEN 325 MG TAB PO PRN (23:39)
[2023-10-10] MEDS ORDERED: ONDANSETRON INJ 2 MG/ML 2 ML VIAL IV PRN (23:39)
[2023-10-10] MEDS: ATORVASTATIN 20 MG TAB PO STA (23:49)
[2023-10-10] MEDS: RIVAROXABAN 20 MG TAB PO STA (23:50)
[2023-10-10] MEDS: traZODone HCL 50 MG TAB PO STA (23:50)
[2023-10-11] MEDS: DOCUSATE SODIUM/SENNA 50/8.6MG TAB PO STA (00:32)
[2023-10-11 06:23] LABS: Basophils # (auto) 0.01 K/uL (0.00-0.20); Basophils % (auto) 0.3 %; Eosinophils # (auto) 0.13 K/uL (0.00-0.50); Eosinophils % (auto) 3.3 %; Hematocrit (blood only) 35.6 % (42.0-52.0); Hemoglobin 11.7 g/dl (14.0-18.0); Immature Granulocytes # (auto) 0.01 K/uL (0.01-0.20); Immature Granulocytes % (auto) 0.3 %; Lymphocytes # (auto) 1.07 K/uL (1.20-3.40); Lymphocytes % (auto) 27.5 %; Mean Corpuscular Hgb Conc 32.9 g/dL (32.0-36.0); Mean Corpuscular Volume 100.3 fL (80.0-100.0); Mean Platelet Volume 10.1 fL (9.4-12.4); Monocytes # (auto) 0.46 K/uL (0.11-0.59); Monocytes % (auto) 11.8 %; Neutrophils # (auto) 2.21 K/uL (1.40-6.50); Neutrophils % (auto) 56.8 %; Platelet Count 123 K/uL (130-400); RDW Coefficient of Variation 14.4 % (11.5-14.5); RDW Standard Deviation 54.1 fL (36.4-46.3); Red Blood Count 3.55 M/uL (4.70-6.10); White Blood Count 3.89 K/ul (4.8-10.8)
[2023-10-11 06:38] LABS: BUN Creatinine Ratio 27.8 (10-20); Calcium 8.5 mg/dl (8.6-10.3); Creatinine Clr Calc Pharmacy 59.7 ml/min; Est GFR (African American) 94.2 ml/min; Est GFR (Non-African American) 81.3 ml/min; Potassium 3.5 mmol/L (3.5-5.1)
[2023-10-11] MEDS: FUROSEMIDE 40 MG/4 ML VIAL IV SCH (09:06)
[2023-10-11] MEDS: CLOPIDOGREL BISULFATE 75 MG TAB PO SCH (09:06)
--- NOTE | 2023-10-11 13:32 | Hospitalist Progress Note ---
Date of Service October 11, 2023 Assessment & Plan (1) CHF (congestive heart failure): Plan Exacerbation of HFpEF Compensated now but soft BP - monitor Hold further diuresis - IV or PO Hold antihypertensive meds follow BMP Hypertension Current SBP 90 / hold meds BPH - Continue Finasteride Atrial fibrillation Continue Xarelto OOB with assist PT/OT DVT PX - On Xarelto Full code Dispo - if BP stable overnight, d/c in AM Admission and Anticipated Discharge Date Admission Date: October 10, 2023 Subjective shortness of breath better but has not been OOB, no chest pain, palpitations Physical Exam Physical Exam: appears comfortable, thin built Lungs clear to auscultation bilaterally Heart RRR P/A Soft, NT, ND, BS+, No palpable masses Skin no rash but chronic venous stasis changes of b/l legs AAO#3 Non focal Results & Data Results & Data Vital Signs (Past 12 Hours) Vital Signs Temp Pulse Pulse Resp BP BP Pulse Ox 10/11/23 10:43 36.3 C L 53 L 16 91/53 L 95 10/11/23 08:00 50 L 10/11/23 08:00 10/11/23 07:13 36.4 C L 47 L 17 102/62 94 10/11/23 02:30 36.4 C L 48 L 18 127/80 94 O2 Del Method 10/11/23 10:43 Room Air 10/11/23 08:00 10/11/23 08:00 Room Air 10/11/23 07:13 Nasal Cannula 10/11/23 02:30 Room Air Reviewed Laboratory Results Reviewed Diagnostic Findings CXR report reviewed Medications Administered IV Furosemide 40mg PG Care Time/CCT Total # of Minutes Spent Total Time Spent with Patient: Total time spent is greater than 50% in coordination of care (as documented) at patient's floor/unit and/or counseling patient: Coding Level of Care Code 77412 SUB INP/OBS CARE 2/35MIN Diagnoses CHF (congestive heart failure) I50.9 Heart failure chronicity: acute on chronic Heart failure type: unspecified (1) CHF (congestive heart failure) Heart failure chronicity: acute on chronic Heart failure type: unspecified Qualified Code(s): I50.9 - Heart failure, unspecified
[2023-10-11] MEDS: RIVAROXABAN 20 MG TAB PO SCH (17:12)
[2023-10-11] MEDS: TAMSULOSIN HCL 0.4 MG CAP PO SCH (20:40)
[2023-10-11] MEDS: ATORVASTATIN 20 MG TAB PO SCH (20:40)
[2023-10-11] MEDS: CEROVITE ADV FORMULA TAB PO SCH (20:40)
[2023-10-11] MEDS: DOCUSATE SODIUM/SENNA 50/8.6MG TAB PO SCH (20:41)
[2023-10-11] MEDS: FINASTERIDE 5 MG TAB PO SCH (20:41)
[2023-10-11] MEDS ORDERED: NON-FORMULARY MEDICATION (Vit C,E-Zn-Coppr-Lutein-Zeaxan [Preservision Areds-2] 250-90-40- PO SCH (21:00)
[2023-10-12] MEDS: traZODone HCL 50 MG TAB PO SCH (00:51)
--- NOTE | 2023-10-12 05:18 | Billing Data ---
Date of Service October 12, 2023 Coding Level of Care Code 55857 INT INP/OBS CARE
[2023-10-12 08:43] LABS: BUN Creatinine Ratio 30.5 (10-20); Calcium 8.9 mg/dl (8.6-10.3); Creatinine Clr Calc Pharmacy 55.9 ml/min; Est GFR (African American) 92.8 ml/min; Est GFR (Non-African American) 80.1 ml/min; Magnesium 1.9 mg/dl (1.7-2.4); Potassium 3.7 mmol/L (3.5-5.1)
[2023-10-12] MEDS: FUROSEMIDE 20 MG TAB PO SCH (09:57)
[2023-10-12] MEDS: POTASSIUM CHLORIDE CRTAB 20 MEQ TABCR PO STA (10:53)
--- NOTE | 2023-10-12 11:16 | Discharge Summary ---
Discharge Summary Date of Service October 12, 2023 Principal Dx & Hospital Course #1 = Principal Diagnosis (1) Acute exacerbation of chronic heart failure: Patient's shortness of breath improved with IV Furosemide 40mg daily. Patient's outpatient regimen of Furosemide 20mg PO Daily was changed to 40mg PO daily as he became decompensated on the lower dose after recent hospitalization.. Low sodium diet and 1500 cc fluid restriction advised as well. PE was ruled with CTA Chest. Notes For Next Care Provider Medication Changes From Visit NONE Admission HPI Per Admitting Provider The patient is an 88-year-old male with a past medical history including permanent atrial fibrillation, BPH, chronic cerebral ischemia, chronic lower extremity edema, status post AVR, status post mitral valve repair, status post right lower extremity stent, aneurysm of right popliteal artery, hypertension and bilateral sensorineural hearing loss. He presents the hospital after being discharged on 10/03/2023 with shortness of breath with exertion and lower extremity edema. His recent hospitalization he was diuresed with IV Lasix 40 mg. He was sent home on 20 mg of Lasix p.o. Patient has been having shortness of breath since discharge. Majority of his shortness of breath is with exertion. Denies any chest pain, abdominal pain, difficulties in urination, or fever. Discharge Exam Pleasant elderly gentleman in no distress Lungs clear to auscultation bilaterally Heart RRR PA Soft, NT, ND, BS+ Skin no rash AAO## Non focal Updated Medication List Medication Instructions Recorded Confirmed Type iopproxnjgiq-saskyclb-fcigef tablet 1 tab PO HS 08/27/21 10/10/23 History clopidogrel 75 mg tablet 75 mg PO QAM #90 tabs 08/30/22 10/10/23 Rx vit C 250 mg-E 90 mg-zinc 40 1 tab PO HS 09/25/22 10/10/23 History mg-copper 1 pj-nyfngx-bosydv chew tablet (PreserVision AREDS-2) atorvastatin 20 mg tablet 20 mg PO HS #90 tabs 10/22/22 10/10/23 Rx rivaroxaban 20 mg tablet (Xarelto) 20 mg PO HS #90 tabs 10/22/22 10/10/23 Rx tamsulosin 0.4 mg capsule (Flomax) 0.8 mg (2 x 0.4 mg) PO HS #180 caps 03/25/23 10/10/23 Rx sennosides 8.6 mg-docusate sodium See Rx Instructions PO DAILY #30 04/24/23 10/10/23 Rx 50 mg tablet (Senokot-S) tabs furosemide 20 mg tablet 20 mg PO QAM #90 tabs 06/02/23 10/10/23 Rx lisinopril 5 mg tablet 5 mg PO HS #90 tabs 08/06/23 10/10/23 Rx trazodone 50 mg tablet 50 mg PO HS #30 tabs 08/14/23 10/10/23 Rx finasteride 5 mg tablet (Proscar) 5 mg PO HS #30 tabs 09/26/23 10/10/23 Rx Hospital Stay Data Consultations 10/10/23 21:34 ED Decision to Admit Stat Diagnostic Imagining Performed 10/10/23 18:25 CT angio chest PE protocol Stat Pending Results Patient Have Any Pending Studies at Discharge: No Discharge Instructions Given to Patient (Per Discharging Provider) Follow up with your primary physician Total Time Total Time Spent Total Time Spent (In Minutes): 40 minutes Coding Level of Care Code 92686 INP/OBS DISCH >30 MIN Diagnoses Acute exacerbation of chronic heart failure I50.9
--- NOTE | 2023-10-13 11:54 | Electrocardiogram Report ---
Test Reason : Blood Pressure : / mmHG Vent. Rate : 047 BPM Atrial Rate : 054 BPM P-R Int : 000 ms QRS Dur : 134 ms QT Int : 594 ms P-R-T Axes : 000 -66 138 degrees QTc Int : 525 ms Atrial fibrillation with slow ventricular response Left axis deviation Left bundle branch block Abnormal ECG When compared with ECG of 10-OCT-2023 15:39, Left bundle branch block has replaced Right bundle branch block Confirmed by Brandan Pereyra ([id number]) on 10/13/2023 11:53:36 AM Referred By: He dozier [facility] Confirmed By:Brandan Pereyra
== END 2023-10-12 12:23 | disposition home or self-care (01) ==
LOC: ED 14:50 → 4W 14:50 → SUATTDRO 22:41 → 4W 23:15